=== PATIENT | male | born 1960 | race African-American/Black ===

== ENCOUNTER 2018-01-21 13:45 | Emergency (ER) | payer MEDICARE, OTHER ==
[2018-01-21] MEDS ORDERED: CARVEDILOL 12.5 MG TABLET PO ONE (14:48)
[2018-01-21] MEDS ORDERED: ASPIRIN 81 MG TABLET, CHEWABLE PO ONE (14:48)
[2018-01-21] MEDS ORDERED: ISOSORBIDE DINITRATE 20 MG TABLET PO ONE (14:49)
[2018-01-21] MEDS ORDERED: SPIRONOLACTONE 25 MG TABLET PO ONE (14:49)
[2018-01-21] MEDS ORDERED: HYDRALAZINE HCL 10 MG TABLET PO ONE (14:49)
[2018-01-21] MEDS ORDERED: FUROSEMIDE 20 MG TABLET PO ONE (14:49)
--- NOTE | 2018-01-21 15:03 | ER Document Report ---
ED Medical Screen (RME) - General Chief Complaint: Leg Swelling Stated Complaint: BILATERAL KNEE PAIN/RIGHT HIP PAIN Time Seen by Provider: 01/21/18 14:39 Mode of Arrival: Wheelchair Information source: Patient TRAVEL OUTSIDE OF THE [place] IN LAST 30 DAYS: No - HPI Patient complains to provider of: pain in right hip and knees Onset: Other - This 59-year-old male with a history of chronic aches and pains worsening pain in the bilateral knees as well as right hip over the last several days. He notes that he has been unable to obtain standard follow-up, he did have some swelling in his lower extremities previously which she was told may be related to his heart or potentially his kidneys. He has known hypertension and takes many medications for it but did not take any today as a result his blood pressure is markedly elevated. Nothing is seemed to help his pain since it started he does not try to take anything. He denies any history of surgeries in the past. Denies any trauma preceding this event. Denies any fevers, chills, abdominal pain, diarrhea constipation dysuria shortness of breath or chest pain. - Related Data Allergies/Adverse Reactions: lisinopril Allergy (Verified 01/21/18 14:47) Past Medical History - General Information source: Patient - Social History Chew tobacco use (# tins/day): No Frequency of alcohol use: Occasional Drug Abuse: None - Past Medical History Cardiac Medical History: Reports: Hx Hypertension Renal/ Medical History: Denies: Hx Peritoneal Dialysis Review of Systems - Review of Systems -: Yes All other systems reviewed and negative Physical Exam - Vital signs Vitals: Temp Pulse Resp BP Pulse Ox 98.9 F 110 H 18 195/126 H 97 01/21/18 13:52 01/21/18 13:52 01/21/18 13:52 01/21/18 13:52 01/21/18 13:52 - General General appearance: Appears well In distress: None - HEENT Head: Normocephalic Eyes: Normal Conjunctiva: Normal Cornea: Normal Extraocular movements intact: Yes - Respiratory Respiratory status: No respiratory distress Chest status: Nontender Breath sounds: Normal Chest palpation: Normal - Cardiovascular Rhythm: Regular Heart sounds: Normal auscultation Murmur: No - Abdominal Inspection: Normal Distension: No distension Tenderness: Nontender - Back Back: Normal - Extremities General upper extremity: Normal inspection, Nontender, Normal ROM, Normal strength General lower extremity: Other - The lower extremities are symmetric, there is normal range of motion in the hip, normal range of motion the knees and ankles as well Modest swelling of the left knee with no obvious effusion Normal range of motion in the knees, normal range of motion of the ankles Hip: Other - The right hip is tender to palpation, he does have intact range of motion in the right hip Thigh: Normal Knee: Other - The knees are relatively symmetric, the left knee is slightly swollen in comparison to the right, there is no obvious effusion there is a slight soft tissue swelling. The patella is not ballotable in either knee. Course - Re-evaluation Re-evalutation: 01/21/18 20:39 This a 4-year-old male who presents for pain in his hips as well as his knees bilaterally. He denies any systemic signs of infection or trauma's preceding this event. He has had aches and pains like this in the past for which [facility]. He denies any other illnesses similarly. We will obtain x-rays of these joints, examination demonstrates what likely represents osteoarthritis. X-ray of the pelvis demonstrates what appears to be avascular necrosis of the hips, will refer this patient to orthopedics for potential intervention and arthroplasty. Patient is in agreement with this at this time. - Vital Signs Vital signs: Temp Pulse Resp BP Pulse Ox 98.5 F 99 16 125/88 H 96 01/21/18 16:14 01/21/18 16:14 01/21/18 16:14 01/21/18 16:20 01/21/18 16:14 Doctor's Discharge - Discharge Clinical Impression: Avascular necrosis, Arthritis Knee pain, bilateral Qualifiers: Chronicity: acute Qualified Code(s): M25.561 - Pain in right knee Condition: Good Disposition: HOME, SELF-CARE Instructions: Arthritis ([facility]) Additional Instructions: Your seen today in the emergency department for your hip and knee pain. It was identified that you have avascular necrosis of your hips. This is a chronic disease for which she will likely require evaluation by an orthopedic surgeon. Schedule an appointment with an orthopedic surgeon this week to evaluate your hips and knees. You may require a hip replacement. Return for worsening fevers, chills, inability to walk. You should use the medication prescribed to you as needed for pain. Forms: Elevated Blood Pressure Referrals: JENNIFER PEDRO MD [ACTIVE STAFF] - Follow up in 1 week
--- NOTE | 2018-01-21 15:27 | RADIOLOGY REPORT (SQ) ---
EXAM DESCRIPTION: HIP RIGHT AP/LATERAL COMPLETED DATE/TIME: 01/21/2018 3:13 pm REASON FOR STUDY: hip pain COMPARISON: None. NUMBER OF VIEWS: Two views. TECHNIQUE: AP pelvis and additional frog-leg view of the right hip. LIMITATIONS: None. FINDINGS: MINERALIZATION: Normal. RIGHT HIP: Advanced avascular necrosis with sclerosis right femoral head, articular surface collapse, and a [id number] appearance of the right hip. No acute fracture LEFT HIP: Avascular necrosis left hip without collapse of the articular surface. No acute fracture PUBIS AND ISCHIUM: No fracture. PELVIS: No fracture. SACRUM: No fracture or dislocation. No worrisome bone lesions. LOWER LUMBAR SPINE: No fracture or dislocation. No worrisome bone lesions. No significant disc disea se. SOFT TISSUES: No findings. OTHER: No other significant finding. IMPRESSION: Bilateral avascular necrosis of the hips TECHNICAL DOCUMENTATION: JOB ID: [id number] [employer]- All Rights Reserved Reading location - IP/workstation name: [email or web address]
--- NOTE | 2018-01-21 15:27 | RADIOLOGY REPORT (SQ) ---
EXAM DESCRIPTION: KNEE BILATERAL 1-2 VIEWS COMPLETED DATE/TIME: 01/21/2018 3:13 pm REASON FOR STUDY: pain and swelling COMPARISON: None. NUMBER OF VIEWS: Two views right knee, two views left knee TECHNIQUE: AP and lateral standing bilateral knees. LIMITATIONS: None. FINDINGS: Normal bone density. No fracture or malalignment. Small bilateral knee joint effusions. No significant joint space narrowing or bony spurring IMPRESSION: Small bilateral knee joint effusions. Otherwise, Unremarkable study TECHNICAL DOCUMENTATION: JOB ID: [id number] All Rights Reserved Reading location - IP/workstation name: [email or web address]
[2018-01-21 16:20] VITALS: BP 125/88
[2018-01-21] MEDS ORDERED: HYDROCODONE/ACETAMINOPHEN 5-325 MG (6 TAB/ER DISP) PO PRN (16:33)
== END 2018-01-21 16:51 | disposition home or self-care (01) ==
LOC: ER 13:45
DX: M19.90 Unspecified osteoarthritis, unspecified site (principal); M79.89 Other specified soft tissue disorders; M25.551 Pain in right hip; M25.562 Pain in left knee; M25.561 Pain in right knee; I10 Essential (primary) hypertension
CPT/HCPCS: 99283; 73502; 73560; A9270 ×5; J3490

== ENCOUNTER → 2018-02-09 | Outpatient (CLI) | payer MEDICARE, OTHER ==
[2018-02-09 10:21] LABS: ABSOLUTE EOSINOPHILS # (AUTO) 0.1 10^3/uL (0.0-0.6); ABSOLUTE LYMPHOCYTES (AUTO) 1.2 10^3/uL (0.5-4.7); ABSOLUTE MONOCYTES (AUTO) 0.5 10^3/uL (0.1-1.4); ABSOLUTE NEUT (AUTO) 3.7 10^3/uL (1.7-8.2); BASOPHILS % (AUTO) 0.9 % (0-2); HEMATOCRIT 42.6 % (37.9-51.0); HEMOGLOBIN 14.2 g/dL (13.5-17.0); LYMPHOCYTES % (AUTO) 22.2 % (13-45); MEAN CORPUSCULAR HEMOGLOBIN 31.6 pg (27.0-33.4); MEAN CORPUSCULAR HGB CONC 33.4 g/dL (32.0-36.0); MEAN CORPUSCULAR VOLUME 95 fl (80-97); MONOCYTES % (AUTO) 9.3 % (3-13); PLATELET COUNT 165 10^3/uL (150-450); RED BLOOD COUNT 4.49 10^6/uL (4.35-5.55); RED CELL DISTRIBUTION WIDTH 15.7 % (11.5-14.0); SEGMENTED NEUTROPHILS % (AUTO) 66.6 % (42-78); TOTAL CELLS COUNTED % (AUTO) 100 %; WHITE BLOOD COUNT 5.5 10^3/uL (4.0-10.5)
[2018-02-09 10:35] LABS: APPEARANCE,URINE CLEAR; BILIRUBIN,URINE NEGATIVE (NEGATIVE); COLOR,URINE STRAW; GLUCOSE, URINE NEGATIVE (NEGATIVE); KETONES,URINE NEGATIVE (NEGATIVE); LEUKOCYTE ESTERASE,URINE NEGATIVE (NEGATIVE); NITRITE,URINE NEGATIVE (NEGATIVE); PROTEIN,URINE 30 mg/dL (NEGATIVE); URINE SPECIFIC GRAVITY 1.006; UROBILINOGEN,URINE NEGATIVE mg/dL (<2.0)
[2018-02-09 10:51] LABS: ANION GAP 14 (5-19); BLOOD UREA NITROGEN 25 mg/dL (7-20); CALCIUM 9.9 mg/dL (8.4-10.2); CARBON DIOXIDE 21 mmol/L (22-30); CHLORIDE 106 mmol/L (98-107); GLUCOSE 94 mg/dL (75-110); POTASSIUM 4.8 mmol/L (3.6-5.0); SODIUM 141.4 mmol/L (137-145)
--- NOTE | 2018-02-09 11:32 | EKG REPORT ---
SEVERITY:- ABNORMAL ECG - SINUS RHYTHM TRINI, CONSIDER BIATRIAL ABNORMALITIES LEFT BUNDLE BRANCH BLOCK : Confirmed by: Maeve Pitts MD 09-Feb-2018 11:32:15
--- NOTE | 2018-02-09 14:03 | RADIOLOGY REPORT (SQ) ---
EXAM DESCRIPTION: CHEST PA/LATERAL COMPLETED DATE/TIME: 02/09/2018 9:34 am REASON FOR STUDY: PRE-OP COMPARISON: None. EXAM PARAMETERS: NUMBER OF VIEWS: two views TECHNIQUE: Digital Frontal and Lateral radiographic views of the chest acquired. RADIATION DOSE: NA LIMITATIONS: none FINDINGS: LUNGS AND PLEURA: No opacities, masses or pneumothorax. No pleural effusion. MEDIASTINUM AND HILAR STRUCTURES: No masses or contour abnormalities. HEART AND VASCULAR STRUCTURES: Heart normal size. No evidence for failure. BONES: No acute findings. HARDWARE: None in the chest. OTHER: No other significant finding. IMPRESSION: NO SIGNIFICANT RADIOGRAPHIC FINDING IN THE CHEST. TECHNICAL DOCUMENTATION: JOB ID: [id number] [employer]- All Rights Reserved Reading location - IP/workstation name: [email or web address]
== END ==
LOC: OD 08:58
PROVIDERS: ATTEND Orthopaedic Surgery
DX: Z01.810 Encounter for preprocedural cardiovascular examination (principal); Z01.812 Encounter for preprocedural laboratory examination; Z01.818 Encounter for other preprocedural examination
CPT/HCPCS: 36415; 71046; 80048; 81001; 85025; 93005; 93010

== ENCOUNTER → 2018-02-26 | Outpatient (CLI) | payer MEDICARE, OTHER ==
[2018-02-26 08:35] LABS: ALANINE AMINOTRANSFERASE 25 U/L (21-72); ALBUMIN 3.9 g/dL (3.5-5.0); ALKALINE PHOSPHATASE 102 U/L (38-126); ANION GAP 13 (5-19); ASPARTATE AMINO TRANSFERASE 30 U/L (17-59); BILIRUBIN,DIRECT 0.3 mg/dL (0.0-0.4); BILIRUBIN,TOTAL 0.6 mg/dL (0.2-1.3); BLOOD UREA NITROGEN 41 mg/dL (7-20); CALCIUM 9.7 mg/dL (8.4-10.2); CARBON DIOXIDE 24 mmol/L (22-30); CHLORIDE 102 mmol/L (98-107); CHOLESTEROL 150.52 mg/dL (0-200); GLUCOSE 100 mg/dL (75-110); SODIUM 139.2 mmol/L (137-145); TOTAL PROTEIN 7.8 g/dL (6.3-8.2); TRIGLYCERIDES 65 mg/dL (<150)
[2018-02-26 08:46] LABS: DIRECT LDL 42 mg/dL (<100)
== END ==
LOC: OD 07:32
PROVIDERS: ATTEND Internal Medicine
DX: I25.10 Atherosclerotic heart disease of native coronary artery without angina pectoris (principal); I50.9 Heart failure, unspecified; N18.3 Chronic kidney disease, stage 3 (moderate); Z79.899 Other long term (current) drug therapy
CPT/HCPCS: 36415; 80053; 80061; 82306; 84443

== ENCOUNTER 2018-03-09 08:23 | Inpatient (IN) | payer MEDICARE, OTHER ==
[~2018-03-09 08:23] MED LIST: BUPIVACAINE HCL 0.25% /EPINEPHRINE INJ/PF 30 ML SDV ONE; BUPIVACAINE HCL/DEX-WATER/PF 15 MG/2 ML AMPULE ONE; BUPIVACAINE INJ/PF LIPOSOME/PF 266 MG/20 ML SDV IJ PRN; CEFAZOLIN INJ 1 GM VIAL IV PRN; IBUPROFEN 800 MG in DEXTROSE 5%-WATER 250 ML IV PRN; LANSOPRAZOLE 15 MG TAB.RAP.DR PO PRN; LIDOCAINE 0.5% INJ-PF (5 MG/ML) 50 ML SDV SUBCUT PRN; OXYCODONE HCL SR 10 MG TABLET PO PRN; VANCOMYCIN HCL 1,000 MG in DEXTROSE 5%-WATER 250 ML IV PRN
[2018-03-09] MEDS ORDERED: CEFAZOLIN INJ 1 GM VIAL ONE (08:53)
[2018-03-09] MEDS ORDERED: OXYCODONE HCL SR 10 MG TABLET PO ONE (08:54)
[2018-03-09] MEDS ORDERED: LANSOPRAZOLE 15 MG TAB.RAP.DR ONE (08:54)
[2018-03-09] MEDS: LACTATED RINGERS 1000 ML IV PRN ×2 (09:15→16:23)
[2018-03-09] MEDS ORDERED: HYDROMORPHONE HCL INJ/PF 2 MG/ML AMPULE ONE (10:16)
[2018-03-09] MEDS ORDERED: FENTANYL CITRATE INJ/PF 100 MCG/2 ML AMPUL ONE (10:16)
[2018-03-09] MEDS ORDERED: MIDAZOLAM 2 MG/2 ML INJ ONE (10:16)
[2018-03-09] MEDS ORDERED: ONDANSETRON HCL INJ/PF 4 MG/2 ML SDV ONE (10:16)
[2018-03-09] MEDS ORDERED: EPHEDRINE SULFATE INJ 50 MG/1 ML AMPULE ONE (10:16)
[2018-03-09] MEDS ORDERED: TRANEXAMIC ACID INJ/PF 1,000 MG/10 ML SDV IV ONE ×2 (10:17→15:30)
[2018-03-09] MEDS ORDERED: THROMBIN (BOVINE) TOPICAL 5000 UNIT VIAL ONE (10:43)
[2018-03-09] MEDS ORDERED: FENTANYL CITRATE INJ/PF 100 MCG/2 ML AMPUL IV PRN ×3 (12:10)
[2018-03-09] MEDS ORDERED: DIPHENHYDRAMINE HCL 50 MG/ML VIAL IV PRN ×2 (12:10→12:43)
[2018-03-09] MEDS ORDERED: MEPERIDINE HCL/PF INJ 25 MG/1 ML DISP.SYRIN IV PRN (12:10)
--- NOTE | 2018-03-09 12:42 | Operative Report ---
Operative Report DATE OF SURGERY: 03/09/18 PREOPERATIVE DIAGNOSIS: Right hip avascular necrosis OPERATION: Right hip arthroplasty SURGEON: JENNIFER PEDRO ANESTHESIA: Spinal TISSUE REMOVED OR ALTERED: Femoral head to pathology ESTIMATED BLOOD LOSS: 100 PROCEDURE: Implants used: Femur: Cheikh Accolade 2 stem, size 5 Acetabular shell: 54 mm hemispherical shell Liner: 36 mm flat cross-link polyethylene liner Head: 36 mm chrome cobalt head +5 neck The patient is placed in a left lateral decubitus position on the operating table. The right lower extremity and hindquarter is prepped and draped in a sterile fashion. A curvilinear incision was made over the greater trochanter a posterior approach the hip was taken. The femoral head is dislocated and the femoral neck transected using an oscillating saw. Attention was next turned to the acetabulum. Soft tissues cleared off the acetabulum using electrocautery. The acetabulum was then prepared using a series of hemispherical reamers until a 54 millimeters reamer is seated. Subsequently a 34 millimeters Cheikh titanium hemispherical shell is impacted into position and secured with one screw. A standard flat 6 millimeters cross- link liner is impacted into the shell. Attention was next turned to the femur. Access is gained to the femoral canal using a box osteotome to the piriformis fossa. The femur is then prepared using a series of broaches until a number 5 broach is seated. A trial reduction was now performed using a 36 millimeters head with 5 neck. Preoperative leg length was recreated and is excellent anterior posterior stability. A decision was made to proceed with the above construct. All trial implants were removed. The wound is irrigated with pulsed lavage. A number 5 stem is impacted into the femoral canal. A trial reduction was again performed with a 36 mm head and a +5 neck. Findings as previously. The hip was dislocated one last time and the final chrome-cobalt head is impacted onto the trunnion. The hip was reduced. Wound is copiously irrigated with pulsed lavage. Sent closed in layers using interrupted Vicryl followed by roc. A sterile dressing is applied and the patient's returned to recovery room in satisfactory patient.
[2018-03-09] MEDS ORDERED: MORPHINE SULFATE 10 MG/ML INJ IV PRN ×4 (12:43)
[2018-03-09] MEDS ORDERED: ACETAMINOPHEN 325 MG TABLET PO PRN (12:43)
[2018-03-09] MEDS ORDERED: ONDANSETRON HCL INJ/PF 4 MG/2 ML SDV IV PRN (12:43)
[2018-03-09] MEDS ORDERED: ZOLPIDEM TARTRATE 5 MG TABLET PO PRN (12:43)
[2018-03-09] MEDS ORDERED: OXYCODONE HCL IR 5 MG TABLET PO PRN (12:43)
[2018-03-09] MEDS ORDERED: MAG HYDROX/AL HYDROX/SIMETH SUSP 30 ML UDCUP PO PRN (12:43)
[2018-03-09] MEDS ORDERED: ONDANSETRON 4 MG TAB.RAPDIS PO PRN (12:43)
[2018-03-09] MEDS ORDERED: RINGERS SOLUTION,LACTATED 1,000 ML IV PRN (12:43)
--- NOTE | 2018-03-09 13:57 | RADIOLOGY REPORT (SQ) ---
EXAM DESCRIPTION: PELVIS AP COMPLETED DATE/TIME: 03/09/2018 1:21 pm REASON FOR STUDY: Post Op Long Cassette in PACU M16.11 UNILATERAL PRIMARY OSTEOARTHRITIS, RIGHT HI P COMPARISON: None. NUMBER OF VIEWS: One view TECHNIQUE: AP Pelvis LIMITATIONS: None. FINDINGS: A postoperative image of the pelvis and proximal femurs shows a right hip arthroplasty in good position. IMPRESSION: Right hip arthroplasty. Refer to operative note for further information. TECHNICAL DOCUMENTATION: JOB ID: [id number] [employer]- All Rights Reserved Reading location - IP/workstation name: [email or web address]
[2018-03-09] MEDS ORDERED: HYDRALAZINE HCL 10 MG TABLET PO SCH (14:00)
[2018-03-09] MEDS: PREGABALIN 75 MG CAPSULE PO SCH (17:27)
[2018-03-09] MEDS: SENNOSIDES/DOCUSATE 8.6-50 MG 1 EACH TABLET PO SCH (17:27)
[2018-03-09] MEDS: HYDRALAZINE HCL 10 MG TABLET PO SCH (17:27)
[2018-03-09] MEDS: IBUPROFEN 800 MG in NORMAL SALINE 250 ML IV SCH (17:28)
[2018-03-09] MEDS ORDERED: ACETAMINOPHEN 1,000 MG/100 ML RTUPB IV ONE (18:43)
[2018-03-09] MEDS: OXYCODONE HCL SR 10 MG TABLET PO SCH (21:31)
[2018-03-09] MEDS: ISOSORBIDE DINITRATE 20 MG TABLET PO SCH (21:32)
[2018-03-09] MEDS: CARVEDILOL 6.25 MG TABLET PO SCH (21:32)
[2018-03-09] MEDS ORDERED: ISOSORBIDE DINITRATE 10 MG TABLET PO SCH (22:00)
[2018-03-10] MEDS: HYDRALAZINE HCL 10 MG TABLET PO SCH ×4 (01:00→18:21)
[2018-03-10] MEDS ORDERED: VANCOMYCIN HCL 1,000 MG in DEXTROSE 5%-WATER 250 ML IV ONE (01:00)
[2018-03-10] MEDS: IBUPROFEN 800 MG in NORMAL SALINE 250 ML IV SCH ×3 (02:13→18:21)
[2018-03-10] MEDS: LANSOPRAZOLE 30 MG TAB.RAP.DR PO SCH (06:25)
--- NOTE | 2018-03-10 07:20 | PDOC PROGRESS REPORT ---
Subjective Progress Note for:: 03/10/18 Reason For Visit: RIGHT HIP AVASCULAR NECROSIS 58-year-old black male postop day 1 status post right hip arthroplasty. Patient with no complaints overnight. Patient was not seen by physical therapy yesterday because of prolonged acting spinal anesthetic. Physical Exam Vital Signs: Temp Pulse Resp BP Pulse Ox 36.8 C 78 18 148/80 H 98 03/09/18 23:32 03/09/18 23:32 03/09/18 19:30 03/09/18 23:32 03/09/18 23:32 Intake & Output 03/09/18 03/10/18 03/11/18 06:59 06:59 06:59 Intake Total 4000 Output Total 3275 Balance 725 Physical Exam: Middle-aged black male sitting upright in bed smiling and in no apparent distress. Patient is alert oriented and appropriate. General appearance: PRESENT: no acute distress Head exam: PRESENT: normocephalic Respiratory exam: PRESENT: unlabored Cardiovascular exam: PRESENT: RRR Pulses: PRESENT: +1 pedal pulses bilateral Vascular exam: PRESENT: normal capillary refill GI/Abdominal exam: PRESENT: soft Rectal exam: PRESENT: deferred Extremities exam: PRESENT: other - Right hip dressing clean dry and intact. Leg lengths are equal. Distal neurovascular examination is intact. Neurological exam: PRESENT: alert, awake, oriented to person, oriented to place , oriented to time, oriented to situation. ABSENT: motor sensory deficit Psychiatric exam: PRESENT: appropriate affect, normal mood. ABSENT: homicidal ideation, suicidal ideation Skin exam: PRESENT: dry, intact, warm. ABSENT: cyanosis, rash Results Laboratory Results: 03/09/18 08:46 03/09/18 03/09/18 08:46 08:46 Potassium 4.9 Blood Type O POSITIVE Antibody Screen NEGATIVE Impressions: Pelvis X-Ray 03/09/18 12:44 IMPRESSION: Right hip arthroplasty. Refer to operative note for further information. Status: Imported from PACS Assessment & Plan - Diagnosis (1) Arthritis of right hip Is this a current diagnosis for this admission?: Yes Plan: Patient to be mobilized with physical therapy today and weightbearing as tolerated basis. Anticipate discharge home tomorrow with home health services and DME. - Time Time Spent with patient: Less than 15 minutes Anticipated discharge: Home with Homehealth Within: within 24 hours
[2018-03-10 07:44] LABS: HEMATOCRIT 33.2 % (37.9-51.0); HEMOGLOBIN 11.3 g/dL (13.5-17.0); MEAN CORPUSCULAR HEMOGLOBIN 31.8 pg (27.0-33.4); MEAN CORPUSCULAR HGB CONC 33.9 g/dL (32.0-36.0); MEAN CORPUSCULAR VOLUME 94 fl (80-97); PLATELET COUNT 142 10^3/uL (150-450); RED BLOOD COUNT 3.54 10^6/uL (4.35-5.55); RED CELL DISTRIBUTION WIDTH 15.6 % (11.5-14.0); WHITE BLOOD COUNT 9.2 10^3/uL (4.0-10.5)
[2018-03-10 07:57] LABS: ANION GAP 11 (5-19); BLOOD UREA NITROGEN 39 mg/dL (7-20); CALCIUM 8.8 mg/dL (8.4-10.2); CARBON DIOXIDE 18 mmol/L (22-30); CHLORIDE 108 mmol/L (98-107); GLUCOSE 122 mg/dL (75-110); POTASSIUM 4.6 mmol/L (3.6-5.0); SODIUM 136.6 mmol/L (137-145)
[2018-03-10] MEDS ORDERED: CARVEDILOL PHOSPHATE 20 MG PO SCH (10:00)
[2018-03-10] MEDS: SENNOSIDES/DOCUSATE 8.6-50 MG 1 EACH TABLET PO SCH ×2 (13:59→18:21)
[2018-03-10] MEDS: PRENATAL VITAMIN W DHA CAPSULE PO SCH (13:59)
[2018-03-10] MEDS: OXYCODONE HCL SR 10 MG TABLET PO SCH ×2 (13:59→21:39)
[2018-03-10] MEDS: SPIRONOLACTONE 25 MG TABLET PO SCH (14:00)
[2018-03-10] MEDS: ASPIRIN 81 MG TABLET, CHEWABLE PO SCH (14:00)
[2018-03-10] MEDS: FUROSEMIDE 40 MG TABLET PO SCH (14:00)
[2018-03-10] MEDS: PREGABALIN 75 MG CAPSULE PO SCH ×2 (14:00→18:21)
[2018-03-10] MEDS: CARVEDILOL 6.25 MG TABLET PO SCH ×2 (14:00→21:38)
[2018-03-10] MEDS: ISOSORBIDE DINITRATE 20 MG TABLET PO SCH ×2 (16:35→21:38)
[2018-03-11] MEDS: HYDRALAZINE HCL 10 MG TABLET PO SCH ×3 (00:23→11:44)
[2018-03-11] MEDS: IBUPROFEN 800 MG in NORMAL SALINE 250 ML IV SCH (02:02)
[2018-03-11 05:48] LABS: HEMATOCRIT 33.4 % (37.9-51.0); MEAN CORPUSCULAR HEMOGLOBIN 31.3 pg (27.0-33.4); MEAN CORPUSCULAR VOLUME 95 fl (80-97); PLATELET COUNT 141 10^3/uL (150-450); RED BLOOD COUNT 3.52 10^6/uL (4.35-5.55); RED CELL DISTRIBUTION WIDTH 15.7 % (11.5-14.0); WHITE BLOOD COUNT 8.1 10^3/uL (4.0-10.5)
[2018-03-11] MEDS: LANSOPRAZOLE 30 MG TAB.RAP.DR PO SCH (05:56)
[2018-03-11 08:34] VITALS: BP 172/80
--- NOTE | 2018-03-11 08:42 | PDOC DISCHARGE SUMMARY ---
General - Admit/Disc Date/PCP Admission Date/Primary Care Provider: 03/09/18 08:23 DAVIAN SANDY MD Discharge Date: 03/11/18 - Discharge Diagnosis (1) Arthritis of right hip Is this a current diagnosis for this admission?: Yes - Additional Information Resuscitation Status: Full Code Home Medications: Aspirin [Aspirin 81 mg Chewable Tablet] 81 mg PO DAILY 02/26/18 Carvedilol Phosphate [Carvedilol ER] 20 mg PO DAILY 02/26/18 Furosemide [Lasix 40 mg Tablet] 40 mg PO DAILY 02/26/18 Hydralazine HCl [Apresoline 10 mg Tablet] 10 mg PO QID 02/26/18 Isosorbide Dinitrate [Isordil Titradose 10 mg Tablet] 20 mg PO BID 02/26/18 Spironolactone [Aldactone 25 mg Tablet] 25 mg PO DAILY 02/26/18 History of Present Illness History of Present Illness: OLYA RACHEL is a 58 year old male The patient is a 58-year-old black male with progressive right hip pain and functional disability secondary to osteoarthritis and may be avascular necrosis. Patient is admitted for elective right hip arthroplasty. Hospital Course Hospital Course: Patient is admitted through the operating where he undergoes uncomplicated right hip arthroplasty. Is returned to the floor in satisfactory condition. He is not initially seen by physical therapy on the day of surgery because of the timing of his return to the floor. He seen by physical therapy the next day at which point is not appreciated that he has a right foot drop that is associate with both motor and sensory components. He seen by physical therapy makes excellent progress with ambulation. By the second postoperative morning both his motor function and his sensory function seem to be improving. He is ready for discharge with home health services and DME. Physical Exam Vital Signs: Temp Pulse Resp BP Pulse Ox 36.3 C 65 15 172/80 H 97 03/11/18 08:00 03/11/18 08:00 03/11/18 08:00 03/11/18 08:00 03/11/18 08:00 Intake & Output 03/10/18 03/11/18 03/12/18 06:59 06:59 06:59 Intake Total 4250 1636 Output Total 3275 1575 Balance 975 61 Weight 62.5 kg Physical Exam: Small thin middle-aged black male lying in a hospital bed who is alert appropriate and conversant. General appearance: PRESENT: no acute distress Head exam: PRESENT: normocephalic Respiratory exam: PRESENT: unlabored Cardiovascular exam: PRESENT: RRR Pulses: PRESENT: +1 pedal pulses bilateral Vascular exam: PRESENT: normal capillary refill GI/Abdominal exam: PRESENT: soft Rectal exam: PRESENT: deferred Extremities exam: PRESENT: other - Right hip dressing is clean dry and intact. Leg lengths are clinically equal. Motor function to the plantar flexors of the right lower extremity are intact. Motor function to the dorsiflexors of the ankle and the toes is less than 3 out of 5. There is brisk capillary refill. Neurological exam: PRESENT: alert, awake, oriented to person, oriented to place , oriented to time, oriented to situation, motor sensory deficit Psychiatric exam: PRESENT: appropriate affect, normal mood. ABSENT: homicidal ideation, suicidal ideation Skin exam: PRESENT: dry, intact, warm. ABSENT: cyanosis, rash Results Laboratory Results: 03/11/18 05:17 03/10/18 07:20 03/11/18 05:17 WBC 8.1 RBC 3.52 L Hgb 11.0 L Hct 33.4 L MCV 95 MCH 31.3 MCHC 33.0 RDW 15.7 H Plt Count 141 L Impressions: Pelvis X-Ray 03/09/18 12:44 IMPRESSION: Right hip arthroplasty. Refer to operative note for further information. Status: Imported from PACS Qualifiers - * PATIENT BEING DISCHARGED WITH ANY OF THE FOLLOWING DIAGNOSIS: No VTE patient discharged on overlapping Therapy?: Yes Plan Discharge Plan: Patient ready for discharge home with home health services in the knee. Follow- up with Dr. Girish Barney [place] for surgery in 2 weeks for staple removal. Time Spent: Less than 30 Minutes
[2018-03-11] MEDS ORDERED: IBUPROFEN 800 MG in DEXTROSE 5%-WATER 250 ML IV SCH (10:00)
[2018-03-11] MEDS: SENNOSIDES/DOCUSATE 8.6-50 MG 1 EACH TABLET PO SCH (10:24)
[2018-03-11] MEDS: ASPIRIN 81 MG TABLET, CHEWABLE PO SCH (10:24)
[2018-03-11] MEDS: SPIRONOLACTONE 25 MG TABLET PO SCH (10:24)
[2018-03-11] MEDS: OXYCODONE HCL SR 10 MG TABLET PO SCH (10:24)
[2018-03-11] MEDS: PRENATAL VITAMIN W DHA CAPSULE PO SCH (10:25)
[2018-03-11] MEDS: ISOSORBIDE DINITRATE 20 MG TABLET PO SCH (10:25)
[2018-03-11] MEDS: PREGABALIN 75 MG CAPSULE PO SCH (10:25)
[2018-03-11] MEDS: FUROSEMIDE 40 MG TABLET PO SCH (10:25)
[2018-03-11] MEDS: CARVEDILOL 6.25 MG TABLET PO SCH (10:25)
== END 2018-03-11 15:13 | disposition home health service (06) | DRG 470 ==
LOC: INOR 08:23 → 4S 15:00
PROVIDERS: ADMIT Orthopaedic Surgery; ATTEND Orthopaedic Surgery
PROC: 0SR90JZ Replacement of Right Hip Joint with Synthetic Substitute, Open Approach (ICD-10-PCS; principal; 2018-03-09 11:15)
DX: M16.11 Unilateral primary osteoarthritis, right hip (principal); Z79.82 Long term (current) use of aspirin; Z79.899 Other long term (current) drug therapy; I10 Essential (primary) hypertension; Z88.8 Allergy status to other drugs, medicaments and biological substances
CPT/HCPCS: 01214; 36415; 72170; 80048; 84132; 85027; 86850; 86900; 86901; 88304; 88311; 94799; C1776; G8978-GP; G8979-GP; G8987-GO; G8988-GO; J0690; J1170; J1741; J2250; J2405; J3010; J3370; J3490; J7050; J7060; J7120

== ENCOUNTER 2018-08-21 02:25 | Emergency (ER) | payer MEDICARE ==
[2018-08-21 03:03] LABS: ABSOLUTE BASOPHILS # (AUTO) 0.1 10^3/uL (0.0-0.2); ABSOLUTE LYMPHOCYTES (AUTO) 0.5 10^3/uL (0.5-4.7); ABSOLUTE MONOCYTES (AUTO) 0.5 10^3/uL (0.1-1.4); ABSOLUTE NEUT (AUTO) 5.5 10^3/uL (1.7-8.2); BASOPHILS % (AUTO) 1.2 % (0-2); EOSINOPHILS % (AUTO) 0.6 % (0-6); HEMATOCRIT 38.3 % (37.9-51.0); HEMOGLOBIN 12.2 g/dL (13.5-17.0); LYMPHOCYTES % (AUTO) 7.9 % (13-45); MEAN CORPUSCULAR HEMOGLOBIN 26.8 pg (27.0-33.4); MEAN CORPUSCULAR VOLUME 84 fl (80-97); MONOCYTES % (AUTO) 7.6 % (3-13); PLATELET COUNT 226 10^3/uL (150-450); RED BLOOD COUNT 4.56 10^6/uL (4.35-5.55); RED CELL DISTRIBUTION WIDTH 19.5 % (11.5-14.0); SEGMENTED NEUTROPHILS % (AUTO) 82.7 % (42-78); TOTAL CELLS COUNTED % (AUTO) 100 %; WHITE BLOOD COUNT 6.7 10^3/uL (4.0-10.5)
[2018-08-21 03:05] LABS: INTERNATIONAL RATION (INR) 1.36; PARTIAL THROMBOPLASTIN TIME 33.5 SEC (23.5-35.8); PROTHROMBIN TIME 17.5 SEC (11.4-15.4)
--- NOTE | 2018-08-21 03:12 | RADIOLOGY REPORT (SQ) ---
EXAM DESCRIPTION: XR CHEST 1 VIEW COMPLETED DATE/TME: 08/21/2018 02:43 CLINICAL HISTORY: 58 years Male, stroke COMPARISON: 02/09/18 NUMBER OF VIEWS/TECHNIQUE: 1/AP FINDINGS: Adequate lung volume, mild central edema pattern, moderate hazy opacity-effusion of the right lower hemithorax, mildly enlarged cardiac silhouette, and intact bony thorax. IMPRESSION: Mild CHF pattern. Differential diagnosis includes pulmonary edema and atypical pneumonia.
--- NOTE | 2018-08-21 03:42 | RADIOLOGY REPORT (SQ) ---
EXAM DESCRIPTION: CT NECK ANGIOGRAPHY WITHOUT THEN WITH IV CONTRAST, CT HEAD ANGIOGRAPHY WITHOUT THEN WITH IV CONTRAST COMPLETED DATE/TME: 08/21/2018 02:43 CLINICAL HISTORY: 58 years, Male, stroke COMPARISON: None. TECHNIQUE: Axial CT images of the head and neck were obtained after the injection of IV contrast. MPR and MIP reconstructions were performed. DLP 1402. Images stored on PACS. All CT scanners at this facility use dose modulation, iterative reconstruction, and/or weight based dosing when appropriate to reduce radiation dose to as low as reasonably achievable (ALARA). [facility]: Dose Right [facility]: CareDose [facility]: Dose Right [facility]: Teradose 4D [facility]: Smart Technologies LIMITATIONS: None. FINDINGS: CTA NECK: A large right pleural effusion is partially visualized Aortic arch: Bovine arch. Mild atherosclerosis. No significant great vessel origin stenosis. Moderate atherosclerotic calcifications of the origin of the left subclavian artery Left carotid system: There is approximately 60% stenosis of the carotid bulb by calcified atherosclerotic plaque. There is less than 30% stenosis of the proximal left internal carotid artery by calcified atherosclerotic plaque Right carotid system: The common carotid artery, carotid bifurcation , and internal carotid artery have normal course, caliber, and contour without atherosclerosis or stenosis by NASCET criteria Vertebral arteries: Left dominant system. Normal course, caliber, and contour without atherosclerosis or stenosis>] Nonvascular tissues: No mucosal contour abnormality, abnormal enhancement, or asymmetry. Normal salivary and thyroid glands. No lymphadenopathy. CTA BRAIN: Distal Internal carotid arteries: Normal course, caliber, and contour without atherosclerosis or stenosis [place] of [place]: Standard configuration without proximal stenosis or aneurysm. Anterior cerebral arteries: No focal stenosis or aneurysm. Middle cerebral arteries: No focal stenosis or aneurysm Posterior cerebral arteries: No focal stenosis or aneurysm. Vertebrobasilar circulation: The intradural vertebral arteries, basilar artery, and all cerebellar branches are patent without focal stenosis or aneurysm. Veins: The major dural venous sinus, cortical and deep cerebral veins are patent. Paranasal sinuses: Clear IMPRESSION: No major branch occlusion, flow-limiting stenosis or aneurysm is identified intracranially. No hemodynamic significant stenosis of the bilateral cervical portions of the internal carotid arteries. Approximate 60% stenosis of the left carotid bulb. No cervical vertebral stenosis. TECHNICAL DOCUMENTATION: Quality ID # 436: Final reports with documentation of one or more dose reduction techniques (e.g., Automated exposure control, adjustment of the mA and/or kV according to patient size, use of iterative reconstruction technique) copyright 2010 [email or web address]- All Rights Reserved
[2018-08-21 03:49] LABS: ALANINE AMINOTRANSFERASE 83 U/L (21-72); ALBUMIN 2.5 g/dL (3.5-5.0); ALKALINE PHOSPHATASE 297 U/L (38-126); ANION GAP 12 (5-19); ASPARTATE AMINO TRANSFERASE 56 U/L (17-59); BILIRUBIN,DIRECT 1.1 mg/dL (0.0-0.4); BILIRUBIN,TOTAL 1.3 mg/dL (0.2-1.3); BLOOD UREA NITROGEN 43 mg/dL (7-20); CALCIUM 8.2 mg/dL (8.4-10.2); CARBON DIOXIDE 17 mmol/L (22-30); CHLORIDE 110 mmol/L (98-107); CREATINE KINASE 124 U/L (55-170); GLUCOSE 95 mg/dL (75-110); POTASSIUM 4.3 mmol/L (3.6-5.0); TOTAL PROTEIN 5.8 g/dL (6.3-8.2)
[2018-08-21 04:00] LABS: CREATINE KINASE MB 4.09 ng/mL (<4.55)
[2018-08-21] MEDS ORDERED: ASPIRIN 300 MG SUPP, RECTAL PR ONE (04:04)
[2018-08-21 04:17] LABS: TROPONIN I 0.687 ng/mL
[2018-08-21] MEDS ORDERED: FUROSEMIDE INJ/PF 40 MG/4 ML SDV IV ONE (04:57)
--- NOTE | 2018-08-21 05:22 | RADIOLOGY REPORT (SQ) ---
EXAM DESCRIPTION: CT HEAD WITHOUT IV CONTRAST COMPLETED DATE/TME: 08/21/2018 00:00 CLINICAL HISTORY: 58 years, Male, possible stroke COMPARISON: None. TECHNIQUE: Axial CT images of the brain were obtained without contrast. Sagittal and coronal reformats were performed. DLP 1402. Images stored on PACS. All CT scanners at this facility use dose modulation, iterative reconstruction, and/or weight based dosing when appropriate to reduce radiation dose to as low as reasonably achievable (ALARA). [facility]: Dose Right [facility]: CareDose [facility]: Dose Right [facility]: Teradose 4D [facility]: [employer] LIMITATIONS: None. FINDINGS: There is no cortical infarct, hemorrhage, mass, edema, hydrocephalus, or extra-axial fluid collection. The lou-white matter differentiation is preserved. There is mild diffuse cerebral atrophy with moderate periventricular and deep white matter microvascular changes. The paranasal sinuses and mastoid air cells are clear. There is no acute fracture. IMPRESSION: No acute intracranial abnormality. TECHNICAL DOCUMENTATION: Quality ID # 436: Final reports with documentation of one or more dose reduction techniques (e.g., Automated exposure control, adjustment of the mA and/or kV according to patient size, use of iterative reconstruction technique) copyright 2010 [email or web address]- All Rights Reserved
--- NOTE | 2018-08-21 05:29 | ER Document Report ---
Entered by SONIA LOPEZ SCRIBE 08/21/18 0250 Acting as scribe for:ALKA WASHBURN DO ED General - General Chief Complaint: S/S of Possible Stroke Stated Complaint: SWOLLEN FEET Time Seen by Provider: 08/21/18 02:32 Primary Care Provider: JACKI JOHNSON MD [Primary Care Provider] - Follow up as needed Mode of Arrival: Ambulatory Information source: Patient Notes: Patient is a 58 year old male with renal failure, HTN, CHF presenting to the emergency department via EMS due to altered mental status. EMS states the patient was found laying on the floor by his family approximately 1hr prior to arrival. Family states the patient is able to talk at baseline and report his last known well was at 2000 last night. EMS states the patient was found covered in lemon pie. They state his pupils were pinpoint and he had decreased respirations so they proceeded to administer 3mg of Narcan which increased his respirations. They also report the patient's right arm is held in flexion. EMS reports a history of renal failure. TRAVEL OUTSIDE OF THE [place] IN LAST 30 DAYS: No - Related Data Allergies/Adverse Reactions: lisinopril Allergy (Verified 03/09/18 09:47) Past Medical History - General Information source: Emergency Med Personnel, [facility] Records - Social History Smoking Status: Unknown if Ever Smoked Family History: Reviewed & Not Pertinent - Past Medical History Cardiac Medical History: Reports: Hx Hypertension Musculoskeletal Medical History: Reports Hx Arthritis - hips Review of Systems - Review of Systems -: Yes ROS unobtainable due to patient's medical condition Neurological/Psychological: See HPI Physical Exam - Vital signs Vitals: Temp Resp BP Pulse Ox 97.7 F 23 H 160/99 H 98 08/21/18 02:40 08/21/18 02:40 08/21/18 02:40 08/21/18 02:40 Interpretation: Hypertensive - Notes Notes: GENERAL: Drowsy. See Neuro below. HEAD: Normocephalic, atraumatic. EYES: Pupils equal, round, and reactive to light. Arcus senilis, gaze deviation to the left. ENT: Oral mucosa moist, tongue midline. NECK: Full range of motion. Supple. Trachea midline. LUNGS: Clear to auscultation bilaterally, no wheezes, rales, or rhonchi. No respiratory distress. HEART: Regular rate and rhythm. No murmurs, gallops, or rubs. ABDOMEN: Soft, non-tender. Non-distended. Bowel sounds present in all 4 quadrants. No guarding, rigidity, or rebound. EXTREMITIES: Moves all 4 extremities spontaneously. 3+ pitting edema to the BLE, left foot is slightly larger than right. Radial and dorsalis pedis pulses 2/4 bilaterally. No cyanosis. NEUROLOGICAL: Drowsy. Able to close and open eyes on command, does not follow commands to squeeze fingers. Aphasia. Does not withdraw from painful stimuli, does not differentiate between sharp/dull testing. Right facial droop, does not change with grimace. Resists movement of right arm which is held at flexion of the right elbow over the abdomen. Slight gaze deviation to the left, no evidence of extinction. Able to lift both left and right leg and maintain them in the air for 5 seconds. Unable to follow commands well enough to test [id number] and [id number]. PSYCH: Drowsy. SKIN: Warm, dry. No rashes or lesions noted. Course - Re-evaluation Re-evalutation: 08/21/18 05:22 Patient was last known normal at 8 PM, he did not arrive here until 2:30 AM, he is well outside of timeframe for TPA, sent for CT of the head followed by CTA of the head and neck despite renal failure to look for large vessel occlusion that might be amenable to clot retrieval. CT scan of head did not show any bleed, CT angiogram of the head and neck did not show any large vessel occlusion. CBC shows mild anemia with hemoglobin 12.2, coags are prolonged with a PT of 17.5 and INR of 1.36, CMP shows low CO2 at 17, acute on chronic renal failure with a BUN of 43 and a creatinine of 3.09, cardiac enzymes showed non-STEMI with a troponin of 0.687, acute congestive heart failure with a proBNP of 23,000, chest x-ray is consistent with this as well, EKG is nonischemic. Patient is not hypoxic. Patient was given rectal aspirin for both his stroke and his PR. Discussed case with transfer center and then discussed with Dr. Patricio the neurologist as well. He accepts the patient in transfer, helicopter has been auto launched and is landing now. He recommends against giving Lovenox at this time and holding off until he arrives at [facility] for further assessment. 08/21/18 05:22 08/21/18 05:28 Helicopter is at bedside. Patient remained stable for transport. - Vital Signs Vital signs: Temp Pulse Resp BP Pulse Ox 97.7 F 25 H 181/128 H 100 08/21/18 02:40 08/21/18 05:01 08/21/18 05:01 08/21/18 05:01 - Laboratory Result Diagrams: 08/21/18 02:50 08/21/18 02:50 Laboratory results interpreted by me: 08/21/18 08/21/18 08/21/18 02:50 02:50 02:50 Hgb 12.2 L MCH 26.8 L RDW 19.5 H Seg Neutrophils % 82.7 H Lymphocytes % 7.9 L PT 17.5 H Chloride 110 H Carbon Dioxide 17 L BUN 43 H Creatinine 3.09 H Est GFR ( Amer) 25 L Est GFR (Non-Af Amer) 21 L Calcium 8.2 L Direct Bilirubin 1.1 H ALT 83 H Alkaline Phosphatase 297 H NT-Pro-B Natriuret Pep Total Protein 5.8 L Albumin 2.5 L 08/21/18 02:50 Hgb MCH RDW Seg Neutrophils % Lymphocytes % PT Chloride Carbon Dioxide BUN Creatinine Est GFR ( Amer) Est GFR (Non-Af Amer) Calcium Direct Bilirubin ALT Alkaline Phosphatase NT-Pro-B Natriuret Pep 74067 H Total Protein Albumin - EKG Interpretation by Me Additional EKG results interpreted by me: 08/21/18 02:49 EKG shows sinus tachycardia at a rate of 116, left bundle branch block, 1 PVC, no sgarbossa criteria per my interpretation. Critical Care Note - Critical Care Note Total time excluding time spent on procedures (mins): 60 Discharge - Discharge Clinical Impression: Acute ischemic stroke, NSTEMI (non-ST elevated myocardial infarction) Acute CHF Qualifiers: Heart failure type: unspecified Qualified Code(s): I50.9 - Heart failure, unspecified Acute on chronic renal failure Qualifiers: Acute renal failure type: unspecified Chronic kidney disease stage: stage 4 (severe) Qualified Code(s): N17.9 - Acute kidney failure, unspecified; N18.4 - Chronic kidney disease, stage 4 (severe) Condition: Critical Disposition: [facility]ICAL ACCESS [facility]PITAL Referrals: JACKI JOHNSON MD [Primary Care Provider] - Follow up as needed ED Alte[employer]ase [employer]/Exc Criteria - Date/Time patient last known well: Date/Time: 08/20/18 20:00 - Date/Time patient arrived in ED: _: 08/21/18 02:25 - Inclusion Criteria: 1: Patient presented to ED within 3 hours of acute ischemic stroke symptom o nset? -: No 2: Did baseline CT exclude intracranial hemorrhage and/or other risk factors? -: Yes 3: Is the age of the patient 18 years of age or greater? -: Yes : If any of the above questions are answered "NO" then stop, patient is not a candidate for Alteplase, : If all of the above questions are answered "YES" then continue with Exclusion Criteria. - Exclusion Criteria: 1: Is there evidence of intracranial hemorrhage on baseline CT? 2: Is there suspicion of subarachnoid hemorrhage (even if CT negative)? 3: Is there a history of serious head trauma, recent previous stroke or PR within 3 months? 4: Does the patient have a clinical presentation consistent with PR or post-PR pericarditis? 5: Is there history of intracranial hemorrhage? 6: On repeated measurement is Systolic BP greater than 185mmHg or Diastolic BP greater that 110 mmHg and is aggressive treatment needed to reduce blood pressure to these limits (e.g. constant infusion of an anti-hypertensive)? 7: Did the patient awake with stroke symptoms? 8: Has the patient had a lumbar puncture or an arterial puncture at a non-compressile site within 7 days? 9: With in the last 14 days did the patient have surgery or major trauma? 10: Is the patient or less than 2 weeks? 11: Was there any active bleeding or acute trauma? 12: Does the patient have intracranial neoplasm, arteriovenous malformation or aneurysm? 13: Does the patient have abnormal glucose (less than 50 or greater than 400 mg/dl)? Record glucose in Comment. 14: Patient has rapidly improving symptoms at the time Alteplase is to be Administered. 15: Does the patient have any risks for bleeding, including but not limited to: a.: Current use of Coumadin with PT greater than 15 seconds or INR greater than 1.7. b.: Current use of Pradaxa (Dabigatran). c.: Heparin administereed within the past 48 hours and PTT elevated. d.: Platelet count less than 100,000/mm. e.: Major surgery or serious trauma within 14 days. f.: Gastrointestinal or gynecological urinary bleeding within 14 days. g.: Myocardial Infarction (PR) within 3 months. : If the answer to any of the above questions is "YES" then stop, the patient is not a candidate for Alteplase. : If the answer to all of the above questions is "NO" then the patient may be eligible for the Administration of Alteplase. : If the patient is noted to have seizure activity at onset of Stroke symptoms; Consult Neurologist for further evaluation. - The patient is: -: Included and is eligible to receive Alteplase. *Initiate bed placement at higher level of care* Reviewed risks & benefits of thrombolytic therapy: I have reviewed the risks and benefits of thrombolytic therapy with the patient and/or his/her family. -: Excluded and not eligible to receive Alteplase for the above exclusions. -: Excluded and not eligible to receive Alteplase for other reasons (specify in comments): - Diagnosis of TIA: -: Patient presented with transient symptoms that are now resolved and no other neurologic findings are currently present. List symptoms in comments. -: Patient is NOT a candidate for tPA. -: ____(put name in comment) has been consulted for admission and continued evaluation of risk factor assessment. ED NIH Stroke Scale - NIH Stroke Scale When completed:: Protocol *: 1. NIH scale should be completed with appropriate accompanying assessment tools. *: 2. The NIH should reflect what the patient is capable of doing and should not be coached by the clinician. 1a. Level of Consciousness: 0=Alert;keenly responsive -: 1=Drowsy -: 2=Obtunded -: 3=Coma/unresponsive or reflex to noxious stimuli. 1a. Responses: 1 1b. Orientation Questions: a. What month is it? -: b. How old are you? -: 0=Answers both questions correctly. -: 1=Answers one question correctly or patient is intubated or has orotracheal trauma. -: 2=Answers neither question correctly. 1b. Responses: 2 1c. Response to commands: a. Open and close eyes? -: b. Inventory Management Specialist and release hand? -: Credit is given despite weakness. Demonstration of task is permitted. Substitute command if hands cannot be used. -: 0=Performs both tasks correctly -: 1=Performs one task correctly -: 2=Performs neither task correctly 1c. Responses: 1 2. Gaze: Establish eye contact and instruct patient to "Follow my finger" -: 0=Normal -: 1=Partial gaze palsy. Gaze is abnormal in one or both eyes, but where forced deviation or total gaze paresis is not present. -: 2=Forced deviation or total gaze paresis. 2. Responses: 1 3. Visual You: Sees fingers in all four quadrants. -: 0=No visual loss. -: 1=Partial hemianopsia. -: 2=Complete hemianopsia. -: 3=Bilateral hemianopsia (including Cortical blindness) 4. Facial Movement: Instruct patient to: -: a. Show me your teeth -: b. Raise your eyebrows -: c. Close your eyes -: d. Smile -: 0=Normal symmetrical movement -: 1=Minor paralysis (flattened nasolabial fold, asymmetry on smiling). -: 2=Partial paralysis (total or near total paralysis of lower face). -: 3=Complete paralysis of upper and lower face 4. Responses: 3 5. Motor functions (left arm): Alternate sides and extend each arm with palms down (90 degrees if sitting or 45 degrees for supine). -: 0=No drift;limb holds for full 10 seconds. -: 1=Drift; limb holds but drifts down before full 10 seconds, but does not hit bed. -: 2=Some effort against gravity; limb cannot get to or maintain position. -: 3=No effort against gravity; limb falls. -: 4=No movement. -: UN=Amputation, joint fusion, explain in comments. 5. Responses (left arm): 0 5. Motor Functions (right arm): Alternate sides and extend each arm with palms down (90 degrees if sitting or 45 degrees for supine). -: 0=No drift;limb holds for full 10 seconds. -: 1=Drift; limb holds but drifts down before full 10 seconds, but does not hit bed. -: 2=Some effort against gravity; limb cannot get to or maintain position. -: 3=No effort against gravity; limb falls. -: 4=No movement. -: UN=Amputation, joint fusion, explain in comments. 6. Motor Functions (left leg): With patient lying supine, alternate sides and extend each leg (30 degrees always while supine). -: 0=No drift, leg holds position for full 5 seconds -: 1=Drift; leg falls before full 5 seconds but does not hit bed. -: 2=Some effort against gravity, leg falls to bed but some effort against gravity. -: 3=No effort against gravity, leg falls to bed immediately. -: 4=No movement. -: UN=Amputation, joint fusion; explain in comments. 6. Responses (left leg): 0 6. Motor Functions (right leg): With patient lying supine, alternate sides and extend each leg (30 degrees always while supine). -: 0=No drift, leg holds position for full 5 seconds -: 1=Drift; leg falls before full 5 seconds but does not hit bed. -: 2=Some effort against gravity, leg falls to bed but some effort against gravity. -: 3=No effort against gravity, leg falls to bed immediately. -: 4=No movement. -: UN=Amputation, joint fusion; explain in comments. 6. Responses (right leg): 0 7. Limb Ataxia: With eyes open instruct patient to: -: a. "Touch your finger to your nose". -: b. "Touch your heel to your peterson" -: 0=Absent -: 1=Present in one limb. -: 2=Present in two limbs. -: UN=Amputation or joint fusion; explain in comments. 8. Sensory: Test sensation using pinprick or noxious stimuli. Test as many body parts as possible. -: 0=Normal;no sensory loss -: 1=Mile to moderate sensory loss (patient feels pin prick but is less sharp on affected side). -: 2=Severe or total sensory loss. 8. Responses: 1 9. Best Language: Instruct patient to: -: a. "Describe what you see in this picture." -: b. "Name the items in this picture." -: c. "Read these sentences." -: 0=No aphasia, normal -: 1=Mild to moderate aphasia. -: 2=Severe aphasia -: 3=Mute, global aphasia, no usable speech or auditory comprehension. 9. Responses: 3 10. Articulation, Dysarthia: Instruct patient to: -: "Read these words" or "Repeat these words" -: 0=Normal -: 1=Mild to moderate; patient may slur some words but can be understood without difficulty. -: 2=Severe; patients speech so slurred as to be unintelligible in the absence of dysphasia. -: UN=Intubated or other physical barrier, explain in comments. 10. Responses: 2 11. Extinction or inattention: 0=No abnormality -: 1= Visual, tactile, auditory, spatial, or personal inattention or extinction to bilateral simulation in one or the sensory modalities. -: 2=Profound gonzalez-inattention or gonzalez-inattention to more than one modality; does not recognize own hand. Total Score: 14 I personally performed the services described in the documentation, reviewed and edited the documentation which was dictated to the scribe in my presence, and it accurately records my words and actions.
[2018-08-21 05:38] VITALS: BP 189/104
--- NOTE | 2018-08-21 22:43 | EKG REPORT ---
SEVERITY:- ABNORMAL ECG - SINUS TACHYCARDIA VENTRICULAR PREMATURE COMPLEX LEFT BUNDLE BRANCH BLOCK : Confirmed by: Maeve Pitts MD 21-Aug-2018 22:42:36
== END 2018-08-21 05:38 | disposition short-term general hospital (02) ==
LOC: ER 02:25
DX: I21.4 Non-ST elevation (NSTEMI) myocardial infarction (principal); I63.89 Other cerebral infarction; N17.9 Acute kidney failure, unspecified; R29.810 Facial weakness; R47.01 Aphasia; M79.89 Other specified soft tissue disorders; I11.0 Hypertensive heart disease with heart failure; I50.9 Heart failure, unspecified
CPT/HCPCS: 93005; 99291; 96374; 36415; 82553; 82962; 80307; 82550; 85025; 85610; 85730; 80053; 84484; 83880; 71045; 70450; 70496; 70498; 93010; A9270; J1940; J3490

== ENCOUNTER → 2018-12-01 | Outpatient (CLI) | payer MEDICARE, OTHER ==
[2018-12-01 13:50] LABS: ABSOLUTE BASOPHILS # (AUTO) 0.1 10^3/uL (0.0-0.2); ABSOLUTE EOSINOPHILS # (AUTO) 0.4 10^3/uL (0.0-0.6); ABSOLUTE LYMPHOCYTES (AUTO) 1.6 10^3/uL (0.5-4.7); ABSOLUTE NEUT (AUTO) 3.8 10^3/uL (1.7-8.2); EOSINOPHILS % (AUTO) 5.3 % (0-6); HEMATOCRIT 36.7 % (37.9-51.0); HEMOGLOBIN 12.2 g/dL (13.5-17.0); LYMPHOCYTES % (AUTO) 23.2 % (13-45); MEAN CORPUSCULAR HEMOGLOBIN 28.8 pg (27.0-33.4); MEAN CORPUSCULAR HGB CONC 33.3 g/dL (32.0-36.0); MEAN CORPUSCULAR VOLUME 86 fl (80-97); MONOCYTES % (AUTO) 14.9 % (3-13); PLATELET COUNT 224 10^3/uL (150-450); RED BLOOD COUNT 4.24 10^6/uL (4.35-5.55); RED CELL DISTRIBUTION WIDTH 17.2 % (11.5-14.0); SEGMENTED NEUTROPHILS % (AUTO) 55.6 % (42-78); TOTAL CELLS COUNTED % (AUTO) 100 %; WHITE BLOOD COUNT 6.8 10^3/uL (4.0-10.5)
[2018-12-01 14:15] LABS: ALBUMIN 3.6 g/dL (3.5-5.0); ALKALINE PHOSPHATASE 155 U/L (38-126); ANION GAP 11 (5-19); ASPARTATE AMINO TRANSFERASE 19 U/L (17-59); BILIRUBIN,DIRECT 0.4 mg/dL (0.0-0.4); BILIRUBIN,TOTAL 0.6 mg/dL (0.2-1.3); BLOOD UREA NITROGEN 38 mg/dL (7-20); CALCIUM 9.7 mg/dL (8.4-10.2); CARBON DIOXIDE 20 mmol/L (22-30); CHLORIDE 108 mmol/L (98-107); CHOLESTEROL 157.95 mg/dL (0-200); GLUCOSE 81 mg/dL (75-110); TOTAL PROTEIN 7.5 g/dL (6.3-8.2); TRIGLYCERIDES 68 mg/dL (<150)
[2018-12-01 14:27] LABS: DIRECT LDL 73 mg/dL (<100)
== END ==
LOC: OD 12:41
PROVIDERS: ATTEND Family Medicine Geriatric Medicine
DX: I63.40 Cerebral infarction due to embolism of unspecified cerebral artery (principal); I25.10 Atherosclerotic heart disease of native coronary artery without angina pectoris; I10 Essential (primary) hypertension; Z79.899 Other long term (current) drug therapy
CPT/HCPCS: 36415; 80053; 80061; 85025

== ENCOUNTER 2018-12-19 19:03 | Inpatient (IN) | payer MEDICARE, OTHER ==
[2018-12-19] MEDS ORDERED: NALOXONE HCL INJ/PF 0.4 MG/1 ML SDV IV ONE (19:05)
[2018-12-19] MEDS ORDERED: ONDANSETRON HCL INJ/PF 4 MG/2 ML SDV IV ONE (19:05)
--- NOTE | 2018-12-19 19:26 | RADIOLOGY REPORT (SQ) ---
EXAM DESCRIPTION: CHEST SINGLE VIEW COMPLETED DATE/TIME: 12/19/2018 7:13 pm REASON FOR STUDY: bed 9 stoke alert COMPARISON: 08/21/2018 EXAM PARAMETERS: NUMBER OF VIEWS: One view. TECHNIQUE: Single frontal radiographic view of the chest acquired. RADIATION DOSE: NA LIMITATIONS: None. FINDINGS: LUNGS AND PLEURA: No opacities, masses or pneumothorax. No pleural effusion. MEDIASTINUM AND HILAR STRUCTURES: No masses. Contour normal. HEART AND VASCULAR STRUCTURES: Cardiomegaly. BONES: No acute findings. HARDWARE: None in the chest. OTHER: No other significant finding. IMPRESSION: Cardiomegaly without acute abnormality of the lungs. No focal airspace opacity. TECHNICAL DOCUMENTATION: JOB ID: [id number] [employer]- All Rights Reserved Reading location - IP/workstation name: [email or web address]
--- NOTE | 2018-12-19 19:39 | RADIOLOGY REPORT (SQ) ---
EXAM DESCRIPTION: CT HEAD WITHOUT COMPLETED DATE/TIME: 12/19/2018 7:10 pm REASON FOR STUDY: bed 9 stroke alert COMPARISON: CT head 08/21/2018 TECHNIQUE: Axial images acquired through the brain without intravenous contrast. Images reviewed wi th bone, brain and subdural windows. Images stored on PACS. All CT scanners at this facility use dose modulation, iterative reconstruction, and/or weight based d osing when appropriate to reduce radiation dose to as low as reasonably achievable (ALARA). [facility]: Dose Right [facility]: CareDose [facility]: Dose Right [facility]: Teradose 4D [facility]: Smart Kanga RADIATION DOSE: CT Rad equipment meets quality standard of care and radiation dose reduction techniq ues were employed. CTDIvol: 53.2 mGy. DLP: 991 mGy-cm.mGy. LIMITATIONS: None. FINDINGS: VENTRICLES: Prominent. CEREBRUM: No mass effect. No hemorrhage. No midline shift. Areas of low density in the white matte r most likely due to chronic micro-vascular ischemic change. There is a new area of low attenuation at the left frontoparietal region, not present on the prior CT head from 08/21/2018, may represent a s ubacute or chronic infarct. Otherwise, the lou-white matter differentiation is preserved. CEREBELLUM: No mass effect. No hemorrhage. No alteration of density. No evidence for acute infarct ion. EXTRAAXIAL SPACES: Age-related involutional change. No fluid collections. ORBITS AND GLOBE: Symmetrical contour of the globes. CALVARIUM: No fracture. PARANASAL SINUSES: No fluid or mucosal thickening. SOFT TISSUES: No hematoma. IMPRESSION: 1. New low-attenuation area at the left frontoparietal region, may represent a subacute / chronic infarct. No acute intracranial hemorrhage. If clinical concern persists for acute ischemi a, MRI can be obtained for further evaluation. 2. Cortical atrophy and chronic microvascular ischemic changes. EVIDENCE OF ACUTE STROKE: NO. COMMENT: Pertinent positive or negative findings of the imaging study reported as a CRITICAL EXAM jones Xavier RN, at19:25 hours on 12/19/2018. Category of Critical Exam: Stroke Alert TECHNICAL DOCUMENTATION: JOB ID: [id number] Quality ID # [id number]: Final reports with documentation of one or more dose reduction techniques (e.g., Au tomated exposure control, adjustment of the mA and/or kV according to patient size, use of iterative reconstruction technique) 2010 [employer]- All Rights Reserved Reading location - IP/workstation name: [email or web address]
[2018-12-19 19:42] LABS: INTERNATIONAL RATION (INR) 1.28
[2018-12-19 19:46] LABS: PARTIAL THROMBOPLASTIN TIME 31.5 SEC (23.5-35.8)
[2018-12-19 19:54] LABS: ABSOLUTE BASOPHILS # (AUTO) 0.1 10^3/uL (0.0-0.2); ABSOLUTE EOSINOPHILS # (AUTO) 0.1 10^3/uL (0.0-0.6); ABSOLUTE LYMPHOCYTES (AUTO) 1.1 10^3/uL (0.5-4.7); ABSOLUTE MONOCYTES (AUTO) 0.6 10^3/uL (0.1-1.4); ABSOLUTE NEUT (AUTO) 6.6 10^3/uL (1.7-8.2); BASOPHILS % (AUTO) 0.7 % (0-2); EOSINOPHILS % (AUTO) 0.9 % (0-6); HEMOGLOBIN 12.7 g/dL (13.5-17.0); LYMPHOCYTES % (AUTO) 12.6 % (13-45); MEAN CORPUSCULAR HGB CONC 31.9 g/dL (32.0-36.0); MEAN CORPUSCULAR VOLUME 88 fl (80-97); MONOCYTES % (AUTO) 7.1 % (3-13); PLATELET COUNT 190 10^3/uL (150-450); RED BLOOD COUNT 4.55 10^6/uL (4.35-5.55); SEGMENTED NEUTROPHILS % (AUTO) 78.7 % (42-78); TOTAL CELLS COUNTED % (AUTO) 100 %; WHITE BLOOD COUNT 8.4 10^3/uL (4.0-10.5)
[2018-12-19 19:55] LABS: ALBUMIN 3.9 g/dL (3.5-5.0); ALKALINE PHOSPHATASE 132 U/L (38-126); ANION GAP 15 (5-19); ASPARTATE AMINO TRANSFERASE 26 U/L (17-59); BILIRUBIN,DIRECT 0.3 mg/dL (0.0-0.4); BILIRUBIN,TOTAL 0.3 mg/dL (0.2-1.3); BLOOD UREA NITROGEN 27 mg/dL (7-20); CALCIUM 9.6 mg/dL (8.4-10.2); CARBON DIOXIDE 19 mmol/L (22-30); CHLORIDE 107 mmol/L (98-107); CREATINE KINASE 253 U/L (55-170); GLUCOSE 109 mg/dL (75-110); POTASSIUM 5.1 mmol/L (3.6-5.0); TOTAL PROTEIN 7.7 g/dL (6.3-8.2)
[2018-12-19 20:07] LABS: CREATINE KINASE MB 4.68 ng/mL (<4.55); TROPONIN I 0.028 ng/mL
--- NOTE | 2018-12-19 20:33 | ER Document Report ---
ED Neuro Symptoms/Deficit - General Chief Complaint: Altered Mental Status Stated Complaint: UNRESPONSIVE Time Seen by Provider: 12/19/18 19:04 Primary Care Provider: JACKI JOHNSON MD [Primary Care Provider] - Follow up as needed Cannot obtain history due to: Dementia, Altered mental status TRAVEL OUTSIDE OF THE [place] IN LAST 30 DAYS: No - Related Data Allergies/Adverse Reactions: lisinopril Allergy (Verified 03/09/18 09:47) Past Medical History - General Information source: Transfer Record Cannot obtain history due to: Mentally challenged - Social History Smoking Status: Unknown if Ever Smoked Family History: Reviewed & Not Pertinent Patient has suicidal ideation: No Patient has homicidal ideation: No - Past Medical History Cardiac Medical History: Reports: Hx Congestive Heart Failure, Hx Hypertension Denies: Hx Atrial Fibrillation, Hx Coronary Artery Disease, Hx Heart Attack, Hx Hypercholesterolemia, Hx Peripheral Vascular Disease, Hx Heart Murmur Pulmonary Medical History: Denies: Hx Asthma, Hx Bronchitis, Hx COPD, Hx Sleep Apnea Neurological Medical History: Denies: Hx Cerebrovascular Accident, Hx Seizures Endocrine Medical History: Denies: Hx Hyperthyroidism, Hx Hypothyroidism Renal/ Medical History: Denies: Hx Kidney Stones, Hx Peritoneal Dialysis GI Medical History: Denies: Hx Gastroesophageal Reflux Disease Musculoskeletal Medical History: Reports Hx Arthritis - hips, Denies Hx Fibromyalgia, Denies Hx Muscular Dystrophy Psychiatric Medical History: Denies: Hx Bipolar Disorder, Hx Depression, Hx Post Traumatic Stress Disorder Traumatic Medical History: Denies: Hx Fractures Past Surgical History: Denies: Hx Pacemaker Review of Systems - Review of Systems -: Yes ROS unobtainable due to patient's medical condition Physical Exam - Vital signs Vitals: Pulse Ox 75 L 12/19/18 19:06 Notes: PHYSICAL EXAMINATION: GENERAL: Well-appearing, well-nourished and in no acute distress. HEAD: Atraumatic, normocephalic. EYES: pupils pinpoint (no response with narcan), extraocular movements intact, sclera anicteric, conjunctiva are normal. ENT: nares patent, oropharynx clear without exudates. Moist mucous membranes. NECK: Normal range of motion, supple without lymphadenopathy LUNGS: Breath sounds clear to auscultation bilaterally and equal. No wheezes rales or rhonchi. HEART: Regular rate and rhythm without murmurs ABDOMEN: Soft, nontender, normoactive bowel sounds. No guarding, no rebound. No masses appreciated. EXTREMITIES: Normal range of motion, no pitting or edema. No cyanosis. NEUROLOGICAL: Patient is nonverbal apparently was before this old stroke noted on the right side right upper and lower extremity with some contracture is not following commands. PSYCH: Normal mood, normal affect. SKIN: Warm, Dry, normal turgor, no rashes or lesions noted. Course - Vital Signs Vital signs: Temp Pulse Resp BP Pulse Ox 98.1 F 109 H 23 H 171/107 H 97 12/19/18 19:38 12/19/18 19:38 12/19/18 19:38 12/19/18 19:38 12/19/18 19:38 - Laboratory Result Diagrams: 12/19/18 17:25 12/19/18 17:25 Laboratory results interpreted by me: 12/19/18 12/19/18 12/19/18 17:25 17:25 17:25 Hgb 12.7 L MCHC 31.9 L RDW 18.0 H Lymph % (Auto) 12.6 L Seg Neutrophils % 78.7 H PT 16.0 H Potassium 5.1 H Carbon Dioxide 19 L BUN 27 H Creatinine 2.60 H Est GFR ( Amer) 31 L Est GFR (MDRD) Non-Af 25 L Alkaline Phosphatase 132 H Creatine Kinase 253 H CK-MB (CK-2) 12/19/18 17:25 Hgb MCHC RDW Lymph % (Auto) Seg Neutrophils % PT Potassium Carbon Dioxide BUN Creatinine Est GFR ( Amer) Est GFR (MDRD) Non-Af Alkaline Phosphatase Creatine Kinase CK-MB (CK-2) 4.68 H - Transfer of Care Notes: 12/19/18 20:32 EKG shows sinus tachycardia with left bundle branch block unchanged from previous. CT did show a left frontoparietal subacute to acute infarct with chronic changes suggesting a CVA. Therefore he will be admitted to Dr. Anderson Discharge - Discharge Clinical Impression: CVA (cerebral vascular accident) Condition: Stable Disposition: ADMITTED INPATIENT Admitting Provider: Justin (Hospitalist) Unit Admitted: IMCU Referrals: JACKI JOHNSON MD [Primary Care Provider] - Follow up as needed
[2018-12-19] MEDS ORDERED: ONDANSETRON HCL INJ/PF 4 MG/2 ML SDV IV PRN (21:17)
[2018-12-19] MEDS ORDERED: LORAZEPAM INJ 2 MG/1 ML VIAL ONE (21:19)
[2018-12-19] MEDS ORDERED: CHLORPROMAZINE HCL INJ 25 MG/1 ML AMPULE IV PRN ×2 (21:26→22:30)
[2018-12-19] MEDS ORDERED: ACETAMINOPHEN 650 MG SUPP.RECT PR PRN (21:26)
[2018-12-19] MEDS ORDERED: METOPROLOL TARTRATE PF/INJ 5 MG/5 ML SDV IV PRN (21:26)
[2018-12-19] MEDS ORDERED: DIAZEPAM INJ 10 MG/2 ML DISP.SYRIN IV PRN (21:26)
[2018-12-19] MEDS ORDERED: LORAZEPAM INJ 2 MG/1 ML VIAL IV ONE (21:32)
[2018-12-19] MEDS ORDERED: LEVETIRACETAM 1000 MG/NACL-ISO 1,000 MG/100 ML RTUPB IV SCH (22:00)
[2018-12-19] MEDS ORDERED: LEVETIRACETAM 1500 MG/NACL-ISO 1,500 MG/100 ML RTUPB IV SCH (22:00)
[2018-12-19 22:19] LABS: FREE T3 3.94 pg/mL (2.77-5.27); FREE T4 (FREE THYROXINE) 0.93 ng/dL (0.78-2.19)
[2018-12-19] MEDS: PANTOPRAZOLE SODIUM 40 MG VIAL IV SCH (22:55)
[2018-12-19] MEDS: FAMOTIDINE INJ/PF 20 MG/2 ML SDV IV SCH (23:02)
[2018-12-19] MEDS ORDERED: NITROGLYCERIN 2.5 MG (0.1 MG/HR) PATCH.TD24 ONE (23:02)
[2018-12-19] MEDS: HEPARIN SOD (PORCINE) 5,000 UNIT/ML 1 ML VIAL SUBCUT SCH (23:03)
[2018-12-19] MEDS: DEXTROSE 5%-1/2 NORMAL SALINE 1,000 ML IV PRN (23:06)
[2018-12-19] MEDS: NITROGLYCERIN 2.5 MG (0.1 MG/HR) PATCH.TD24 TD SCH (23:07)
[2018-12-19] MEDS: HYDRALAZINE HCL INJ/PF 20 MG/1 ML SDV IV PRN (23:35)
[2018-12-19 23:44] LABS: CREATINE KINASE MB 4.92 ng/mL (<4.55); TROPONIN I 0.032 ng/mL
--- NOTE | 2018-12-20 04:33 | PDOC H&P ---
History of Present Illness Admission Date/PCP: 12/19/2018 20:40 JACKI JOHNSON MD Patient complains of: Altered mental status History of Present Illness: OLYA RACHEL is a 58 year old male who presented via EMS to the emergency room with a history that he had been last seen in his normal state at a about noon on the day of admission. On the evening of the day of admission the patient had been discovered unresponsive at his home and EMS was summoned. Patient was noted to have pinpoint pupils and be unresponsive to verbal and tactile stimuli, and only minimally responsive to painful stimuli. Patient was unaccompanied and is unable to provide any information due to his acute encephalopathy. In the emergency room the patient was noted to remain very poorly responsive to all but painful stimuli and a CT scan of the head demonstrated a new left frontoparietal area of infarction which was felt to be possibly subacute or chronic. Patient was subsequently admitted to the hospital for further evaluation and treatment per the stroke protocol. Past Medical History Past Medical History: Due to the patient's mental status all past medical history, past surgical history, social history and family history are obtained from the best available records and sources. Cardiac Medical History: Reports: Congestive Heart Failure, Hypertension Denies: Atrial Fibrillation, Coronary Artery Disease, Myocardial Infarction, Hyperlipidema, Peripheral Vascular Disease, Heart Murmur Pulmonary Medical History: Denies: Asthma, Bronchitis, Chronic Obstructive Pulmonary Disease (COPD), Sleep Apnea EENT Medical History: Denies: Cataracts, Ears - Hearing aids Neurological Medical History: Reports: Ischemic CVA Denies: Hemorrhagic CVA, Multiple Sclerosis, Seizures Endocrine Medical History: Denies: Diabetes Mellitus Type 1, Diabetes Mellitus Type 2, Hyperthyroidism, Hypothyroidism Renal/ Medical History: Reports: Chronic Kidney Disease Denies: Nephrolithiasis Malignancy Medical History: Reports: None GI Medical History: Denies: Cirrhosis, Crohn's Disease, Gastroesophageal Reflux Disease, Hepatitis, Peptic Ulcer Disease, Ulcerative Colitis Musculoskeltal Medical History: Reports: Arthritis - hips Denies: Fibromyalgia, Gout Skin Medical History: Denies: Eczema, Psoriasis Psychiatric Medical History: Denies: Alcohol Dependency, Bipolar Disorder, Depression, Post Traumatic Stress Disorder, Substance Abuse, Tobacco Dependency Traumatic Medical History: Reports: None Hematology: Denies: Anemia, Sickle Cell Disease, Bleeding Tendencies Infectious Medical History: Reports: None Past Surgical History Past Surgical History: Due to the patient's mental status all past medical history, past surgical history, social history and family history are obtained from the best available records and sources. Past Surgical History: Reports: Hip Replacement Social History Information Source: [facility] Records Lives with: Spouse/Significant other Smoking Status: Never Smoker Frequency of Alcohol Use: None Hx Recreational Drug Use: No Drugs: None Hx Prescription Drug Abuse: No Past Social History Note: Due to the patient's mental status all past medical history, past surgical his tory, social history and family history are obtained from the best available records and sources. - Advance Directive Resuscitation Status: Full Code Surrogate healthcare decision maker:: Jerry Rachel Family History Family History: Due to the patient's mental status all past medical history, past surgical history, social history and family history are obtained from the best available records and sources. Parental Family History Reviewed: No Children Family History Reviewed: No Sibling(s) Family History Reviewed.: No Medication/Allergy Home Medications: Aspirin [Aspirin 81 mg Chewable Tablet] 81 mg PO DAILY 02/26/18 Carvedilol Phosphate [Carvedilol ER] 20 mg PO DAILY 02/26/18 Furosemide [Lasix 40 mg Tablet] 40 mg PO DAILY 02/26/18 Hydralazine HCl [Apresoline 10 mg Tablet] 10 mg PO QID 02/26/18 Isosorbide Dinitrate [Isordil Titradose 10 mg Tablet] 20 mg PO BID 02/26/18 Spironolactone [Aldactone 25 mg Tablet] 25 mg PO DAILY 02/26/18 Allergies/Adverse Reactions: lisinopril Allergy (Verified 03/09/18 09:47) Review of Systems ROS unobtainable: Due to mental status Physical Exam Vital Signs: Temp Pulse Resp BP Pulse Ox 98.1 F 109 H 23 H 171/107 H 97 12/19/18 19:38 12/19/18 19:38 12/19/18 19:38 12/19/18 19:38 12/19/18 19:38 Intake & Output 12/17/18 12/18/18 12/19/18 23:59 23:59 23:59 Weight 58.6 kg General appearance: PRESENT: no acute distress, other - Nonresponsive to verbal and tactile stimuli Head exam: PRESENT: atraumatic, normocephalic Eye exam: PRESENT: conjunctiva pink, other - Pupils pinpoint constricted and fixed bilaterally. ABSENT: conjunctival injection, scleral icterus Ear exam: PRESENT: normal external ear exam. ABSENT: bleeding, drainage Mouth exam: PRESENT: dry mucosa, neck supple Neck exam: ABSENT: JVD, thyromegaly, tracheal deviation Respiratory exam: PRESENT: clear to auscultation ubaldo, symmetrical, unlabored Cardiovascular exam: PRESENT: RRR. ABSENT: clicks, gallop, rubs Pulses: PRESENT: normal radial pulses, normal dorsalis pedis pul Vascular exam: PRESENT: normal capillary refill. ABSENT: pallor GI/Abdominal exam: PRESENT: normal bowel sounds, soft Rectal exam: PRESENT: deferred Extremities exam: ABSENT: joint swelling, pedal edema Musculoskeletal exam: PRESENT: other - Severe paresis of right lower extremity, moderate to severe paresis of right upper extremity. ABSENT: deformity, dislocation Neurological exam: PRESENT: altered - Unresponsive to all but painful stimuli. ABSENT: alert, awake Psychiatric exam: ABSENT: other - Unable to assess due to severe unresponsive state Skin exam: PRESENT: dry, intact, warm. ABSENT: jaundice, rash, urticaria Results Laboratory Results: 12/19/18 17:25 12/19/18 17:25 12/19/18 12/19/18 17:25 17:25 WBC 8.4 RBC 4.55 Hgb 12.7 L Hct 40.0 MCV 88 MCH 28.0 MCHC 31.9 L RDW 18.0 H Plt Count 190 Seg Neutrophils % 78.7 H Sodium 141.2 Potassium 5.1 H Chloride 107 Carbon Dioxide 19 L Anion Gap 15 BUN 27 H Creatinine 2.60 H Est GFR ( Amer) 31 L Glucose 109 Calcium 9.6 Total Bilirubin 0.3 AST 26 Alkaline Phosphatase 132 H Total Protein 7.7 Albumin 3.9 12/19/18 12/19/18 17:25 17:25 Creatine Kinase 253 H CK-MB (CK-2) 4.68 H Troponin I 0.028 Impressions: Chest X-Ray 12/19/18 19:05 IMPRESSION: Cardiomegaly without acute abnormality of the lungs. No focal airspace opacity. Head CT 12/19/18 19:05 IMPRESSION: 1. New low-attenuation area at the left frontoparietal region, may represent a subacute/ chronic infarct. No acute intracranial hemorrhage. If clinical concern persists for acute ischemia, MRI can be obtained for further evaluation. 2. Cortical atrophy and chronic microvascular ischemic changes. EVIDENCE OF ACUTE STROKE: NO. Assessment and Plan - Diagnosis (1) CVA (cerebral vascular accident) Qualifiers: CVA mechanism: unspecified Qualified Code(s): I63.9 - Cerebral infarction, unspecified Is this a current diagnosis for this admission?: Yes Plan: Patient will be admitted to the stroke protocol on [facility]. MRI of the brain, carotid Doppler studies and an echocardiogram will be obtained. Patient will be observed closely and evaluated by physical therapy, occupational therapy and speech therapy. Patient will be on telemetry throughout his hospital course. Daily CBCs, metabolic profiles and magnesium levels will be followed. Keppra 1500 mg IV every 12 hours will be administered empirically for prevention of seizure activity. (2) Acute encephalopathy Is this a current diagnosis for this admission?: Yes Plan: Patient will be admitted to the stroke protocol on [facility]. MRI of the brain, carotid Doppler studies and an echocardiogram will be obtained. Patient will be observed closely and evaluated by physical therapy, occupational therapy and speech therapy. Patient will be on telemetry throughout his hospital course. Daily CBCs, metabolic profiles and magnesium levels will be followed. (3) Hypertension Qualifiers: Hypertension type: essential hypertension Qualified Code(s): I10 - Essential (primary) hypertension Is this a current diagnosis for this admission?: Yes Plan: Patient's hypertension will be treated with intravenous hydralazine 20 mg IV every 4 hours and or intravenous metoprolol 5 mg IV every 4 hours as needed to maintain a systolic blood pressure less than 160 and/or a diastolic blood pres sure less than 100. (4) Chronic kidney disease (CKD) Qualifiers: Chronic kidney disease stage: stage 3 (moderate) Qualified Code(s): N18.3 - Chronic kidney disease, stage 3 (moderate) Is this a current diagnosis for this admission?: Yes Plan: Patient's renal functions will be monitored closely throughout his hospital course with daily metabolic profiles. Medications will be selected appropriate for treatment with dosage adjustments and/or alternative therapies as required for his level of renal dysfunction. (5) Congestive heart failure Qualifiers: Heart failure type: unspecified Heart failure chronicity: chronic Qualified Code(s): I50.9 - Heart failure, unspecified Is this a current diagnosis for this admission?: Yes Plan: Patient will be observed closely for signs and symptoms of heart failure and best efforts will be made at continuing his usual heart failure therapy utilizing IV medications to substitute for his current medications. - Time Time Spent with patient: 25-34 minutes Medications reviewed and adjusted accordingly: Yes Anticipated discharge: SNF - Inpatient Certification Based on my medical assessment, after consideration of the patient's comorbidities, presenting symptoms, or acuity I expect that the services needed warrant INPATIENT care.: Yes I certify that my determination is in accordance with my understanding of Medicare's requirements for reasonable and necessary INPATIENT services [42 CFR 412.3e].: Yes Medical Necessity: Significant Comorbidiites Make Outpatient Treatment Too Risky, Need Close Monitoring Due to Risk of Patient Decompensation, Need For Continuous Telemetry Monitoring, Need for Neurological Checks, Risk of Complication if Not Cared For in Hospital, Risk of Diagnosis Which Will Require Inpatient Eval/Care/Monitoring
[2018-12-20 06:05] LABS: ABSOLUTE LYMPHOCYTES (AUTO) 1.5 10^3/uL (0.5-4.7); ABSOLUTE MONOCYTES (AUTO) 0.8 10^3/uL (0.1-1.4); ABSOLUTE NEUT (AUTO) 7.1 10^3/uL (1.7-8.2); BASOPHILS % (AUTO) 0.5 % (0-2); EOSINOPHILS % (AUTO) 0.1 % (0-6); HEMOGLOBIN 11.8 g/dL (13.5-17.0); LYMPHOCYTES % (AUTO) 16.3 % (13-45); MEAN CORPUSCULAR HEMOGLOBIN 28.4 pg (27.0-33.4); MEAN CORPUSCULAR HGB CONC 32.7 g/dL (32.0-36.0); MEAN CORPUSCULAR VOLUME 87 fl (80-97); MONOCYTES % (AUTO) 8.2 % (3-13); PLATELET COUNT 165 10^3/uL (150-450); RED BLOOD COUNT 4.14 10^6/uL (4.35-5.55); RED CELL DISTRIBUTION WIDTH 17.9 % (11.5-14.0); SEGMENTED NEUTROPHILS % (AUTO) 74.9 % (42-78); TOTAL CELLS COUNTED % (AUTO) 100 %; WHITE BLOOD COUNT 9.5 10^3/uL (4.0-10.5)
[2018-12-20] MEDS: HEPARIN SOD (PORCINE) 5,000 UNIT/ML 1 ML VIAL SUBCUT SCH ×3 (06:05→21:11)
[2018-12-20] MEDS: DEXTROSE 5%-1/2 NORMAL SALINE 1,000 ML IV PRN ×2 (06:06→17:10)
[2018-12-20 06:34] LABS: CREATINE KINASE MB 4.23 ng/mL (<4.55); TROPONIN I 0.048 ng/mL
[2018-12-20 06:36] LABS: ALBUMIN 3.6 g/dL (3.5-5.0); ALKALINE PHOSPHATASE 154 U/L (38-126); ANION GAP 13 (5-19); ASPARTATE AMINO TRANSFERASE 23 U/L (17-59); BILIRUBIN,DIRECT 0.4 mg/dL (0.0-0.4); BILIRUBIN,TOTAL 0.5 mg/dL (0.2-1.3); BLOOD UREA NITROGEN 28 mg/dL (7-20); CALCIUM 9.7 mg/dL (8.4-10.2); CARBON DIOXIDE 19 mmol/L (22-30); CHLORIDE 109 mmol/L (98-107); GLUCOSE 139 mg/dL (75-110); POTASSIUM 4.6 mmol/L (3.6-5.0); TOTAL PROTEIN 7.7 g/dL (6.3-8.2)
[2018-12-20] MEDS: BUMETANIDE INJ/PF 1 MG/4 ML SDV IV SCH (10:33)
[2018-12-20] MEDS: LEVETIRACETAM 1500 MG/NACL-ISO 1,500 MG/100 ML RTUPB IV SCH ×2 (10:33→21:10)
[2018-12-20] MEDS: FAMOTIDINE INJ/PF 20 MG/2 ML SDV IV SCH ×2 (10:33→21:11)
[2018-12-20] MEDS: PANTOPRAZOLE SODIUM 40 MG VIAL IV SCH ×2 (10:33→21:11)
--- NOTE | 2018-12-20 10:48 | Progress Note Acknowledgement ---
Progress Note Acknowledgement Progess Note Acknowledgement: I, the undersigned member of the medical staff with appropriate privileges and with supervisory authority over [ PAC ], a dependent practice allied health professional, acknowledge that I have reviewed the progress notes entered on this patient, and in my professional judgment believe that the assessment made and/or any care evidenced was appropriate
--- NOTE | 2018-12-20 11:01 | PDOC PROGRESS REPORT ---
Subjective Progress Note for:: 12/20/18 Subjective:: 12/20/2018 she was admitted to the emergency room last night because of altered mental status and what appears to be a new left hemisphere CVA. Patient is unable to give a history due to his CVA, but reviewing the chart shows that he may have had a cerebrovascular accident, ischemic, August 21, 2018 at that time he was seen in the emergency room were he was found to be from neurologic symptoms and was transferred to [facility]. Patient at that time had elevated troponins 0.687 elevated BNP of 23,000 altered mental status. 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 ABSENT: rales, rhonchi, wheezes Cardiovascular exam: PRESENT: RRR. ABSENT: diastolic murmur, rubs, systolic murmur Neurological exam: PRESENT: altered, other - Patient has what appears to be a contracture of the right upper extremity patient is unable to hold right upper extremity against gravity. Patient has some muscle tone to the left upper extremity but very minor. 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 strength in the left hand, but this appears to be a reflex as opposed to following commands Results Laboratory Results: 12/20/18 05:11 12/20/18 05:11 12/19/18 12/19/18 12/19/18 17:25 17:25 17:25 WBC 8.4 RBC 4.55 Hgb 12.7 L Hct 40.0 MCV 88 MCH 28.0 MCHC 31.9 L RDW 18.0 H Plt Count 190 Seg Neutrophils % 78.7 H Sodium 141.2 Potassium 5.1 H Chloride 107 Carbon Dioxide 19 L Anion Gap 15 BUN 27 H Creatinine 2.60 H Est GFR ( Amer) 31 L Glucose 109 Calcium 9.6 Total Bilirubin 0.3 AST 26 Alkaline Phosphatase 132 H Total Protein 7.7 Albumin 3.9 TSH Free T4 0.93 Free T3 pg/mL 3.94 12/20/18 12/20/18 12/20/18 05:11 05:11 05:11 WBC 9.5 RBC 4.14 L Hgb 11.8 L Hct 36.0 L MCV 87 MCH 28.4 MCHC 32.7 RDW 17.9 H Plt Count 165 Seg Neutrophils % 74.9 Sodium 140.7 Potassium 4.6 Chloride 109 H Carbon Dioxide 19 L Anion Gap 13 BUN 28 H Creatinine 2.42 H Est GFR ( Amer) 33 L Glucose 139 H Calcium 9.7 Total Bilirubin 0.5 AST 23 Alkaline Phosphatase 154 H Total Protein 7.7 Albumin 3.6 TSH 2.03 Free T4 Free T3 pg/mL 12/19/18 12/19/18 12/19/18 17:25 17:25 23:09 Creatine Kinase 253 H 283 H CK-MB (CK-2) 4.68 H Troponin I 0.028 12/19/18 12/20/18 12/20/18 23:09 05:11 05:11 Creatine Kinase 296 H CK-MB (CK-2) 4.92 H 4.23 Troponin I 0.032 0.048 Impressions: Chest X-Ray 12/19/18 19:05 IMPRESSION: Cardiomegaly without acute abnormality of the lungs. No focal airspace opacity. Head CT 12/19/18 19:05 IMPRESSION: 1. New low-attenuation area at the left frontoparietal region, may represent a subacute/ chronic infarct. No acute intracranial hemorrhage. If clinical concern persists for acute ischemia, MRI can be obtained for further evaluation. 2. Cortical atrophy and chronic microvascular ischemic changes. EVIDENCE OF ACUTE STROKE: NO. Assessment and Plan - Diagnosis (1) Altered mental status Is this a current diagnosis for this admission?: Yes Plan: 12/20/2018 patient is nonverbal and will not follow commands. Patient only moans when spoken to. Review of the chart shows that this may be baseline although there is mention that when EMS was called he was found to be unresponsive that may mean that he was responsive prior to that. It is noted that patient did have a stroke previously May of this year transferred to [facility]. Possibly has residual right-sided symptoms as well as status symptoms I have spoken to speech therapy and agree that patient should remain n.p.o. till increased level of consciousness (2) CVA (cerebral vascular accident) Qualifiers: CVA mechanism: unspecified Qualified Code(s): I63.9 - Cerebral infarction, unspecified Is this a current diagnosis for this admission?: Yes Plan: Patient will be admitted to the stroke protocol on [facility]. MRI of the brain, c arotid Doppler studies and an echocardiogram will be obtained. Patient will be observed closely and evaluated by physical therapy, occupational therapy and speech therapy. Patient will be on telemetry throughout his hospital course. Daily CBCs, metabolic profiles and magnesium levels will be followed. Keppra 1500 mg IV every 12 hours will be administered empirically for prevention of seizure activity. 12/20/2018 see work-up as above. Patient suffered a CVA August 21, 2018, appears to have suffered another one last night or yesterday. Previous CVA affected his right side, CT scan from last night shows possible new infarct left frontoparietal region (3) Chronic kidney disease (CKD) Qualifiers: Chronic kidney disease stage: stage 3 (moderate) Qualified Code(s): N18.3 - Chronic kidney disease, stage 3 (moderate) Is this a current diagnosis for this admission?: Yes (4) Hypertension Qualifiers: Hypertension type: essential hypertension Qualified Code(s): I10 - Essential (primary) hypertension Is this a current diagnosis for this admission?: Yes Plan: Patient's hypertension will be treated with intravenous hydralazine 20 mg IV every 4 hours and or intravenous metoprolol 5 mg IV every 4 hours as needed to maintain a systolic blood pressure less than 160 and/or a diastolic blood pressure less than 100. Pressure this morning 169/84. Blood pressure on admission was elevated 71/107 and last night when is high as 217/144. Patient currently on Lopressor IV with parameters PRN, Apresoline IV with parameters, Nitro-Dur patch 2.5 mg daily. Patient unable to safely take p.o.'s now - Time Time Spent with patient: 35 or more minutes - Very complicated patient due to being nonverbal
[2018-12-20 11:28] LABS: CREATINE KINASE MB 3.76 ng/mL (<4.55); TROPONIN I 0.046 ng/mL
[2018-12-20] MEDS: NITROGLYCERIN 2.5 MG (0.1 MG/HR) PATCH.TD24 TD SCH (12:30)
--- NOTE | 2018-12-20 13:47 | RADIOLOGY REPORT (SQ) ---
EXAM DESCRIPTION: MRI HEAD WITHOUT COMPLETED DATE/TIME: 12/20/2018 1:29 pm REASON FOR STUDY: CVA COMPARISON: None. TECHNIQUE: Multiplanar imaging includes non-contrasted T1, T2, FLAIR, and diffusion with ADC map seq uences. Images stored on PACS. LIMITATIONS: Patient movement. Unable to complete all sequences. FINDINGS: No evidence of acute infarct on diffusion weighted sequences. No obvious mass. No obviou s hemorrhage or extra-axial fluid collection. IMPRESSION: Technical limitations. No acute findings. EVIDENCE OF ACUTE STROKE: NO. TECHNICAL DOCUMENTATION: JOB ID: [id number] [employer]- All Rights Reserved Reading location - IP/workstation name: [email or web address]
[2018-12-20] MEDS: HYDRALAZINE HCL INJ/PF 20 MG/1 ML SDV IV PRN ×2 (17:10→21:11)
--- NOTE | 2018-12-20 18:52 | EKG REPORT ---
SEVERITY:- ABNORMAL ECG - SINUS TACHYCARDIA LEFT BUNDLE BRANCH BLOCK : Confirmed by: Carola Smith 20-Dec-2018 18:52:04
--- NOTE | 2018-12-20 18:52 | EKG REPORT ---
SEVERITY:- ABNORMAL ECG - SINUS TACHYCARDIA LEFT BUNDLE BRANCH BLOCK : Confirmed by: Carola Smith 20-Dec-2018 18:51:59
[2018-12-20 21:48] LABS: APPEARANCE,URINE CLEAR; BILIRUBIN,URINE NEGATIVE (NEGATIVE); COLOR,URINE STRAW; GLUCOSE, URINE NEGATIVE (NEGATIVE); KETONES,URINE NEGATIVE (NEGATIVE); LEUKOCYTE ESTERASE,URINE NEGATIVE (NEGATIVE); NITRITE,URINE NEGATIVE (NEGATIVE); PROTEIN,URINE NEGATIVE (NEGATIVE); URINE SPECIFIC GRAVITY 1.006; UROBILINOGEN,URINE NEGATIVE mg/dL (<2.0)
[2018-12-21] MEDS: DEXTROSE 5%-1/2 NORMAL SALINE 1,000 ML IV PRN ×2 (01:08→10:32)
[2018-12-21] MEDS: HYDRALAZINE HCL INJ/PF 20 MG/1 ML SDV IV PRN ×3 (04:28→20:16)
[2018-12-21] MEDS: HEPARIN SOD (PORCINE) 5,000 UNIT/ML 1 ML VIAL SUBCUT SCH ×3 (05:26→21:26)
[2018-12-21] MEDS: LEVETIRACETAM 1500 MG/NACL-ISO 1,500 MG/100 ML RTUPB IV SCH ×2 (10:33→21:26)
[2018-12-21] MEDS: BUMETANIDE INJ/PF 1 MG/4 ML SDV IV SCH (10:34)
[2018-12-21] MEDS: PANTOPRAZOLE SODIUM 40 MG VIAL IV SCH ×2 (10:34→21:26)
[2018-12-21] MEDS: NITROGLYCERIN 2.5 MG (0.1 MG/HR) PATCH.TD24 TD SCH (10:34)
[2018-12-21] MEDS: FAMOTIDINE INJ/PF 20 MG/2 ML SDV IV SCH ×2 (10:34→21:26)
[2018-12-21] MEDS ORDERED: METOPROLOL TARTRATE PF/INJ 5 MG/5 ML SDV IV PRN (12:45)
--- NOTE | 2018-12-21 12:49 | PDOC PROGRESS REPORT ---
Subjective Progress Note for:: 12/21/18 Subjective:: 12/20/2018 he was admitted to the emergency room last night because of altered mental status and what appears to be a new left hemisphere CVA. Patient is unable to give a history due to his CVA, but reviewing the chart shows that he may have had a cerebrovascular accident, ischemic, August 21, 2018 at that time he was seen in the emergency room were he was found to be from neurologic symptoms and was transferred to [facility]. Patient at that time had elevated troponins 0.687 elevated BNP of 23,000 altered mental status. 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 Family told the nurse yesterday that his last stroke several months for to clear he still has a right sided residual Reason For Visit: ACUTE CVA Physical Exam Vital Signs: Temp Pulse Resp BP Pulse Ox 97.9 F 106 H 18 200/107 H 93 12/21/18 04:01 12/21/18 08:00 12/21/18 08:00 12/21/18 08:00 12/21/18 08:00 Intake & Output 12/20/18 12/21/18 12/22/18 06:59 06:59 06:59 Intake Total 975 2196 1100 Output Total 1325 Balance 999 507 4178 Weight 63.5 kg 64 kg General appearance: PRESENT: mild distress, other - Patient has an expressive dysarthria, and to a mild degree active as well. He is able to name simple objects such as a pen or watch Respiratory exam: PRESENT: clear to auscultation ubaldo. ABSENT: rales, rhonchi, wheezes Cardiovascular exam: PRESENT: RRR. ABSENT: diastolic murmur, rubs, systolic murmur Neurological exam: PRESENT: altered, other - Dysarthric speech, weak in the rig ht upper extremity 2/5, left upper extremity we over 5 Results Laboratory Results: 12/20/18 05:11 12/20/18 05:11 12/20/18 21:15 Urine Color STRAW Urine Appearance CLEAR Urine pH 5.0 Ur Specific [place] 1.006 Urine Protein NEGATIVE Urine Glucose (UA) NEGATIVE Urine Ketones NEGATIVE Urine Blood NEGATIVE Urine Nitrite NEGATIVE Ur Leukocyte Esterase NEGATIVE Urine WBC (Auto) 1 Urine RBC (Auto) 1 12/19/18 12/19/18 12/19/18 17:25 17:25 23:09 Creatine Kinase 253 H 283 H CK-MB (CK-2) 4.68 H Troponin I 0.028 12/19/18 12/20/18 12/20/18 23:09 05:11 05:11 Creatine Kinase 296 H CK-MB (CK-2) 4.92 H 4.23 Troponin I 0.032 0.048 12/20/18 12/20/18 10:45 10:45 Creatine Kinase 289 H CK-MB (CK-2) 3.76 Troponin I 0.046 Impressions: Chest X-Ray 12/19/18 19:05 IMPRESSION: Cardiomegaly without acute abnormality of the lungs. No focal airspace opacity. Head CT 12/19/18 19:05 IMPRESSION: 1. New low-attenuation area at the left frontoparietal region, may represent a subacute/ chronic infarct. No acute intracranial hemorrhage. If clinical concern persists for acute ischemia, MRI can be obtained for further evaluation. 2. Cortical atrophy and chronic microvascular ischemic changes. EVIDENCE OF ACUTE STROKE: NO. Head MRI 12/20/18 00:00 IMPRESSION: Technical limitations. No acute findings. EVIDENCE OF ACUTE STROKE: NO. Assessment and Plan - Diagnosis (1) Altered mental status Is this a current diagnosis for this admission?: Yes Plan: 12/20/2018 patient is nonverbal and will not follow commands. Patient only moans when spoken to. Review of the chart shows that this may be baseline although there is mention that when EMS was called he was found to be unresponsive that may mean that he was responsive prior to that. It is noted that patient did have a stroke previously May of this year transferred to [facility]. Possibly has residual right-sided symptoms as well as status symptoms I have spoken to speech therapy and agree that patient should remain n.p.o. till increased level of consciousness 12/21/2018 patient is much more alert today, making contact and trying to communicate. (2) CVA (cerebral vascular accident) Qualifiers: CVA mechanism: unspecified Qualified Code(s): I63.9 - Cerebral infarction, unspecified Is this a current diagnosis for this admission?: Yes Plan: Patient will be admitted to the stroke protocol on [facility]. MRI of the brain, carotid Doppler studies and an echocardiogram will be obtained. Patient will be observed closely and evaluated by physical therapy, occupational therapy and speech therapy. Patient will be on telemetry throughout his hospital course. Daily CBCs, metabolic profiles and magnesium levels will be followed. Keppra 1500 mg IV every 12 hours will be administered empirically for prevention of seizure activity. 12/20/2018 see work-up as above. Patient suffered a CVA August 21, 2018, appears to have suffered another one last night or yesterday. Previous CVA affected his right side, CT scan from last night shows possible new infarct left frontoparietal region 12/21/2018 patient's old CVA involved the right side of his body, this new CVA evolves the left side of his body (3) Chronic kidney disease (CKD) Qualifiers: Chronic kidney disease stage: stage 3 (moderate) Qualified Code(s): N18.3 - Chronic kidney disease, stage 3 (moderate) Is this a current diagnosis for this admission?: Yes Plan: Patient's renal functions will be monitored closely throughout his hospital course with daily metabolic profiles. Medications will be selected appropriate for treatment with dosage adjustments and/or alternative therapies as required for his level of renal dysfunction. 12/21/2018 back in August patient's BUN was 43 creatinine 3.09, now his BUN is 28 and creatinine 2.42 we will add gentle hydration with IV fluids (4) Hypertension Qualifiers: Hypertension type: essential hypertension Qualified Code(s): I10 - Essential (primary) hypertension Is this a current diagnosis for this admission?: Yes Plan: Patient's hypertension will be treated with intravenous hydralazine 20 mg IV ev loida 4 hours and or intravenous metoprolol 5 mg IV every 4 hours as needed to maintain a systolic blood pressure less than 160 and/or a diastolic blood pressure less than 100. Pressure this morning 169/84. Blood pressure on admission was elevated 71/107 and last night when is high as 217/144. Patient currently on Lopressor IV with parameters PRN, Apresoline IV with parameters, Nitro-Dur patch 2.5 mg daily. Patient unable to safely take p.o.'s now 12/21/2018 patient's blood pressures yesterday were much better controlled however early this morning he once again had a spike. Early this morning pressure was 200/107. I am going to increase the metoprolol to 10mg IV 6 hours as needed - Time Time Spent with patient: 35 or more minutes
[2018-12-21] MEDS: NORMAL SALINE 1000 ML 1,000 ML IV PRN ×2 (14:38→23:56)
--- NOTE | 2018-12-21 16:13 | RADIOLOGY REPORT (SQ) ---
EXAM DESCRIPTION: CAROTID DOPPLER COMPLETED DATE/TIME: 12/21/2018 3:51 pm REASON FOR STUDY: cva COMPARISON: None. TECHNIQUE: Grayscale ultrasound, Doppler velocity and spectra, and color Doppler images acquired of the extra-cranial carotid and vertebral arteries. Images stored on PACS. LIMITATIONS: None. FINDINGS: RIGHT CAROTID CCA Velocities: Within normal limits. ICA Velocities Peak systolic 72 cm/s. End diastolic 28 cm/s. Proximal ICA/CCA peak systolic ratio 1.11. Spectra normal. No significant plaque. LEFT CAROTID CCA Velocities: Within normal limits. ICA Velocities Peak systolic 92 cm/s. End diastolic 30 cm/s. Proximal ICA/CCA peak systolic ratio 1.34. There is moderate plaque in the carotid bulb and proximal ICA. VERTEBRAL ARTERIES: Antegrade flow. Normal waveforms. SUBCLAVIAN ARTERIES: No finding. OTHER: No other significant finding. IMPRESSION: NO HEMODYNAMICALLY SIGNIFICANT STENOSIS. COMMENT: Quality ID #[id number]: Velocity criteria are extrapolated from the diameter data as defined by t he Society of Radiologists in Ultrasound Consensus Conference. Radiology 2003: 229; 340-346. TECHNICAL DOCUMENTATION: JOB ID: [id number] [employer]- All Rights Reserved Reading location - IP/workstation name: [email or web address]
[2018-12-22] MEDS: HYDRALAZINE HCL INJ/PF 20 MG/1 ML SDV IV PRN (04:00)
[2018-12-22] MEDS: HEPARIN SOD (PORCINE) 5,000 UNIT/ML 1 ML VIAL SUBCUT SCH (05:37)
[2018-12-22] MEDS: NORMAL SALINE 1000 ML 1,000 ML IV PRN ×3 (07:50→17:27)
[2018-12-22] MEDS ORDERED: ASPIRIN 300 MG SUPP, RECTAL PR SCH (10:00)
[2018-12-22] MEDS: PANTOPRAZOLE SODIUM 40 MG VIAL IV SCH ×2 (10:28→22:06)
[2018-12-22] MEDS: BUMETANIDE INJ/PF 1 MG/4 ML SDV IV SCH (10:28)
[2018-12-22] MEDS: ISOSORBIDE DINITRATE 20 MG TABLET PO SCH ×2 (10:28→22:06)
[2018-12-22] MEDS: APIXABAN 2.5 MG TABLET PO SCH ×2 (10:28→22:06)
[2018-12-22] MEDS: FAMOTIDINE INJ/PF 20 MG/2 ML SDV IV SCH ×2 (10:28→22:06)
[2018-12-22] MEDS: ASPIRIN 81 MG TABLET, CHEWABLE PO SCH (10:28)
[2018-12-22] MEDS: CARVEDILOL 12.5 MG TABLET PO SCH ×2 (10:28→22:06)
[2018-12-22] MEDS: PREDNISONE 10 MG TABLET PO SCH (10:28)
[2018-12-22] MEDS: NITROGLYCERIN 2.5 MG (0.1 MG/HR) PATCH.TD24 TD SCH (10:29)
[2018-12-22] MEDS: LEVETIRACETAM 1500 MG/NACL-ISO 1,500 MG/100 ML RTUPB IV SCH ×2 (10:29→22:07)
[2018-12-22] MEDS ORDERED: HYDRALAZINE HCL 10 MG TABLET PO SCH (12:00)
[2018-12-22] MEDS: HYDRALAZINE HCL 10 MG TABLET PO SCH ×2 (13:34→17:27)
--- NOTE | 2018-12-22 15:12 | PDOC PROGRESS REPORT ---
Subjective Progress Note for:: 12/22/18 Subjective:: The patient is a 58-year-old male with a past medical history of CHF, hypertension, CVA w/ residual Rt side weakness, CKD, arthritis who was admitted 12/19/2018 for stroke symptoms and found to have had a left frontoparietal subacute CVA. The patient was seen on morning rounds. He is found resting in bed comfortably on room air. He is awake and alert, socially appropriate, but difficult to have conversation with as he does not clearly answer questions. I was able to ascertain that he lives at home with family members and is not in any pain discomfort today. Otherwise was unable to clearly understand the patient's HPI or review ROS. ROS is limited secondary to mental status and slurred speech. Discussed with speech therapy and nursing today; patient is cleared for crushed meds with applesauce and ice chips; scheduled to have modified barium swallow study. Discharge planning is consulted for disposition; expect patient would benefit from SNF for short-term rehab. Reason For Visit: ACUTE CVA Physical Exam Vital Signs: Temp Pulse Resp BP Pulse Ox 99.4 F 120 H 18 179/114 H 93 12/22/18 10:35 12/22/18 10:35 12/22/18 10:35 12/22/18 10:35 12/22/18 10:35 Intake & Output 12/21/18 12/22/18 12/23/18 06:59 06:59 06:59 Intake Total 2196 3200 100 Output Total 1325 1125 Balance 871 2075 100 Weight 64 kg 63.3 kg General appearance: PRESENT: no acute distress, cooperative, thin, well- developed, well-nourished Head exam: PRESENT: atraumatic, normocephalic Eye exam: PRESENT: conjunctiva pink, EOMI, PERRLA. ABSENT: scleral icterus Ear exam: PRESENT: normal external ear exam Mouth exam: PRESENT: moist, tongue midline Neck exam: ABSENT: carotid bruit, JVD, lymphadenopathy, thyromegaly Respiratory exam: PRESENT: clear to auscultation ubaldo, symmetrical, unlabored. ABSENT: rales, rhonchi, wheezes Cardiovascular exam: PRESENT: RRR. ABSENT: diastolic murmur, rubs, systolic murmur Pulses: PRESENT: normal dorsalis pedis pul Vascular exam: PRESENT: normal capillary refill GI/Abdominal exam: PRESENT: normal bowel sounds, soft. ABSENT: distended, g uarding, mass, organolmegaly, rebound, tenderness Rectal exam: PRESENT: deferred Extremities exam: PRESENT: full ROM. ABSENT: calf tenderness, clubbing, pedal edema Neurological exam: PRESENT: alert, awake, oriented to person, CN II-XII grossly intact, other - Slurred speech; bilateral extremity weakness, left greater than right.. ABSENT: oriented to place, oriented to time, motor sensory deficit Psychiatric exam: PRESENT: appropriate affect, normal mood. ABSENT: homicidal ideation, suicidal ideation Skin exam: PRESENT: dry, intact, warm. ABSENT: cyanosis, rash Results Laboratory Results: 12/20/18 05:11 12/20/18 05:11 12/19/18 12/19/18 12/19/18 17:25 17:25 23:09 Creatine Kinase 253 H 283 H CK-MB (CK-2) 4.68 H Troponin I 0.028 12/19/18 12/20/18 12/20/18 23:09 05:11 05:11 Creatine Kinase 296 H CK-MB (CK-2) 4.92 H 4.23 Troponin I 0.032 0.048 12/20/18 12/20/18 10:45 10:45 Creatine Kinase 289 H CK-MB (CK-2) 3.76 Troponin I 0.046 Impressions: Chest X-Ray 12/19/18 19:05 IMPRESSION: Cardiomegaly without acute abnormality of the lungs. No focal airspace opacity. Head CT 12/19/18 19:05 IMPRESSION: 1. New low-attenuation area at the left frontoparietal region, may represent a subacute/ chronic infarct. No acute intracranial hemorrhage. If clinical concern persists for acute ischemia, MRI can be obtained for further evaluation. 2. Cortical atrophy and chronic microvascular ischemic changes. EVIDENCE OF ACUTE STROKE: NO. Head MRI 12/20/18 00:00 IMPRESSION: Technical limitations. No acute findings. EVIDENCE OF ACUTE STROKE: NO. Carotid Doppler Study 12/21/18 00:00 IMPRESSION: NO HEMODYNAMICALLY SIGNIFICANT STENOSIS. Assessment and Plan - Diagnosis (1) CVA (cerebral vascular accident) Qualifiers: CVA mechanism: unspecified Qualified Code(s): I63.9 - Cerebral infarction, unspecified Is this a current diagnosis for this admission?: Yes Plan: CT head reveals left frontoparietal subacute CVA MRI was nondiagnostic secondary to patient movement. Carotid Doppler is negative for hemodynamically significant stenosis. Echocardiogram is pending. No history of A. fib/PAF; patient may still benefit from ERMA can be arranged as an outpatient. Continue daily aspirin therapy. Have resumed home dose, renally dosed, Eliquis. Antihypertensives as below. We will check lipid panel and A1c with a.m. lab work. PT/OT/ST consultations obtained. Plan for modified barium swallow study tomorrow. Discharge planning is consulted for disposition; patient likely will benefit from short-term rehab. (2) Chronic kidney disease (CKD) Qualifiers: Chronic kidney disease stage: stage 3 (moderate) Qualified Code(s): N18.3 - Chronic kidney disease, stage 3 (moderate) Is this a current diagnosis for this admission?: Yes Plan: Stable; baseline creatinine appears to be 2.48. Creatinine on admission was 2.60, has trended down to 2.42. We will continue gentle IV fluids until patient is taking adequate p.o. intake. Avoid nephrotoxic medications as able. Daily chemistries. (3) Hypertension Qualifiers: Hypertension type: essential hypertension Qualified Code(s): I10 - Essent ial (primary) hypertension Is this a current diagnosis for this admission?: Yes Plan: Patient was allowed permissive hypertension. He is now cleared for oral medications, therefore, will resume his home dose Carvedilol, hydralazine, and isosorbide. We will continue IV Lopressor as needed for blood pressure control. Will follow blood pressure and consider resumption of home dose lisinopril/hydrochlorothiazide tomorrow. (4) Acute encephalopathy Is this a current diagnosis for this admission?: Yes Plan: Secondary to subacute CVA. Improving; patient is now alert and oriented to self. Likely oriented to situation and place, although difficult to tell due to expressive aphasia. He does follow simple commands. Supportive care. - Time Time Spent with patient: 25-34 minutes Medications reviewed and adjusted accordingly: Yes Anticipated discharge: SNF Within: within 48 hours
--- NOTE | 2018-12-22 15:13 | Progress Note Acknowledgement ---
Progress Note Acknowledgement Progess Note Acknowledgement: I, the undersigned member of the medical staff with appropriate privileges and with supervisory authority over Birgit Rouse, a [facility] practice allied health professional, acknowledge that I have reviewed the progress notes entered on this patient, and in my professional judgment believe that the assessment made and/or any care evidenced was appropriate
--- NOTE | 2018-12-22 22:21 | XCELERA REPORT ---
[address] [address] Transthoracic Echocardiogram Report Name: OLYA RACHEL Age: 58 yrs Gender: Male : 1960 Patient Status: Inpatient Patient Location: [address] [place] [address] Study Date: 12/21/2018 02:14 PM Procedure: A two-dimensional transthoracic echocardiogram with color flow and Doppler was performed. Study Quality: Fair. Reason For Study: cva History: CVA. Ordering Physician: MALAIKA MONTANA Performed By: Ashley Sterling Interpretation Summary There is no obvious cardiac source of embolus noted on this transthoracic echocardiogram. Follow-up with a ERMA is suggested if cardiac source is still suspected. The left ventricle is normal in size. There is normal left ventricular wall thickness. LV EF is 45% to 50.% Left ventricular systolic function is mild to moderately reduced. Doppler measurements suggest normal left ventricular diastolic function There is mild to moderate global hypokinesis of the left ventricle. There is no thrombus. No ASD ,VSD ,or PFO seen. The right ventricle is normal size. There is borderline right ventricular hypertrophy. The right ventricular systolic function is normal. The right atrium is normal. The left atrial size is normal. There is no evidence of mitral valve prolapse. There is no vegetation seen on the mitral valve. There is no mitral valve stenosis. There is a trace amount of mitral regurgitation There is no aortic valvular vegetation. There is no aortic valve stenosis No aortic regurgitation is present. There is no tricuspid stenosis. There is a trace amount of tricuspid regurgitation Unable to calculate RVSP due to insufficient TR jet. There is no pulmonic valvular stenosis. There is no pulmonic valvular regurgitation. The aortic root is normal size. The inferior vena cava appeared small and collapsed with respiration (RAP 0-5 mmHg) There is no pericardial effusion. There is no obvious cardiac source of embolus noted on this transthoracic echocardiogram. Follow-up with a ERMA is suggested if cardiac source is still suspected MMode/2D Measurements & Calculations RVDd: 3.5 cm LVIDd: 4.6 cm FS: 28.2 % Ao root diam: 2.9 cm IVSd: 1.0 cm LVIDs: 3.3 cm EDV(Teich): 99.6 ml Ao root area: 6.5 cm2 LVPWd: 1.5 cm ESV(Teich): 45.3 ml EF(Teich): 54.6 % Doppler Measurements & Calculations MV E max phi: MV dec slope: Ao V2 max: LV V1 max P.1 cm/sec 137.8 cm/sec 3.9 mmHg MV A max phi: 999.6 cm/sec2 Ao max PG: LV V1 max: 33.0 cm/sec MV dec time: 0.12 sec 7.6 mmHg 98.9 cm/sec MV E/A: 3.6 PA V2 max: Pulm Sys Phi: 99.5 cm/sec 41.0 cm/sec PA max P.0 mmHg Pulm Painting Phi: 50.8 cm/sec Pulm A Revs Phi: 24.1 cm/sec Pulm A Revs Dur: 0.11 sec Pulm S/D: 0.81 Left Ventricle The left ventricle is normal in size. There is normal left ventricular wall thickness. LV EF is 45% to 50.%. Left ventricular systolic function is mild to moderately reduced. Doppler measurements suggest normal left ventricular diastolic function. There is mild to moderate global hypokinesis of the left ventricle. There is no thrombus. No ASD ,VSD ,or PFO seen. Right Ventricle The right ventricle is normal size. There is borderline right ventricular hypertrophy. The right ventricular systolic function is normal. Atria The right atrium is normal. The left atrial size is normal. Mitral Valve There is no evidence of mitral valve prolapse. There is no vegetation seen on the mitral valve. There is no mitral valve stenosis. There is a trace amount of mitral regurgitation. Aortic Valve There is no aortic valvular vegetation. There is no aortic valve stenosis. No aortic regurgitation is present. Tricuspid Valve There is no tricuspid stenosis. There is a trace amount of tricuspid regurgitation. Unable to calculate RVSP due to insufficient TR jet. Pulmonic Valve There is no pulmonic valvular stenosis. There is no pulmonic valvular regurgitation. Great Vessels The aortic root is normal size. The inferior vena cava appeared small and collapsed with respiration (RAP 0-5 mmHg). Effusions There is no pericardial effusion. : MALAIKA MONTANA Lakshmi
[2018-12-23] MEDS: HYDRALAZINE HCL 10 MG TABLET PO SCH ×4 (00:29→17:12)
[2018-12-23] MEDS ORDERED: GLUCAGON,HUMAN RECOMB 1 MG INJ IM PRN (00:30)
[2018-12-23] MEDS ORDERED: DEXTROSE 50%-WATER SYRINGE 25 GM/50 ML DOSE IV PRN (00:30)
[2018-12-23] MEDS ORDERED: DEXTROSE 40% GEL 15 GM TUBE X 2 PO PRN (00:30)
[2018-12-23] MEDS ORDERED: DEXTROSE 40% GEL 15 GM TUBE PO PRN ×3 (00:30→15:55)
[2018-12-23] MEDS ORDERED: DEXTROSE 50%-WATER SYRINGE 12.5 GM/25 ML DOSE IV PRN (00:30)
[2018-12-23 06:55] LABS: HEMATOCRIT 33.4 % (37.9-51.0); MEAN CORPUSCULAR HEMOGLOBIN 28.5 pg (27.0-33.4); MEAN CORPUSCULAR HGB CONC 32.9 g/dL (32.0-36.0); MEAN CORPUSCULAR VOLUME 87 fl (80-97); PLATELET COUNT 152 10^3/uL (150-450); RED BLOOD COUNT 3.86 10^6/uL (4.35-5.55); RED CELL DISTRIBUTION WIDTH 17.6 % (11.5-14.0); WHITE BLOOD COUNT 9.4 10^3/uL (4.0-10.5)
[2018-12-23 07:12] LABS: ANION GAP 9 (5-19); BLOOD UREA NITROGEN 27 mg/dL (7-20); CARBON DIOXIDE 19 mmol/L (22-30); CHLORIDE 115 mmol/L (98-107); CHOLESTEROL 137.89 mg/dL (0-200); GLUCOSE 100 mg/dL (75-110); POTASSIUM 3.7 mmol/L (3.6-5.0); TRIGLYCERIDES 80 mg/dL (<150)
[2018-12-23 07:23] LABS: DIRECT LDL 65 mg/dL (<100)
[2018-12-23] MEDS: LEVETIRACETAM 1500 MG/NACL-ISO 1,500 MG/100 ML RTUPB IV SCH (09:45)
[2018-12-23] MEDS: BUMETANIDE INJ/PF 1 MG/4 ML SDV IV SCH (09:45)
[2018-12-23] MEDS: PANTOPRAZOLE SODIUM 40 MG VIAL IV SCH ×2 (09:45→22:55)
[2018-12-23] MEDS: CARVEDILOL 12.5 MG TABLET PO SCH ×2 (09:46→22:55)
[2018-12-23] MEDS: ISOSORBIDE DINITRATE 20 MG TABLET PO SCH ×2 (09:46→22:56)
[2018-12-23] MEDS: FAMOTIDINE INJ/PF 20 MG/2 ML SDV IV SCH ×2 (09:46→22:55)
[2018-12-23] MEDS: APIXABAN 2.5 MG TABLET PO SCH (09:47)
[2018-12-23] MEDS: ASPIRIN 81 MG TABLET, CHEWABLE PO SCH (09:47)
[2018-12-23] MEDS: PREDNISONE 10 MG TABLET PO SCH (09:47)
[2018-12-23] MEDS: HYDROCHLOROTHIAZIDE 12.5 MG TABLET PO SCH (09:47)
[2018-12-23] MEDS: LISINOPRIL 10 MG TABLET PO SCH (09:47)
--- NOTE | 2018-12-23 09:56 | RADIOLOGY REPORT (SQ) ---
EXAM DESCRIPTION: TAMAR SWALLOW COMPLETED DATE/TIME: 12/23/2018 9:10 am REASON FOR STUDY: diet recommendations after CVA history stroke COMPARISON: None. TECHNIQUE: Videofluoroscopic swallowing examination was performed in conjunction with speech patholo gy. Videofluoroscopic imaging was obtained and reviewed and these are the findings: RADIATION DOSE: Fluoro time 3.2 minutes 2 images saved to PACS. LIMITATIONS: None FINDINGS: The patient was brought into the fluoro room and placed upright on a modified barium swall ow chair. The patient was then given multiple consistencies mixed with barium to swallow under live fluoroscopic video guidance. According to the Speech Pathologist there was laryngeal penetration fro m residuals, with eventual tracheal aspiration seen. Please refer to the speech pathology report for further details. IMPRESSION: LARYNGEAL PENETRATION FROM RESIDUALS, WITH EVENTUAL TRACHEAL ASPIRATION IDENTIFIED. PLEA SE SEE SPEECH PATHOLOGIST REPORT FOR OTHER FINDINGS AND RECOMMENDATIONS. COMMENT: NONE Quality ID [id number]: Final reports for procedures using fluoroscopy that document radiation exposure cherie radha, or exposure time and number of fluorographic images (if radiation exposure indices are not avail able) TECHNICAL DOCUMENTATION: JOB ID: [id number] [employer]- All Rights Reserved Reading location - IP/workstation name: [email or web address]
[2018-12-23] MEDS ORDERED: (PENDING PHARMACY ID) (Lisinopril/Hydrochlorothiazide [Lisinopril-Hctz 20-12.5 Mg Tab] 1 T PO SCH (10:00)
[2018-12-23] MEDS: NITROGLYCERIN 2.5 MG (0.1 MG/HR) PATCH.TD24 TD SCH (10:00)
[2018-12-23] MEDS: NORMAL SALINE 1000 ML 1,000 ML IV PRN (11:34)
--- NOTE | 2018-12-23 12:47 | ST Inp Modified Barium Swallow ---
Medical Diagnosis - Medical Diagnoses Medical Diagnosis Description & ICD-10 Code(s): CVA - ICD-10 Tx Diagnosis Coding (1) Dysphagia ICD-10 Code(s): R13.10 - DYSPHAGIA, UNSPECIFIED ST Inpatient [facility] [place] - General Date: 12/23/18 Date of Onset: 12/19/18 - History -: Medical - per EMR: moncho admitted 12/19 with altered mental status. Patient was found unresponsive at his home, CT shows new left frontotemporal area of infarction. Patient has history of prior ischemic CVA. Patient was unable to participate with skilled assessment upon initial admission. He has more recently been participating with speech pathology for dysphagia treatment and PO trials. Medications: Medications Reviewed Allergies: Refer to medical record - Subjective Current Nutritional Means: IV Fluids Current PO Diet: N/A (NPO) - ice chips and meds crushed only Current Symptoms: Coughing, Hx of asp. pneumonia Pain: Patient reports, 0/5 - Objective Assessment: Upright, Left Lateral - Food Trials Food Trials Used: Thin liquids - by spoon, [place] thick liquids - by spoon, Pureed The Patient: fed by ST - Assessment Labial Function: Impaired - groping Mandibular Function: Impaired Dentition: Partial Laryngeal Function: weak voicing - Pharyngeal Stage Initiation of Pharyngeal Stage: Delayed - prolonged oral phase seen, swallow triggered at level of pyriform sinus Decreased Laryngeal Elevation: Yes Reduced Velo-Pharyngeal Closure: no Reduced Pressure Generation: Yes Reduced Tongue Base Retraction: Yes Pre-Swallowing Pooling in Valleculae: Significant Pre-Swallowing Pooling in Pyriforms: Moderate Reduced Thyro-Hyiod Approximation: Yes Reduced Epiglottic Excursion: Yes Reduced Pharyngeal Peristalsis: Yes Multiple Swallows With: Ineffective Clearance Post Swallow Residuals in Valleculae: Moderate Post Swallow Residuals in Pyriforms: Moderate Post Swallow Residuals: throughout pharynx Pahryngeal Stage Comments: Patient demonstrated overall weak and discoordinated swallowing skills. Patient also had a very hard time following any verbal cues or strategies from the therapist, some perseveration on directions seen (patient continued to open mouth when therapist asked him to close his lips. Penetration seen on pudding trial and spoon trial of nectar liquid. Patient was unable to clear pharyngeal residue, and residue was also penetrated. This was eventually aspirated without a cough reflex seen. - Impression/Summary Laryngeal Penetration: Yes Tracheal Aspiration: yes Ineffective Compensatory Strategies: throat clear & reswallow - patient had difficulty following directions, hard swallow Patient Presents With: Oral stage dysphagia, Pharyngeal stage dysph., Severe Risk of Aspiration: Severe Risk of Nutritional Compromise: Severe - Recommendations NPO: yes, therapeutic trials Strict Aspitarion Precautions: Yes Dysphagia Therapy with WORKERS COMPENSATION ATTORNEY: Yes Recommended Techniques: Fully Upright During Meal Other Recommendations: Recommend alternative means of nutrition/hydration. Patient may continue to have ice chip trials and medications crushed in apple sauce as needed, general aspiration precautions should be observed. Continued dysphagia treatment is indicated. - Time Total Time: 30 Total Timed Minutes: 30
[2018-12-23] MEDS ORDERED: NORMAL SALINE 1000 ML 1,000 ML IV PRN (13:32)
--- NOTE | 2018-12-23 13:42 | PDOC PROGRESS REPORT ---
Subjective Progress Note for:: 12/23/18 Subjective:: The patient is a 58-year-old male with a past medical history of CHF, hypertension, CVA w/ residual Rt side weakness, CKD, arthritis who was admitted 12/19/2018 for stroke symptoms and found to have had a left frontoparietal subacute CVA. The patient was seen on morning rounds with his present. He is found resting in bed comfortably on room air. He is awake and alert, socially appropriate, but difficult to have conversation with as he does not clearly answer questions. His tells me that the patient has slurred speech at baseline, is generally very difficult to understand. She also reports that the patient had a PEG tube up until about 1 month ago related to dysphasia from his prior CVA. Unfortunately, the patient did fail his modified barium swallow study this morning with evidence of aspiration/penetration. Discussed with patient's option for nutrition; she requests to have surgery evaluate for replacing PEG tube. ROS is limited secondary to patient's mental status and difficulty communicating. He does appear to be comfortable and not in any acute distress at this time. No concerns per . No concerns per nursing. Reason For Visit: ACUTE CVA Physical Exam Vital Signs: Temp Pulse Resp BP Pulse Ox 98.0 F 96 16 159/84 H 95 12/23/18 03:28 12/23/18 07:00 12/23/18 03:28 12/23/18 03:28 12/23/18 03:28 Intake & Output 12/22/18 12/23/18 12/24/18 06:59 06:59 06:59 Intake Total 3200 2075 100 Output Total 1125 1175 Balance 2075 900 100 Weight 63.3 kg 63.9 kg General appearance: PRESENT: no acute distress, cooperative, thin, well- developed, well-nourished Head exam: PRESENT: atraumatic, normocephalic Eye exam: PRESENT: conjunctival injection - Left upper lid stye; slight drainage, conjunctiva pink, EOMI, PERRLA. ABSENT: scleral icterus Ear exam: PRESENT: normal external ear exam Mouth exam: PRESENT: moist, tongue midline Teeth exam: PRESENT: poor dentation Neck exam: ABSENT: carotid bruit, JVD, lymphadenopathy, thyromegaly Respiratory exam: PRESENT: clear to auscultation ubaldo, symmetrical, unlabored. ABSENT: rales, rhonchi, wheezes Cardiovascular exam: PRESENT: RRR, +S1, +S2. ABSENT: diastolic murmur, rubs, systolic murmur Pulses: PRESENT: normal dorsalis pedis pul Vascular exam: PRESENT: normal capillary refill GI/Abdominal exam: PRESENT: normal bowel sounds, soft. ABSENT: distended, guarding, mass, organolmegaly, rebound, tenderness Rectal exam: PRESENT: deferred Extremities exam: PRESENT: full ROM - Moves all extremities spontaneously. ABSENT: calf tenderness, clubbing, pedal edema Neurological exam: PRESENT: alert, awake, oriented to person, oriented to place, CN II-XII grossly intact, other - Slurred speech; bilateral extremity weakness, left greater than right. ABSENT: motor sensory deficit Psychiatric exam: PRESENT: appropriate affect, normal mood. ABSENT: homicidal ideation, suicidal ideation Skin exam: PRESENT: dry, intact, warm. ABSENT: cyanosis, rash Results Laboratory Results: 12/23/18 06:17 12/23/18 06:17 12/23/18 12/23/18 06:17 06:17 WBC 9.4 RBC 3.86 L Hgb 11.0 L Hct 33.4 L MCV 87 MCH 28.5 MCHC 32.9 RDW 17.6 H Plt Count 152 Sodium 142.8 Potassium 3.7 Chloride 115 H Carbon Dioxide 19 L Anion Gap 9 BUN 27 H Creatinine 2.76 H Est GFR ( Amer) 29 L Glucose 100 Calcium 9.0 Triglycerides 80 Cholesterol 137.89 LDL Cholesterol Direct 65 VLDL Cholesterol 16.0 HDL Cholesterol 47 12/19/18 12/19/18 12/19/18 17:25 17:25 23:09 Creatine Kinase 253 H 283 H CK-MB (CK-2) 4.68 H Troponin I 0.028 12/19/18 12/20/18 12/20/18 23:09 05:11 05:11 Creatine Kinase 296 H CK-MB (CK-2) 4.92 H 4.23 Troponin I 0.032 0.048 12/20/18 12/20/18 10:45 10:45 Creatine Kinase 289 H CK-MB (CK-2) 3.76 Troponin I 0.046 Impressions: Chest X-Ray 12/19/18 19:05 IMPRESSION: Cardiomegaly without acute abnormality of the lungs. No focal airspace opacity. Head CT 12/19/18 19:05 IMPRESSION: 1. New low-attenuation area at the left frontoparietal region, may represent a subacute/ chronic infarct. No acute intracranial hemorrhage. If clinical concern persists for acute ischemia, MRI can be obtained for further evaluation. 2. Cortical atrophy and chronic microvascular ischemic changes. EVIDENCE OF ACUTE STROKE: NO. Head MRI 12/20/18 00:00 IMPRESSION: Technical limitations. No acute findings. EVIDENCE OF ACUTE STROKE: NO. Carotid Doppler Study 12/21/18 00:00 IMPRESSION: NO HEMODYNAMICALLY SIGNIFICANT STENOSIS. Modified Barium Swallow 12/23/18 00:00 IMPRESSION: LARYNGEAL PENETRATION FROM RESIDUALS, WITH EVENTUAL TRACHEAL ASPIRATION IDENTIFIED. PLEASE SEE SPEECH PATHOLOGIST REPORT FOR OTHER FINDINGS AND RECOMMENDATIONS. Assessment and Plan - Diagnosis (1) CVA (cerebral vascular accident) Qualifiers: CVA mechanism: unspecified Qualified Code(s): I63.9 - Cerebral infarction, unspecified Is this a current diagnosis for this admission?: Yes Plan: CT head reveals left frontoparietal subacute CVA MRI was nondiagnostic secondary to patient movement. Carotid Doppler is negative for hemodynamically significant stenosis. Echocardiogram Demonstrated LVEF 45 to 50% with mild to moderate global hypokinesis of the left ventricle and mild to moderately reduced systolic function. There is no obvious cardiac source of embolus noted on TTE. Lipid panel and A1c are acceptable. No history of A. fib/PAF; patient may still benefit from ERMA can be arranged as an outpatient. Continue daily aspirin therapy. Continue home dose, renally dosed, Eliquis. Antihypertensives as below; blood pressure is improved today. Failed MBSS; requesting PEG tube placement. Will consult surgery. PT/OT/ST consultations obtained. Discharge planning is consulted for disposition; patient likely will benefit from short-term rehab. (2) Chronic kidney disease (CKD) Qualifiers: Chronic kidney disease stage: stage 3 (moderate) Qualified Code(s): N18.3 - Chronic kidney disease, stage 3 (moderate) Is this a current diagnosis for this admission?: Yes Plan: Stable; baseline creatinine appears to be 2.48. We will continue gentle IV fluids until patient is taking adequate p.o. intake. Avoid nephrotoxic medications as able. Daily chemistries. (3) Hypertension Qualifiers: Hypertension type: essential hypertension Qualified Code(s): I10 - Essential (primary) hypertension Is this a current diagnosis for this admission?: Yes Plan: Improved; 159/84 today Patient was allowed permissive hypertension. Continue home dose Carvedilol, hydralazine, and isosorbide. Have resumed home dose lisinopril/hydrochlorothiazide We will continue IV Lopressor as needed for blood pressure control. (4) Acute encephalopathy Is this a current diagnosis for this admission?: Yes Plan: Secondary to subacute CVA. Improving; patient is now alert and oriented to self. Likely oriented to situation and place, although difficult to tell due to expressive aphasia. The patient's confirms that he had intermittent confusion and expressive aphasia prior to current CVA related to prior CVA. He does follow simple commands. Supportive care. (5) Dysphagia Is this a current diagnosis for this admission?: Yes Plan: Patient failed modified barium swallow study with evidence of aspiration/penetration. Speech therapy has cleared the patient for crushed meds with applesauce and ice chips. Strict aspiration precautions. Discussed with the patient's ; she does request evaluation for PEG tube placement. Will consult surgery. - Time Time Spent with patient: 25-34 minutes Medications reviewed and adjusted accordingly: Yes Anticipated discharge: SNF Within: within 72 hours - pending PEG placement
[2018-12-23] MEDS ORDERED: GLUCAGON,HUMAN RECOMB 1 MG INJ SUBCUT PRN (15:55)
[2018-12-23] MEDS ORDERED: DEXTROSE 50%-WATER 25 GM/50 ML DISP.SYRIN IV PRN ×2 (15:55)
[2018-12-23] MEDS: ERYTHROMYCIN 0.5% OPH OINTMENT 3.5 GM TUBE OU SCH (17:13)
[2018-12-24] MEDS: ERYTHROMYCIN 0.5% OPH OINTMENT 3.5 GM TUBE OU SCH ×4 (00:55→17:49)
[2018-12-24] MEDS: HYDRALAZINE HCL 10 MG TABLET PO SCH ×4 (00:56→17:49)
--- NOTE | 2018-12-24 01:17 | PDOC CONSULTATION ---
Consultation Consult Date: 12/24/18 Attending physician:: MARIE RODRIGEZ Provider Consulted: WILMAN CHASE Consult reason:: cva. need for parenteral nutrition History of Present Illness Admission Date/PCP: 12/19/18 20:46 JACKI JOHNSON MD History of Present Illness: OLYA RACHEL is a 58 year old male The patient is a 58-year-old male with a past medical history of CHF, hypertension, CVA w/ residual Rt side weakness, CKD, arthritis who was admitted 12/19/2018 for stroke symptoms and found to have had a left frontoparietal subacute CVA. The patient was seen on morning rounds with his present. He is found resting in bed comfortably on room air. He is awake and alert, socially appropriate, but difficult to have conversation with as he does not clearly answer questions. His tells me that the patient has slurred speech at baseline, is generally very difficult to understand. She also reports that the patient had a PEG tube up until about 1 month ago related to dysphasia from his prior CVA. Unfortunately, the patient did fail his modified barium swallow study this morning with evidence of aspiration/penetration. Discussed with patient's option for nutrition; she requests to have surgery evaluate for replacing PEG tube. Past Medical History Cardiac Medical History: Reports: Congestive Heart Failure, Hypertension Denies: Atrial Fibrillation, Coronary Artery Disease, Myocardial Infarction, Hyperlipidema, Peripheral Vascular Disease, Heart Murmur Pulmonary Medical History: Denies: Asthma, Bronchitis, Chronic Obstructive Pulmonary Disease (COPD), Sleep Apnea EENT Medical History: Denies: Cataracts, Ears - Hearing aids Neurological Medical History: Reports: Ischemic CVA Denies: Hemorrhagic CVA, Multiple Sclerosis, Seizures Endocrine Medical History: Denies: Diabetes Mellitus Type 1, Diabetes Mellitus Type 2, Hyperthyroidism, Hypothyroidism Renal/ Medical History: Reports: Chronic Kidney Disease Denies: Nephrolithiasis Malignancy Medical History: Reports: None GI Medical History: Denies: Cirrhosis, Crohn's Disease, Gastroesophageal Reflux Disease, Hepatitis, Peptic Ulcer Disease, Ulcerative Colitis Musculoskeltal Medical History: Reports: Arthritis - hips Denies: Fibromyalgia, Gout Skin Medical History: Denies: Eczema, Psoriasis Psychiatric Medical History: Denies: Alcohol Dependency, Bipolar Disorder, Depression, Post Traumatic Stress Disorder, Substance Abuse, Tobacco Dependency Traumatic Medical History: Reports: None Hematology: Denies: Anemia, Sickle Cell Disease, Bleeding Tendencies Infectious Medical History: Reports: None Past Surgical History Past Surgical History: Reports: Hip Replacement Denies: Pacemaker Social History Lives with: Spouse/Significant other Smoking Status: Never Smoker Frequency of Alcohol Use: None Hx Recreational Drug Use: No Drugs: None Hx Prescription Drug Abuse: No - Advance Directive Resuscitation Status: Full Code Family History Family History: Reviewed & Not Pertinent Parental Family History Reviewed: No Children Family History Reviewed: NA Sibling(s) Family History Reviewed.: NA Medication/Allergy Home Medications: Amino Acids/Protein Hydrolys [Pro-Stat Awc Liquid Packet] 30 ml PO DAILY 12/20/18 Apixaban [Eliquis 2.5 mg Tablet] 2.5 mg PO Q12 12/20/18 Aspirin [Aspirin 81 mg Chewable Tablet] 81 mg PO DAILY 12/20/18 Baclofen [Baclofen 10 mg Tablet] 5 mg PO Q8 12/20/18 Carvedilol [Coreg 25 mg Tablet] 25 mg PO Q12 12/20/18 Docusate Sodium [Colace 100 mg Capsule] 100 mg PO QPM 12/20/18 Ferrous Sulfate [Feosol 325 mg Tablet] 325 mg PO DAILY 12/20/18 Hydralazine HCl [Apresoline 10 mg Tablet] 10 mg PO Q6 12/20/18 Isosorbide Dinitrate [Isordil Titradose 20 mg Tablet] 40 mg PO Q12 12/20/18 Lisinopril/Hydrochlorothiazide [Lisinopril-Hctz 20-12.5 mg Tab] 1 tab PO DAILY 12/20/18 Prednisone [Deltasone 10 mg Tablet] 10 mg PO DAILY 12/20/18 Allergies/Adverse Reactions: lisinopril Allergy (Verified 03/09/18 09:47) Review of Systems ROS unobtainable: Due to endotracheal tube - ROS is limited secondary to patient's mental status and difficulty communicating. He does appear to be comfortable and not in any acute distress at this time. No concerns per . No concerns per nursing. Eyes: ABSENT: visual disturbances Breasts: ABSENT: as per HPI, other Cardiovascular: ABSENT: as per HPI, chest pain, dyspnea on exertion, edema, orthropnea, palpitations, other Respiratory: ABSENT: cough, hemoptysis Genitourinary: ABSENT: dysuria, hematuria Integumentary: ABSENT: rash, wounds Neurological: ABSENT: abnormal gait, abnormal speech, confusion, dizziness, focal weakness, syncope Psychiatric: ABSENT: anxiety, depression, homidical ideation, suicidal ideation Endocrine: ABSENT: cold intolerance, heat intolerance, polydipsia, polyuria Hematologic/Lymphatic: ABSENT: easy bleeding, easy bruising Physical Exam Vital Signs: Temp Pulse Resp BP Pulse Ox 97.8 F 89 16 132/84 H 94 12/24/18 00:51 12/24/18 00:51 12/24/18 00:51 12/24/18 00:51 12/24/18 00:51 Intake & Output 12/22/18 12/23/18 12/24/18 06:59 06:59 06:59 Intake Total 3200 2075 100 Output Total 1125 1175 Balance 2075 900 100 Weight 63.3 kg 63.9 kg General appearance: PRESENT: no acute distress Head exam: PRESENT: atraumatic Eye exam: PRESENT: EOMI Ear exam: PRESENT: normal external ear exam Mouth exam: PRESENT: dry mucosa Neck exam: PRESENT: full ROM Respiratory exam: PRESENT: clear to auscultation ubaldo Cardiovascular exam: PRESENT: RRR Pulses: PRESENT: normal radial pulses, normal femoral pulses Vascular exam: PRESENT: normal capillary refill GI/Abdominal exam: PRESENT: soft Rectal exam: PRESENT: deferred Extremities exam: PRESENT: full ROM Musculoskeletal exam: PRESENT: full ROM Neurological exam: PRESENT: aphasic, other - rt sided weakness, slurred speech Skin exam: PRESENT: dry Results Laboratory Results: 12/23/18 06:17 12/23/18 06:17 12/23/18 12/23/18 06:17 06:17 WBC 9.4 RBC 3.86 L Hgb 11.0 L Hct 33.4 L MCV 87 MCH 28.5 MCHC 32.9 RDW 17.6 H Plt Count 152 Sodium 142.8 Potassium 3.7 Chloride 115 H Carbon Dioxide 19 L Anion Gap 9 BUN 27 H Creatinine 2.76 H Est GFR ( Amer) 29 L Glucose 100 Calcium 9.0 Triglycerides 80 Cholesterol 137.89 LDL Cholesterol Direct 65 VLDL Cholesterol 16.0 HDL Cholesterol 47 12/19/18 12/19/18 12/19/18 17:25 17:25 23:09 Creatine Kinase 253 H 283 H CK-MB (CK-2) 4.68 H Troponin I 0.028 09/10/3012/20/18 12/20/18 23:09 05:11 05:11 Creatine Kinase 296 H CK-MB (CK-2) 4.92 H 4.23 Troponin I 0.032 0.048 12/20/18 12/20/18 10:45 10:45 Creatine Kinase 289 H CK-MB (CK-2) 3.76 Troponin I 0.046 Impressions: Chest X-Ray 12/19/18 19:05 IMPRESSION: Cardiomegaly without acute abnormality of the lungs. No focal airspace opacity. Head CT 12/19/18 19:05 IMPRESSION: 1. New low-attenuation area at the left frontoparietal region, may represent a subacute/ chronic infarct. No acute intracranial hemorrhage. If clinical concern persists for acute ischemia, MRI can be obtained for further evaluation. 2. Cortical atrophy and chronic microvascular ischemic changes. EVIDENCE OF ACUTE STROKE: NO. Head MRI 12/20/18 00:00 IMPRESSION: Technical limitations. No acute findings. EVIDENCE OF ACUTE STROKE: NO. Carotid Doppler Study 12/21/18 00:00 IMPRESSION: NO HEMODYNAMICALLY SIGNIFICANT STENOSIS. Modified Barium Swallow 12/23/18 00:00 IMPRESSION: LARYNGEAL PENETRATION FROM RESIDUALS, WITH EVENTUAL TRACHEAL ASPIRATION IDENTIFIED. PLEASE SEE SPEECH PATHOLOGIST REPORT FOR OTHER FINDINGS AND RECOMMENDATIONS. Assessment & Plan - Diagnosis (1) CVA (cerebral vascular accident) Qualifiers: CVA mechanism: unspecified Qualified Code(s): I63.9 - Cerebral infarction, unspecified Is this a current diagnosis for this admission?: Yes - Plan Summary Plan Summary: percutaneous endoscopic gastrostomy tube placemnt for enteral feeds seconday to chronic aspiration risks and benifts of bleeding, infection, perforation, discussed with who agrees with plan
[2018-12-24 05:07] LABS: HEMATOCRIT 34.4 % (37.9-51.0); HEMOGLOBIN 11.3 g/dL (13.5-17.0); MEAN CORPUSCULAR HEMOGLOBIN 28.6 pg (27.0-33.4); MEAN CORPUSCULAR HGB CONC 32.7 g/dL (32.0-36.0); MEAN CORPUSCULAR VOLUME 88 fl (80-97); PLATELET COUNT 146 10^3/uL (150-450); RED BLOOD COUNT 3.93 10^6/uL (4.35-5.55); RED CELL DISTRIBUTION WIDTH 17.4 % (11.5-14.0); WHITE BLOOD COUNT 9.2 10^3/uL (4.0-10.5)
[2018-12-24 05:28] LABS: ANION GAP 11 (5-19); BLOOD UREA NITROGEN 29 mg/dL (7-20); CALCIUM 9.2 mg/dL (8.4-10.2); CARBON DIOXIDE 21 mmol/L (22-30); CHLORIDE 115 mmol/L (98-107); GLUCOSE 103 mg/dL (75-110); POTASSIUM 3.5 mmol/L (3.6-5.0)
[2018-12-24] MEDS ORDERED: ONDANSETRON HCL INJ/PF 4 MG/2 ML SDV ONE (07:55)
[2018-12-24] MEDS ORDERED: KETAMINE HCL INJ 500 MG/10 ML VIAL ONE (07:55)
[2018-12-24] MEDS ORDERED: PROPOFOL INJ 200 MG/20 ML VIAL IV ONE (07:56)
[2018-12-24] MEDS: CEFAZOLIN INJ 1 GM VIAL ONE ×2 (10:25→10:30)
--- NOTE | 2018-12-24 10:44 | Operative Report ---
Operative Report DATE OF SURGERY: 12/24/18 PREOPERATIVE DIAGNOSIS: cva POSTOPERATIVE DIAGNOSIS: cva OPERATION: peg tube placement SURGEON: WILMAN CHASE 1ST BLEACHER LARD: LACEY WILCOX - ANESTHESIA: LMAC TISSUE REMOVED OR ALTERED: none COMPLICATIONS: none ESTIMATED BLOOD LOSS: 0 INTRAOPERATIVE FINDINGS: see procedure PROCEDURE: Patient was brought to the operating room awake alert stable condition and placed on the operative table and IV sedation during the procedure after appropriate timeout the abdomen was prepped and draped in usual sterile fashion using the Olympus gastroscope was passed into the mouth into the posterior pharynx and into the stomach. We was unable to visualize compression from the anterior abdominal wall and to the visualized portion of the stomach. Then usi ng needle supplied with the PEG kit it was placed into the anterior abdominal wall and identified within the stomach the wire was then placed through the needle and grasped with a snare using the gastroscope and pulled out through the mouth. A transverse incision was made then in the left lateral abdominal wall the wire was then attached to the PEG tube and that was pulled and through the mouth and exited the stomach on the anterior abdominal wall the button of the gastrostomy tube was then confirmed good position using the gastroscope. The PEG tube was then fixed to the anterior abdominal wall with the a buttress applied with the kit L dressing was applied. This was a 20 [place] PEG tube that was inserted. She tolerated the procedure well was transferred to recovery in stable condition
[2018-12-24] MEDS: BUMETANIDE INJ/PF 1 MG/4 ML SDV IV SCH (11:58)
[2018-12-24] MEDS: FAMOTIDINE INJ/PF 20 MG/2 ML SDV IV SCH ×2 (11:58→21:52)
[2018-12-24] MEDS: LISINOPRIL 10 MG TABLET PO SCH (11:59)
[2018-12-24] MEDS: PANTOPRAZOLE SODIUM 40 MG VIAL IV SCH ×2 (11:59→21:52)
[2018-12-24] MEDS: HYDROCHLOROTHIAZIDE 12.5 MG TABLET PO SCH (11:59)
[2018-12-24] MEDS: ISOSORBIDE DINITRATE 20 MG TABLET PO SCH ×2 (11:59→21:52)
[2018-12-24] MEDS: ASPIRIN 81 MG TABLET, CHEWABLE PO SCH (11:59)
[2018-12-24] MEDS: CARVEDILOL 12.5 MG TABLET PO SCH ×2 (11:59→21:52)
[2018-12-24] MEDS: PREDNISONE 10 MG TABLET PO SCH (12:00)
[2018-12-24] MEDS: NITROGLYCERIN 2.5 MG (0.1 MG/HR) PATCH.TD24 TD SCH (12:03)
--- NOTE | 2018-12-24 14:54 | PDOC PROGRESS REPORT ---
Subjective Progress Note for:: 12/24/18 Subjective:: The patient is a 58-year-old male with a past medical history of CHF, hypertension, CVA w/ residual Rt side weakness, CKD, arthritis who was admitted 12/19/2018 for stroke symptoms and found to have had a left frontoparietal subacute CVA. The patient was seen on morning rounds after PEG tube was placed. He is found resting in bed comfortably on room air. He is awake and alert, socially appropriate, but difficult to have conversation with as he does not clearly an swer questions. He is able to tell me that he has pain and swelling to his left third finger; denies known injury. Not tender to touch or warm. No history of gout. Otherwise he has no complaints at this time and denies fever, chills, chest pain, shortness of breath, abdominal pain. No concerns per nursing. Reason For Visit: ACUTE CVA Physical Exam Vital Signs: Temp Pulse Resp BP Pulse Ox 97.3 F 75 16 170/97 H 97 12/24/18 12:17 12/24/18 12:17 12/24/18 12:17 12/24/18 12:17 12/24/18 12:17 Intake & Output 12/23/18 12/24/18 12/25/18 06:59 06:59 06:59 Intake Total 2075 100 150 Output Total 1175 550 575 Balance 900 -450 -425 Weight 63.9 kg 63.9 kg General appearance: PRESENT: no acute distress, cooperative, thin, well- developed, well-nourished Head exam: PRESENT: atraumatic, normocephalic Eye exam: PRESENT: conjunctival injection - Left upper lid stye; decreased drainage, conjunctiva pink, EOMI, PERRLA. ABSENT: scleral icterus Ear exam: PRESENT: normal external ear exam Mouth exam: PRESENT: moist, tongue midline Teeth exam: PRESENT: poor dentation Neck exam: ABSENT: carotid bruit, JVD, lymphadenopathy, thyromegaly Respiratory exam: PRESENT: rhonchi - Slight; improved following, symmetrical, unlabored. ABSENT: rales, wheezes Cardiovascular exam: PRESENT: RRR, +S1, +S2. ABSENT: diastolic murmur, rubs, systolic murmur Pulses: PRESENT: normal dorsalis pedis pul Vascular exam: PRESENT: normal capillary refill GI/Abdominal exam: PRESENT: normal bowel sounds, soft. ABSENT: distended, guarding, mass, organolmegaly, rebound, tenderness Rectal exam: PRESENT: deferred Extremities exam: PRESENT: full ROM - Moves all extremities spontaneously. ABSENT: calf tenderness, clubbing, pedal edema Neurological exam: PRESENT: alert, awake, oriented to person, oriented to place, oriented to time, oriented to situation, CN II-XII grossly intact, other - Slurred speech, bilateral extremity weakness with left greater than right. ABSENT: motor sensory deficit Psychiatric exam: PRESENT: appropriate affect, normal mood. ABSENT: homicidal ideation, suicidal ideation Skin exam: PRESENT: dry, intact, warm. ABSENT: cyanosis, rash Results Laboratory Results: 12/24/18 04:44 12/24/18 04:44 12/24/18 12/24/18 04:44 04:44 WBC 9.2 RBC 3.93 L Hgb 11.3 L Hct 34.4 L MCV 88 MCH 28.6 MCHC 32.7 RDW 17.4 H Plt Count 146 L Sodium 146.7 H Potassium 3.5 L Chloride 115 H Carbon Dioxide 21 L Anion Gap 11 BUN 29 H Creatinine 2.76 H Est GFR ( Amer) 29 L Glucose 103 Calcium 9.2 12/19/18 12/19/18 12/19/18 17:25 17:25 23:09 Creatine Kinase 253 H 283 H CK-MB (CK-2) 4.68 H Troponin I 0.028 12/19/18 12/20/18 12/20/18 23:09 05:11 05:11 Creatine Kinase 296 H CK-MB (CK-2) 4.92 H 4.23 Troponin I 0.032 0.048 12/20/18 12/20/18 10:45 10:45 Creatine Kinase 289 H CK-MB (CK-2) 3.76 Troponin I 0.046 Impressions: Chest X-Ray 12/19/18 19:05 IMPRESSION: Cardiomegaly without acute abnormality of the lungs. No focal airspace opacity. Head CT 12/19/18 19:05 IMPRESSION: 1. New low-attenuation area at the left frontoparietal region, may represent a subacute/ chronic infarct. No acute intracranial hemorrhage. If clinical concern persists for acute ischemia, MRI can be obtained for further evaluation. 2. Cortical atrophy and chronic microvascular ischemic changes. EVIDENCE OF ACUTE STROKE: NO. Head MRI 12/20/18 00:00 IMPRESSION: Technical limitations. No acute findings. EVIDENCE OF ACUTE STROKE: NO. Carotid Doppler Study 12/21/18 00:00 IMPRESSION: NO HEMODYNAMICALLY SIGNIFICANT STENOSIS. Modified Barium Swallow 12/23/18 00:00 IMPRESSION: LARYNGEAL PENETRATION FROM RESIDUALS, WITH EVENTUAL TRACHEAL ASPIRATION IDENTIFIED. PLEASE SEE SPEECH PATHOLOGIST REPORT FOR OTHER FINDINGS AND RECOMMENDATIONS. Assessment and Plan - Diagnosis (1) CVA (cerebral vascular accident) Qualifiers: CVA mechanism: unspecified Qualified Code(s): I63.9 - Cerebral infarction, unspecified Is this a current diagnosis for this admission?: Yes Plan: CT head reveals left frontoparietal subacute CVA MRI was nondiagnostic secondary to patient movement. Carotid Doppler is negative for hemodynamically significant stenosis. Echocardiogram Demonstrated LVEF 45 to 50% with mild to moderate global hypokinesis of the left ventricle and mild to moderately reduced systolic function. There is no obvious cardiac source of embolus noted on TTE. Lipid panel and A1c are acceptable. No history of A. fib/PAF; patient may still benefit from ERMA can be arranged as an outpatient. Although, the patient is chronically anticoagulated on Eliquis. Continue daily aspirin therapy. Continue home dose, renally dosed, Eliquis. Antihypertensives as below; blood pressure is improved today. PT/OT/ST consultations obtained. Discharge planning is consulted for disposition; patient likely will benefit from short-term rehab. (2) Chronic kidney disease (CKD) Qualifiers: Chronic kidney disease stage: stage 3 (moderate) Qualified Code(s): N18.3 - Chronic kidney disease, stage 3 (moderate) Is this a current diagnosis for this admission?: Yes Plan: Stable; baseline creatinine appears to be 2.48. We will continue gentle IV fluids until patient is taking adequate p.o. intake. Avoid nephrotoxic medications as able. Daily chemistries. (3) Hypertension Qualifiers: Hypertension type: essential hypertension Qualified Code(s): I10 - Ess ential (primary) hypertension Is this a current diagnosis for this admission?: Yes Plan: Overall improved; occasional elevated blood pressures. Continue home dose Carvedilol, hydralazine, and isosorbide. Will increase lisinopril to 30 mg daily. Continue home dose hydrochlorothiazide. We will continue IV Lopressor as needed for blood pressure control. (4) Acute encephalopathy Is this a current diagnosis for this admission?: Yes Plan: Secondary to subacute CVA. Resolved; patient is now alert and oriented to self. Likely oriented to situation and place, although difficult to tell due to expressive aphasia. The patient's confirms that he had intermittent confusion and expressive aphasia prior to current CVA related to prior CVA. Now at baseline per family. He does follow simple commands. Supportive care. (5) Dysphagia Is this a current diagnosis for this admission?: Yes Plan: Patient failed modified barium swallow study with evidence of aspiration/penetration. PEG tube placed today. Spoke with Dr. Miller; may use PEG beginning tomorrow. Registered dietitian is consulted for tube feeding recommendations. - Time Time Spent with patient: 15-24 minutes Medications reviewed and adjusted accordingly: Yes Anticipated discharge: SNF Within: when bed available - Plan Summary Plan Summary: Patient is medically stable for discharge to SNF for rehab. He will require tube feedings via PEG.
[2018-12-24] MEDS: NORMAL SALINE 1000 ML 1,000 ML IV PRN (19:42)
[2018-12-25] MEDS: ERYTHROMYCIN 0.5% OPH OINTMENT 3.5 GM TUBE OU SCH ×2 (00:55→05:28)
[2018-12-25] MEDS: HYDRALAZINE HCL 10 MG TABLET PO SCH ×3 (00:55→12:30)
[2018-12-25] MEDS: NORMAL SALINE 1000 ML 1,000 ML IV PRN (05:29)
[2018-12-25 07:02] LABS: ANION GAP 9 (5-19); BLOOD UREA NITROGEN 37 mg/dL (7-20); CALCIUM 8.9 mg/dL (8.4-10.2); CARBON DIOXIDE 21 mmol/L (22-30); CHLORIDE 117 mmol/L (98-107); GLUCOSE 92 mg/dL (75-110); POTASSIUM 3.8 mmol/L (3.6-5.0)
[2018-12-25] MEDS ORDERED: LISINOPRIL 10 MG TABLET PO SCH (10:00)
[2018-12-25] MEDS: PREDNISONE 10 MG TABLET PO SCH (11:05)
[2018-12-25] MEDS: ISOSORBIDE DINITRATE 20 MG TABLET PO SCH (11:05)
[2018-12-25] MEDS: ASPIRIN 81 MG TABLET, CHEWABLE PO SCH (11:06)
[2018-12-25] MEDS: HYDROCHLOROTHIAZIDE 12.5 MG TABLET PO SCH (11:06)
[2018-12-25] MEDS: NITROGLYCERIN 2.5 MG (0.1 MG/HR) PATCH.TD24 TD SCH (11:07)
[2018-12-25] MEDS: CARVEDILOL 12.5 MG TABLET PO SCH (11:07)
[2018-12-25] MEDS: FAMOTIDINE INJ/PF 20 MG/2 ML SDV IV SCH (11:09)
[2018-12-25] MEDS: PANTOPRAZOLE SODIUM 40 MG VIAL IV SCH (11:09)
--- NOTE | 2018-12-25 11:52 | PDOC TRANSFER SUMMARY ---
General - Admit/Disc Date/PCP Admission Date/Primary Care Provider: 12/19/18 20:46 JACKI JOHNSON MD Discharge Date: 12/25/18 - Discharge Diagnosis (1) CVA (cerebral vascular accident) Is this a current diagnosis for this admission?: Yes Summary: CT head reveals left frontoparietal subacute CVA MRI was nondiagnostic secondary to patient movement. Carotid Doppler is negative for hemodynamically significant stenosis. Echocardiogram Demonstrated LVEF 45 to 50% with mild to moderate global hypokinesis of the left ventricle and mild to moderately reduced systolic function. There is no obvious cardiac source of embolus noted on TTE. Lipid panel and A1c are acceptable. No history of A. fib/PAF; the patient is chronically anticoagulated on Eliquis. Patient was admitted to [facility] on continuous cardiac telemetry. He was placed on daily aspirin and statin therapy. Continue home, renally dosed, Eliquis. Antihypertensives as below; blood pressure is improved today. PT/OT/ST consultations obtained; recommend continued rehab services. Have received bed offer at SNF for short term rehab. (2) Chronic kidney disease (CKD) Is this a current diagnosis for this admission?: Yes Summary: Stable; baseline creatinine appears to be 2.48. Avoid nephrotoxic medications as able; renally dose when required. Encourage ice chips by mouth; will require continued ST services for dysphagia. Continue fluids via PEG at 30 ml free water flushes hourly and an additional 90 ml free water flush twice daily. Recommend routing monitoring with periodic chemistries. (3) Hypertension Is this a current diagnosis for this admission?: Yes Summary: Overall improved; occasional elevated blood pressures. Continue home dose Carvedilol, hydralazine, isosorbide and hydrochlorothiazide. Have increased lisinopril to 30 mg daily. (4) Acute encephalopathy Is this a current diagnosis for this admission?: Yes Summary: Secondary to subacute CVA. Resolved; patient is now A&Ox4. Continues to have slurred speech and expressive aphasia. The patient's confirms that he had intermittent confusion and expressive aphasia prior to current CVA related to prior CVA. Now at baseline per family. (5) Dysphagia Is this a current diagnosis for this admission?: Yes Summary: Patient failed modified barium swallow study with evidence of aspiration/penetration. PEG tube placed yesterday by Dr. Miller; may use PEG. Registered dietitian is consulted for tube feeding recommendations. Recommend Jevity 1.5 starting at 20 ml/hr continuous feeding. Advance by 5 ml/hr every 8 hours to a goal of 40 ml/hr. Provide free water flushes, 30 ml/hr and an additional 90 ml twice daily. (6) Thrush Is this a current diagnosis for this admission?: Yes Summary: Recommend oral care and magic mouth wash rinse. (7) Conjunctivitis Is this a current diagnosis for this admission?: Yes Summary: Tobramycin gtt every 6 hours. Recommend ophthalmology follow-up appointment if not improved in 5 to 7 days. May use warm compresses - Additional Information Resuscitation Status: Full Code Discharge Diet: Tube Feeding (Comments) Discharge Activity: Activity As Tolerated, Balance Activity w/Rest, Slowly Incre ase Activity, Supervised Activity Prescriptions: Atorvastatin Calcium [Lipitor 80 mg Tablet] 80 mg PO QHS #30 tablet Nitroglycerin [Nitro-Dur 2.5 mg (0.1 mg/Hr) Transdermal Ptch] 1 each TD DAILY #30 patch.td24 Tobramycin Sulfate/Dexameth [Tobradex Oph Drops 2.5 ml] 1 drop OU Q6H #1 bottle Home Medications: Amino Acids/Protein Hydrolys [Pro-Stat Awc Liquid Packet] 30 ml PO DAILY 12/20/18 Apixaban [Eliquis 2.5 mg Tablet] 2.5 mg PO Q12 12/20/18 Aspirin [Aspirin 81 mg Chewable Tablet] 81 mg PO DAILY 12/20/18 Baclofen [Baclofen 10 mg Tablet] 5 mg PO Q8 12/20/18 Carvedilol [Coreg 25 mg Tablet] 25 mg PO Q12 12/20/18 Docusate Sodium [Colace 100 mg Capsule] 100 mg PO QPM 12/20/18 Ferrous Sulfate [Feosol 325 mg Tablet] 325 mg PO DAILY 12/20/18 Hydralazine HCl [Apresoline 10 mg Tablet] 10 mg PO Q6 12/20/18 Isosorbide Dinitrate [Isordil Titradose 20 mg Tablet] 40 mg PO Q12 12/20/18 Lisinopril/Hydrochlorothiazide [Lisinopril-Hctz 20-12.5 mg Tab] 1 tab PO DAILY 12/20/18 Prednisone [Deltasone 10 mg Tablet] 10 mg PO DAILY 12/20/18 Acetaminophen [Tylenol 650 mg Supp] 650 mg MN Q4HP PRN supp.rect 12/25/18 Atorvastatin Calcium [Lipitor 80 mg Tablet] 80 mg PO QHS #30 tablet 12/25/18 Nitroglycerin [Nitro-Dur 2.5 mg (0.1 mg/Hr) Transdermal Ptch] 1 each TD DAILY #30 patch.td24 12/25/18 Nystatin/Dexameth/Diphen [Magic Mouthwash (Omh Formula) Susp] 5 ml PO QID #120 ml 12/25/18 Tobramycin Sulfate/Dexameth [Tobradex Oph Drops 2.5 ml] 1 drop OU Q6H #1 bottle 12/25/18 History of Present Illness Admission Date/PCP: 12/19/18 20:46 JACKI JOHNSON MD History of Present Illness: H&P per Dr. Anderson: OLYA RACHEL is a 58 year old male who presented via EMS to the emergency room with a history that he had been last seen in his normal state at a about noon on the day of admission. On the evening of the day of admission the patient had been discovered unresponsive at his home and EMS was summoned. Patient was noted to have pinpoint pupils and be unresponsive to verbal and tactile stimuli, and only minimally responsive to painful stimuli. Patient was unaccompanied and is unable to provide any information due to his acute encephalopathy. In the emergency room the patient was noted to remain very poorly responsive to all but painful stimuli and a CT scan of the head demonstrated a new left frontoparietal area of infarction which was felt to be possibly subacute or chronic. Patient was subsequently admitted to the hospital for further evaluation and treatment per the stroke protocol. Physical Exam Vital Signs: Temp Pulse Resp BP Pulse Ox 97.3 F 76 18 154/79 H 94 12/25/18 08:07 12/25/18 08:07 12/25/18 08:07 12/25/18 08:07 12/25/18 08:07 Intake & Output 12/24/18 12/25/18 12/26/18 06:59 06:59 06:59 Intake Total 100 2128 0 Output Total 550 1375 Balance -450 753 0 Weight 62.4 kg General appearance: PRESENT: no acute distress, cooperative, thin, well- developed, well-nourished Head exam: PRESENT: atraumatic, normocephalic Eye exam: PRESENT: conjunctival injection - (+) drainage, EOMI, PERRLA. ABSENT: scleral icterus Ear exam: PRESENT: normal external ear exam Mouth exam: PRESENT: moist, tongue midline, other - thrush Teeth exam: PRESENT: poor dentation Neck exam: ABSENT: carotid bruit, JVD, lymphadenopathy, thyromegaly Respiratory exam: PRESENT: clear to auscultation ubaldo, symmetrical, unlabored. ABSENT: rales, rhonchi, wheezes Cardiovascular exam: PRESENT: RRR, +S1, +S2. ABSENT: diastolic murmur, rubs, systolic murmur Pulses: PRESENT: normal dorsalis pedis pul Vascular exam: PRESENT: normal capillary refill GI/Abdominal exam: PRESENT: normal bowel sounds, soft. ABSENT: distended, guarding, mass, organolmegaly, rebound, tenderness Rectal exam: PRESENT: deferred Extremities exam: PRESENT: full ROM. ABSENT: calf tenderness, clubbing, pedal edema Neurological exam: PRESENT: alert, awake, oriented to person, oriented to place, oriented to time, oriented to situation, CN II-XII grossly intact, other - Slurred speech, improved; bilateral extremity weakness with left greater than right. ABSENT: motor sensory deficit Psychiatric exam: PRESENT: appropriate affect, normal mood. ABSENT: homicidal ideation, suicidal ideation Skin exam: PRESENT: dry, intact, warm. ABSENT: cyanosis, rash Results Laboratory Results: 12/24/18 04:44 12/25/18 06:18 12/25/18 06:18 Sodium 147.2 H Potassium 3.8 Chloride 117 H Carbon Dioxide 21 L Anion Gap 9 BUN 37 H Creatinine 2.68 H Est GFR ( Amer) 30 L Glucose 92 Calcium 8.9 12/19/18 12/19/18 12/19/18 17:25 17:25 23:09 Creatine Kinase 253 H 283 H CK-MB (CK-2) 4.68 H Troponin I 0.028 12/19/18 12/20/18 12/20/18 23:09 05:11 05:11 Creatine Kinase 296 H CK-MB (CK-2) 4.92 H 4.23 Troponin I 0.032 0.048 12/20/18 12/20/18 10:45 10:45 Creatine Kinase 289 H CK-MB (CK-2) 3.76 Troponin I 0.046 Impressions: Chest X-Ray 12/19/18 19:05 IMPRESSION: Cardiomegaly without acute abnormality of the lungs. No focal airspace opacity. Head CT 12/19/18 19:05 IMPRESSION: 1. New low-attenuation area at the left frontoparietal region, may represent a subacute/ chronic infarct. No acute intracranial hemorrhage. If clinical concern persists for acute ischemia, MRI can be obtained for further evaluation. 2. Cortical atrophy and chronic microvascular ischemic changes. EVIDENCE OF ACUTE STROKE: NO. Head MRI 12/20/18 00:00 IMPRESSION: Technical limitations. No acute findings. EVIDENCE OF ACUTE STROKE: NO. Carotid Doppler Study 12/21/18 00:00 IMPRESSION: NO HEMODYNAMICALLY SIGNIFICANT STENOSIS. Modified Barium Swallow 12/23/18 00:00 IMPRESSION: LARYNGEAL PENETRATION FROM RESIDUALS, WITH EVENTUAL TRACHEAL ASPIRATION IDENTIFIED. PLEASE SEE SPEECH PATHOLOGIST REPORT FOR OTHER FINDINGS AND RECOMMENDATIONS. Transfer Plan - Disposition Transfer Plan: D/C to SNF for short term rehab - Time Spent with Patient Time spent with patient: Less than 30 Minutes Qualifiers - * PATIENT BEING DISCHARGED WITH ANY OF THE FOLLOWING DIAGNOSIS: Stroke Stroke Pt being discharged on Anti-thrombolytic therapy?: Yes Stroke Pt being discharged on Anti-coagulation therapy?: Yes Stroke Pt being discharged on Statins?: Yes Acute Heart Failure - Is this a Heart Failure Patient?: No Plan Discharge Plan: Discharge to SNF for short term rehab. Time Spent: Greater than 30 Minutes
[2018-12-25] MEDS ORDERED: TOBRAMYCIN SULFATE/DEXAMETH OPH SUSP 2.5 ML OU SCH (12:00)
[2018-12-25 12:32] VITALS: BP 143/86
[2018-12-25] MEDS ORDERED: BACLOFEN 10 MG TABLET PO SCH (14:00)
[2018-12-25] MEDS ORDERED: AMINO AC/PROTEIN HYDR/WHEY PRO 11 GM/45 ML PKT NG SCH (14:00)
[2018-12-25] MEDS ORDERED: NYSTATIN/DEXAMETH/DIPHEN SUSP 120 ML PO SCH (14:00)
[2018-12-26] MEDS ORDERED: PROTEIN HYDROLYS PO SCH (10:00)
[2018-12-26] MEDS ORDERED: AMINO ACIDS PO SCH (10:00)
[2018-12-26] MEDS ORDERED: FERROUS SULFATE 325 MG TABLET PO SCH (10:00)
== END 2018-12-25 17:23 | DRG 65 ==
LOC: ER 19:03 → EH 20:46 → 3W 12-20 00:30
PROVIDERS: ADMIT Emergency Medicine; ATTEND Emergency Medicine
PROC: 0DH63UZ Insertion of Feeding Device into Stomach, Percutaneous Approach (ICD-10-PCS; principal; 2018-12-24 09:30)
DX: I63.9 Cerebral infarction, unspecified (principal); G93.40 Encephalopathy, unspecified; B37.0 Candidal stomatitis; I12.9 Hypertensive chronic kidney disease with stage 1 through stage 4 chronic kidney disease, or unspecified chronic kidney disease; R47.81 Slurred speech; R47.01 Aphasia; R13.10 Dysphagia, unspecified; H10.9 Unspecified conjunctivitis; N18.3 Chronic kidney disease, stage 3 (moderate); Z79.899 Other long term (current) drug therapy; Z88.8 Allergy status to other drugs, medicaments and biological substances; Z79.82 Long term (current) use of aspirin
CPT/HCPCS: 00731; 36415; 43246; 70450; 70551; 71045; 74230; 80048; 80053; 80061; 81001; 82550; 82553; 82962; 83036; 84439; 84443; 84481; 84484; 85025; 85027; 85610; 85730; 93005; 93010; 93306; 93880; 96374; 96375; 99285; J0360; J0690; J1644; J1953; J2060; J2310; J2405; J2704; J3490; J7030; J7512; S0028; S0164

== ENCOUNTER 2019-05-14 09:03 | Inpatient (IN) | payer MEDICARE, OTHER ==
--- NOTE | 2019-05-14 10:13 | RADIOLOGY REPORT (SQ) ---
EXAM DESCRIPTION: CT HEAD WITHOUT COMPLETED DATE/TIME: 05/14/2019 9:51 am REASON FOR STUDY: seizure COMPARISON: MRI brain 12/20/2018 CT brain 12/19/2018, 08/21/2018, TECHNIQUE: Axial images acquired through the brain without intravenous contrast. Images reviewed wi th bone, brain and subdural windows. Additional sagittal and coronal reconstructions were generated. Images stored on PACS. All CT scanners at this facility use dose modulation, iterative reconstruction, and/or weight based d osing when appropriate to reduce radiation dose to as low as reasonably achievable (ALARA). [facility]: Dose Right [facility]: CareDose [facility]: Dose Right [facility]: Teradose 4D [facility]: Smart [employer] RADIATION DOSE: CT Rad equipment meets quality standard of care and radiation dose reduction techniq ues were employed. CTDIvol: 53.2 mGy. DLP: 937 mGy-cm. mGy. LIMITATIONS: None. FINDINGS: VENTRICLES: Normal size and contour. CEREBRUM: No CT evidence of acute large territory ischemic change, acute intracranial hemorrhage, mas s effect, or midline shift. Old infarct the left posterior frontal cortex and subcortical white matter extending into the senior technical trainer ior limb internal capsule and left thalamus. Moderate bifrontal and biparietal chronic small vessel ischemic change. CEREBELLUM: No masses. No hemorrhage. No alteration of density. No evidence for acute infarction. EXTRAAXIAL SPACES: No fluid collections. No masses. ORBITS AND GLOBE: No intra- or extraconal masses. Normal contour of globe without masses. CALVARIUM: No fracture. PARANASAL SINUSES: No fluid or mucosal thickening. SOFT TISSUES: No mass or hematoma. OTHER: No other significant finding. IMPRESSION: Multiple old infarcts. No acute findings. EVIDENCE OF ACUTE STROKE: NO. COMMENT: Quality ID # [id number]: Final reports with documentation of one or more dose reduction techniques (e.g., Automated exposure control, adjustment of the mA and/or kV according to patient size, use of iterative reconstruction technique) TECHNICAL DOCUMENTATION: JOB ID: [id number] [employer]- All Rights Reserved Reading location - IP/workstation name: [email or web address]
--- NOTE | 2019-05-14 10:15 | RADIOLOGY REPORT (SQ) ---
EXAM DESCRIPTION: CT CERVICAL SPINE WITHOUT COMPLETED DATE/TIME: 05/14/2019 9:51 am REASON FOR STUDY: Fall, seizures, hit head, anticoagulated COMPARISON: None. TECHNIQUE: Axial images acquired through the cervical spine without intravenous contrast. Images re viewed with lung, soft tissue and bone windows. Reconstructed coronal and sagittal MPR images review ed. Images stored on PACS. All CT scanners at this facility use dose modulation, iterative reconstruction, and/or weight based d osing when appropriate to reduce radiation dose to as low as reasonably achievable (ALARA). [facility]: Dose Right [facility]: CareDose [facility]: Dose Right [facility]: Teradose 4D [facility]: [employer] RADIATION DOSE: CT Rad equipment meets quality standard of care and radiation dose reduction techniq ues were employed. CTDIvol: 23.8 mGy. DLP: 435 mGy-cm. LIMITATIONS: None. FINDINGS: ALIGNMENT: Anatomic. There is no craniocervical or atlantoaxial dissociation. MINERALIZATION: Normal. VERTEBRAL BODIES: The cervical vertebral body heights are preserved. There is no fracture. DISCS: Evaluation of the spinal canal for stenosis and cord compression is limited due to the absence of intrathecal contrast. The intervertebral disc space heights are preserved. FACETS, LATERAL MASSES, POSTERIOR ELEMENTS: No fracture or malalignment. No osteophytic foraminal st enosis. HARDWARE: None in the spine. VISUALIZED RIBS: No fractures. LUNG APICES AND SOFT TISSUES: Emphysema and atherosclerotic calcification of the carotid bifurcation s. OTHER: No other finding. IMPRESSION: No acute fracture or malalignment of the cervical spine. TECHNICAL DOCUMENTATION: JOB ID: [id number] Quality ID # [id number]: Final reports with documentation of one or more dose reduction techniques (e.g., Au tomated exposure control, adjustment of the mA and/or kV according to patient size, use of iterative reconstruction technique) 2010 [employer]- All Rights Reserved Reading location - IP/workstation name: [email or web address]
[2019-05-14 10:25] LABS: ABSOLUTE BASOPHILS # (AUTO) 0.1 10^3/uL (0.0-0.2); ABSOLUTE EOSINOPHILS # (AUTO) 0.1 10^3/uL (0.0-0.6); ABSOLUTE LYMPHOCYTES (AUTO) 1.9 10^3/uL (0.5-4.7); ABSOLUTE MONOCYTES (AUTO) 0.7 10^3/uL (0.1-1.4); ABSOLUTE NEUT (AUTO) 5.6 10^3/uL (1.7-8.2); BASOPHILS % (AUTO) 0.8 % (0-2); EOSINOPHILS % (AUTO) 1.4 % (0-6); HEMATOCRIT 42.8 % (37.9-51.0); HEMOGLOBIN 13.8 g/dL (13.5-17.0); LYMPHOCYTES % (AUTO) 23.1 % (13-45); MEAN CORPUSCULAR HEMOGLOBIN 29.5 pg (27.0-33.4); MEAN CORPUSCULAR HGB CONC 32.2 g/dL (32.0-36.0); MEAN CORPUSCULAR VOLUME 91 fl (80-97); MONOCYTES % (AUTO) 7.8 % (3-13); PLATELET COUNT 157 10^3/uL (150-450); RED BLOOD COUNT 4.67 10^6/uL (4.35-5.55); RED CELL DISTRIBUTION WIDTH 16.1 % (11.5-14.0); SEGMENTED NEUTROPHILS % (AUTO) 66.9 % (42-78); TOTAL CELLS COUNTED % (AUTO) 100 %; WHITE BLOOD COUNT 8.4 10^3/uL (4.0-10.5)
--- NOTE | 2019-05-14 10:29 | ER Document Report ---
Entered by CAMILO COLEMAN SCRIBE 05/14/19 0926 Acting as scribe for:MARIA ISABEL GAYTAN MD ED Fall - General Chief Complaint: Fall Stated Complaint: FALL Time Seen by Provider: 05/14/19 09:22 Primary Care Provider: ADAM MERIDA MD [Primary Care Provider] - Follow up as needed Mode of Arrival: Ambulatory Information source: Patient Notes: This 59 year old male patient presents to the emergency department today with complaints of being found face down outside his house by his neighbor. Patient was last seen normal last night at 8:30pm. Patient is on eloquis. Patient does not answer questions and there is no family here with the patient so history is extremely limited. EMS reports that the neighbors told them the patient is left alone throughout the night frequently, they did not have any more history. TRAVEL OUTSIDE OF THE [place] IN LAST 30 DAYS: No - Related data Allergies/Adverse Reactions: lisinopril Allergy (Verified 03/09/18 09:47) Past Medical History - General Information source: Patient - Social History Smoking Status: Former Smoker Frequency of alcohol use: None Drug Abuse: None Family History: Reviewed & Not Pertinent - Past Medical History Cardiac Medical History: Reports: Hx Congestive Heart Failure, Hx Hypertension Musculoskeletal Medical History: Reports Hx Arthritis - hips Review of Systems - Review of Systems -: Yes ROS unobtainable due to patient's medical condition Physical Exam - Vital signs Vitals: Resp 14 05/14/19 09:10 - Notes Notes: Physical Exam: General: Alert, appears well. HEENT: Normocephalic. There is drool mixed with blood on the patient's right cheek. PERRL. Extraocular movements intact. Oropharynx clear. Arcus senilis. The tongue does have some lacerations noted on the right side. Neck: Non-tender. After negative CT scan, further evaluation of the neck showed it to be nontender with good range of motion. Respiratory: No respiratory distress. Clear and equal breath sounds bilaterally. Cardiovascular: Regular rate and rhythm. Abdominal: Normal Inspection. Non-tender. No distension. Normal Bowel Sounds. Back: No gross abnormalities. Extremities: Upper extremities: RUE has flexor deformity at the hand and wrist with some minor edema from prior CVA. Lower extremities: Normal inspection. No edema. Normal ROM. Neurological: Patient does not appear to be postictal at this time. He has only minimal withdrawal on stroking the bottom of his feet. Skin: Warm. Dry. Normal color. Course - Re-evaluation Re-evalutation: 05/14/19 11:18 At this time the patient is awake, alert, oriented to himself. He is a poor historian, and is vague when I asked him if he may have had a history of seizures. He did bite his tongue, and his presentation was most consistent with a post ictal state following a generalized seizure. - Vital Signs Vital signs: Temp Pulse Resp BP Pulse Ox 98.5 F 19 162/95 H 98 05/14/19 09:11 05/14/19 10:01 05/14/19 10:00 05/14/19 10:01 - Laboratory Result Diagrams: 05/14/19 09:45 05/14/19 09:45 Laboratory results interpreted by me: 05/14/19 05/14/19 09:45 09:45 RDW 16.1 H Carbon Dioxide 19 L BUN 29 H Creatinine 2.40 H Est GFR ( Amer) 33 L Est GFR (MDRD) Non-Af 28 L Glucose 118 H Alkaline Phosphatase 148 H Creatine Kinase 233 H Total Protein 8.5 H - Diagnostic Test Radiology reviewed: Image reviewed, Reports reviewed - CT scan of the cervical spine and head showed no acute injuries, multiple old infarcts in the brain. - EKG Interpretation by Me EKG shows normal: Sinus rhythm, [place], Intervals, QRS Complexes, ST-T Waves Rate: Normal - 93 Rhythm: NSR Acton/QRS: LBBB When compared to previous EKG there are: No significant change - Consults Birgit Rouse NP Time consulted: 11:20 Consulted provider: will come to ER Discharge - Discharge Clinical Impression: Seizure, Postictal state Tongue laceration Qualifiers: Encounter type: initial encounter Qualified Code(s): S01.512A - Laceration without foreign body of oral cavity, initial encounter Chronic kidney disease (CKD) Qualifiers: Chronic kidney disease stage: stage 4 (severe) Qualified Code(s): N18.4 - Chronic kidney disease, stage 4 (severe) Condition: Stable Disposition: ADMITTED INPATIENT Admitting Provider: Pauline (Hospitalist) Unit Admitted: IMCU Referrals: ADAM MERIDA MD [Primary Care Provider] - Follow up as needed Scribe Attestation: 05/14/19 11:23 I personally performed the services described in the documentation, reviewed and edited the documentation which was dictated to the scribe in my presence, and it accurately records my words and actions. I personally performed the services described in the documentation, reviewed and edited the documentation which was dictated to the scribe in my presence, and it accurately records my words and actions.
[2019-05-14 10:52] LABS: ALBUMIN 4.2 g/dL (3.5-5.0); ALKALINE PHOSPHATASE 148 U/L (38-126); ANION GAP 18 (5-19); ASPARTATE AMINO TRANSFERASE 29 U/L (17-59); BILIRUBIN,DIRECT 0.4 mg/dL (0.0-0.4); BILIRUBIN,TOTAL 0.6 mg/dL (0.2-1.3); BLOOD UREA NITROGEN 29 mg/dL (7-20); CALCIUM 9.4 mg/dL (8.4-10.2); CARBON DIOXIDE 19 mmol/L (22-30); CHLORIDE 107 mmol/L (98-107); CREATINE KINASE 233 U/L (55-170); GLUCOSE 118 mg/dL (75-110); POTASSIUM 4.3 mmol/L (3.6-5.0); TOTAL PROTEIN 8.5 g/dL (6.3-8.2)
[2019-05-14] MEDS ORDERED: LEVETIRACETAM 1000 MG/NACL-ISO 1,000 MG/100 ML RTUPB IV ONE (11:17)
[2019-05-14 11:28] LABS: APPEARANCE,URINE CLEAR; BILIRUBIN,URINE NEGATIVE (NEGATIVE); COLOR,URINE STRAW; GLUCOSE, URINE NEGATIVE (NEGATIVE); KETONES,URINE NEGATIVE (NEGATIVE); LEUKOCYTE ESTERASE,URINE NEGATIVE (NEGATIVE); NITRITE,URINE NEGATIVE (NEGATIVE); PROTEIN,URINE 30 mg/dL (NEGATIVE); URINE SPECIFIC GRAVITY 1.009; UROBILINOGEN,URINE NEGATIVE mg/dL (<2.0)
[2019-05-14] MEDS ORDERED: MAGNESIUM HYDROXIDE SUSP 30 ML UDCUP PO PRN (11:56)
[2019-05-14] MEDS ORDERED: ONDANSETRON HCL INJ/PF 4 MG/2 ML SDV IV PRN (11:56)
[2019-05-14] MEDS ORDERED: ACETAMINOPHEN 325 MG TABLET PO PRN (11:56)
[2019-05-14 11:57] LABS: ACETAMINOPHEN < 10 ug/mL (10-30); ALCOHOL < 10 mg/dL (NONE DETECTED); SALICYLATE < 1.0 mg/dL (2.0-20.0)
[2019-05-14] MEDS ORDERED: LORAZEPAM INJ 2 MG/1 ML VIAL IV PRN (12:02)
[2019-05-14 12:19] LABS: INTERNATIONAL RATION (INR) 1.34; PROTHROMBIN TIME 16.7 SEC (11.4-15.4)
[2019-05-14 12:20] LABS: PARTIAL THROMBOPLASTIN TIME 32.7 SEC (23.5-35.8)
[2019-05-14 12:28] LABS: URINE AMPHETAMINES SCREEN NEGATIVE; URINE BARBITURATES SCREEN NEGATIVE; URINE BENZODIAZEPINES SCREEN NEGATIVE; URINE COCAINE SCREEN NEGATIVE; URINE MARIJUANA (THC) SCREEN NEGATIVE; URINE METHADONE SCREEN NEGATIVE; URINE PHENCYCLIDINE SCREEN NEGATIVE
--- NOTE | 2019-05-14 13:04 | EKG REPORT ---
SEVERITY:- ABNORMAL ECG - SINUS TACHYCARDIA MULTIFORM VENTRICULAR PREMATURE COMPLEXES PROBABLE LEFT ATRIAL ABNORMALITY IVCD, CONSIDER ATYPICAL LBBB : Confirmed by: Carola Smith 14-May-2019 13:02:38
--- NOTE | 2019-05-14 15:51 | RADIOLOGY REPORT (SQ) ---
EXAM DESCRIPTION: MRI HEAD WITHOUT COMPLETED DATE/TIME: 05/14/2019 3:12 pm REASON FOR STUDY: new onset seizure COMPARISON: CT brain 08/21/2018, 12/19/2018, 05/14/2019 MRI brain 12/20/2018 TECHNIQUE: Multiplanar imaging includes non-contrasted T1, T2, FLAIR, and diffusion with ADC map seq uences. Images stored on PACS. LIMITATIONS: None. FINDINGS: ANATOMY: No developmental anomalies. Normal vascular flow voids. Pituitary fossa normal. CSF SPACES: Normal in size and contour. No hemorrhage. CEREBRUM: Diffusion-weighted images are negative for acute ischemic change. Patient has a large left frontal cortical and subcortical white matter infarct extending into the pos terior limb internal capsule with atrophy of the left cerebral peduncle. Moderate bifrontal and bipa rietal chronic small vessel ischemic change. Old bilateral occipital cortical infarcts. Old left th alamus infarct. No acute intracranial hemorrhage, mass effect, or midline shift. POSTERIOR FOSSA: Mild chronic pontine small vessel ischemic change. No hemorrhage. No edema, masses o r mass effect. Internal auditory canals, cerebello-pontine angles, mastoids normal. DIFFUSION IMAGING: Negative for acute or sub-acute infarction. ORBITS: No masses. Globes normal. PARANASAL SINUSES: No fluid levels. Mucosa normal. OTHER: No other significant finding. IMPRESSION: No acute findings. Multiple old infarcts as above. EVIDENCE OF ACUTE STROKE: NO. TECHNICAL DOCUMENTATION: JOB ID: [id number] [employer]- All Rights Reserved Reading location - IP/workstation name: [facility]
[2019-05-14] MEDS: HYDRALAZINE HCL 10 MG TABLET PO SCH (17:44)
[2019-05-14] MEDS: BACLOFEN 10 MG TABLET PO SCH (17:44)
[2019-05-14] MEDS ORDERED: HYDRALAZINE HCL INJ/PF 20 MG/1 ML SDV IV PRN (17:51)
--- NOTE | 2019-05-14 17:55 | PDOC H&P ---
History of Present Illness Admission Date/PCP: 05/14/19 11:46 ADAM MERIDA MD Patient complains of: Unwitnessed fall, seizure-like activity History of Present Illness: OLYA RACHEL is a 59 year old male with a past medical history of non-STEMI, chronic renal CKD, multiple previous ischemic CVAs, hypertension, CHF, nonverbal at baseline utilizes PEG tube for feedings and was found outside in prone position and minimally responsive by a neighbor. Upon arrival to the emergency department, he was noted to have 30 seconds of seizure-like activity followed by postictal state. There is no known history of seizure activity. However, family members have been unreachable; have not been able to verify more recent past medical history. Of note, neighbors informed EMS that the patient is often left unattended for several hours at a time. Evaluation in the emergency department revealed low-grade temperature (99.1), hypertension (180s/103) tachypnea (21) unremarkable CBC, mildly elevated INR (1.34), [place] [address]) normal troponin, negative urinalysis negative tox screen. EKG showed sinus tachycardia with LBBB (unchanged from prior), head and cervical spine CT were negative (other than multiple previous CVAs). Follow-up MRI was negative for acute findings but did demonstrate multiple old infarcts. Plan he was provided a loading dose of IV Keppra and referred to the hospitalist service for admission and management of the above-stated complaints of findings. Past Medical History Cardiac Medical History: Reports: Congestive Heart Failure, Myocardial Infarction, Hypertension Denies: Atrial Fibrillation, Coronary Artery Disease, Hyperlipidema, Peripheral Vascular Disease, Heart Murmur Pulmonary Medical History: Reports: None EENT Medical History: Reports: None Neurological Medical History: Reports: Ischemic CVA Denies: Seizures Endocrine Medical History: Reports: None Renal/ Medical History: Reports: Chronic Kidney Disease Malignancy Medical History: Reports: None GI Medical History: Reports: None Musculoskeltal Medical History: Reports: Arthritis - hips Denies: Gout Skin Medical History: Reports: None Psychiatric Medical History: Denies: Bipolar Disorder, Depression, Post Traumatic Stress Disorder Hematology: Denies: Anemia, Sickle Cell Disease, Bleeding Tendencies Infectious Medical History: Reports: None Past Surgical History Past Surgical History: Reports: Other - PEG tube Denies: Pacemaker Social History Information Source: [facility] Records Lives with: Family Smoking Status: Former Smoker Frequency of Alcohol Use: None Hx Recreational Drug Use: No Drugs: None Hx Prescription Drug Abuse: No - Advance Directive Resuscitation Status: Full Code Surrogate healthcare decision maker:: Unclear; patient is nonverbal at baseline. No family members present Family History Family History: Unable to verify due to patient's nonverbal status Parental Family History Reviewed: No - Unable to obtain Children Family History Reviewed: No Sibling(s) Family History Reviewed.: No Medication/Allergy Home Medications: Amlodipine Besylate [Norvasc 2.5 mg Tablet] 2.5 mg PO DAILY 05/14/19 Apixaban [Eliquis 2.5 mg Tablet] 2.5 mg PO Q12 05/14/19 Baclofen [Baclofen 10 mg Tablet] 5 mg PO TID 05/14/19 Carvedilol 25 mg PO BID 05/14/19 Hydralazine HCl [Apresoline 10 mg Tablet] 10 mg PO QID 05/14/19 Lisinopril [Zestril] 40 mg PO DAILY 05/14/19 Allergies/Adverse Reactions: lisinopril Allergy (Verified 03/09/18 09:47) Review of Systems ROS unobtainable: Due to mental status Physical Exam Vital Signs: Temp Pulse Resp BP Pulse Ox 99.1 F 104 H 16 147/80 H 97 05/14/19 15:47 05/14/19 15:47 05/14/19 15:47 05/14/19 15:47 05/14/19 15:47 Intake & Output 05/13/19 05/14/19 05/15/19 06:59 06:59 06:59 Intake Total 100 Balance 100 Weight 70.8 kg General appearance: PRESENT: no acute distress, disheveled, thin, well-nourished Head exam: PRESENT: normocephalic, other - Dried blood to patient's right cheek/chin Eye exam: PRESENT: conjunctival injection, EOMI, PERRLA. ABSENT: scleral icterus Ear exam: PRESENT: normal external ear exam Mouth exam: PRESENT: moist, tongue midline, other - Dried blood Teeth exam: PRESENT: poor dentation Neck exam: ABSENT: carotid bruit, JVD, lymphadenopathy, thyromegaly Respiratory exam: PRESENT: clear to auscultation ubaldo, symmetrical, unlabored. ABSENT: rales, rhonchi, wheezes Cardiovascular exam: PRESENT: RRR, +S1, +S2, tachycardia - HR 90-110. ABSENT: d iastolic murmur, rubs, systolic murmur Pulses: PRESENT: normal dorsalis pedis pul Vascular exam: PRESENT: normal capillary refill GI/Abdominal exam: PRESENT: normal bowel sounds, soft, other - PEG tube. ABSENT: distended, guarding, mass, organolmegaly, rebound, tenderness Rectal exam: PRESENT: deferred Extremities exam: PRESENT: full ROM. ABSENT: calf tenderness, clubbing, pedal edema Neurological exam: PRESENT: alert, awake, CN II-XII grossly intact, other - Right-sided weakness, nonverbal, does make eye contact and attempts to answer questions, does follow commands. ABSENT: motor sensory deficit Skin exam: PRESENT: dry, intact, warm. ABSENT: cyanosis, rash Results Laboratory Results: 05/14/19 09:45 05/14/19 09:45 05/14/19 05/14/19 05/14/19 09:45 09:45 10:32 WBC 8.4 RBC 4.67 Hgb 13.8 Hct 42.8 MCV 91 MCH 29.5 MCHC 32.2 RDW 16.1 H Plt Count 157 Seg Neutrophils % 66.9 Sodium 143.7 Potassium 4.3 Chloride 107 Carbon Dioxide 19 L Anion Gap 18 BUN 29 H Creatinine 2.40 H Est GFR ( Amer) 33 L Glucose 118 H Calcium 9.4 Total Bilirubin 0.6 AST 29 Alkaline Phosphatase 148 H Total Protein 8.5 H Albumin 4.2 Urine Color STRAW Urine Appearance CLEAR Urine pH 6.0 Ur Specific Pierson 1.009 Urine Protein 30 H Urine Glucose (UA) NEGATIVE Urine Ketones NEGATIVE Urine Blood NEGATIVE Urine Nitrite NEGATIVE Ur Leukocyte Esterase NEGATIVE 05/14/19 05/14/19 05/14/19 09:45 09:45 09:45 Creatine Kinase 233 H CK-MB (CK-2) 3.71 Troponin I 0.022 Impressions: Head MRI 05/14/19 00:00 IMPRESSION: No acute findings. Multiple old infarcts as above. EVIDENCE OF ACUTE STROKE: NO. Head CT 05/14/19 09:26 IMPRESSION: Multiple old infarcts. No acute findings. EVIDENCE OF ACUTE STROKE: NO. Cervical Spine CT 05/14/19 09:31 IMPRESSION: No acute fracture or malalignment of the cervical spine. Assessment and Plan - Diagnosis (1) Seizure Is this a current diagnosis for this admission?: Yes Plan: 30 seconds of seizure activity noted upon arrival to the emergency department after being found down, outside, for an unknown period of time by neighbors. CT and MRI demonstrate old CVAs; no acute findings. EEG pending. Chemistry are unremarkable. UDS and tox screen are negative. No known history of the same. Patient is admitted to [facility] on continuous cardiac telemetry. He received a loading dose of IV Keppra in the ED; will continue IV Keppra. Seizure and aspiration precautions. Ativan as needed. (2) Postictal state Is this a current diagnosis for this admission?: Yes Plan: Resolved. Patient is now alert, makes eye contact, attempts to answer questions (although is nonverbal at baseline and states random words in response), does follow simple one-step directions. (3) Acute encephalopathy Is this a current diagnosis for this admission?: Yes Plan: Secondary to #1 and 2; in the setting of expressive aphasia related to prior CVA. Head CT and MRI today are reassuring. We will provide supportive care. (4) Chronic kidney disease (CKD) Qualifiers: Chronic kidney disease stage: stage 4 (severe) Qualified Code(s): N18.4 - Chronic kidney disease, stage 4 (severe) Is this a current diagnosis for this admission?: Yes Plan: At baseline. Continue maintenance IV fluids. Avoid nephrotoxic medications as able. Follow-up chemistry. (5) Hypertension Qualifiers: Hypertension type: essential hypertension Qualified Code(s): I10 - Essential (primary) hypertension Is this a current diagnosis for this admission?: Yes Plan: Resume the patient's home dose amlodipine, carvedilol, hydralazine, and Toprol. We will provide IV hydralazine as needed for blood pressure control. (6) History of CVA (cerebrovascular accident) Is this a current diagnosis for this admission?: Yes Plan: With right-sided deficits, expressive aphasia, requirement for PEG tube for feedings. - Time Time Spent with patient: 35 or more minutes Medications reviewed and adjusted accordingly: Yes Anticipated discharge: SNF - Inpatient Certification Based on my medical assessment, after consideration of the patient's comorbidities, presenting symptoms, or acuity I expect that the services needed warrant INPATIENT care.: Yes I certify that my determination is in accordance with my understanding of Medicare's requirements for reasonable and necessary INPATIENT services [42 CFR 412.3e].: Yes Medical Necessity: Need Close Monitoring Due to Risk of Patient Decompensation, Need For IV Fluids, Need For Continuous Telemetry Monitoring, Need for Neurological Checks, Risk of Complication if Not Cared For in Hospital, Risk of Diagnosis Which Will Require Inpatient Eval/Care/Monitoring
[2019-05-14] MEDS ORDERED: (PENDING PHARMACY ID) (Carvedilol [Carvedilol] 25 MG) PO SCH (18:00)
[2019-05-14] MEDS: NORMAL SALINE 1000 ML 1,000 ML IV PRN (18:16)
[2019-05-14] MEDS ORDERED: LEVETIRACETAM 500 MG/NACL-ISO 500 MG/100 ML RTUPB IV SCH (22:00)
[2019-05-14] MEDS: ATORVASTATIN CALCIUM 10 MG TABLET PO SCH (23:00)
[2019-05-14] MEDS: FAMOTIDINE INJ/PF 20 MG/2 ML SDV IV SCH (23:00)
[2019-05-14] MEDS: CARVEDILOL 12.5 MG TABLET PO SCH (23:00)
[2019-05-15] MEDS ORDERED: LEVETIRACETAM 500 MG/NACL-ISO 500 MG/100 ML RTUPB IV ONE (00:05)
[2019-05-15] MEDS: HYDRALAZINE HCL 10 MG TABLET PO SCH ×4 (00:30→18:11)
[2019-05-15] MEDS: NORMAL SALINE 1000 ML 1,000 ML IV PRN ×3 (02:36→20:18)
[2019-05-15 06:42] LABS: ANION GAP 6 (5-19); BLOOD UREA NITROGEN 26 mg/dL (7-20); CALCIUM 8.6 mg/dL (8.4-10.2); CARBON DIOXIDE 20 mmol/L (22-30); CHLORIDE 111 mmol/L (98-107); CHOLESTEROL 113.36 mg/dL (0-200); GLUCOSE 84 mg/dL (75-110); POTASSIUM 4.2 mmol/L (3.6-5.0); TRIGLYCERIDES 62 mg/dL (<150)
[2019-05-15 06:50] LABS: HEMATOCRIT 33.5 % (37.9-51.0); MEAN CORPUSCULAR HEMOGLOBIN 29.4 pg (27.0-33.4); MEAN CORPUSCULAR VOLUME 89 fl (80-97); PLATELET COUNT 149 10^3/uL (150-450); RED BLOOD COUNT 3.76 10^6/uL (4.35-5.55); RED CELL DISTRIBUTION WIDTH 15.4 % (11.5-14.0); WHITE BLOOD COUNT 5.7 10^3/uL (4.0-10.5)
[2019-05-15 06:52] LABS: HEMOGLOBIN 11.1 g/dL (13.5-17.0)
[2019-05-15 06:53] LABS: DIRECT LDL 40 mg/dL (<100)
[2019-05-15] MEDS: LISINOPRIL 10 MG TABLET PO SCH (09:53)
[2019-05-15] MEDS: DOCUSATE SODIUM 100 MG CAPSULE PO SCH (09:54)
[2019-05-15] MEDS: FAMOTIDINE INJ/PF 20 MG/2 ML SDV IV SCH ×2 (09:54→21:48)
[2019-05-15] MEDS: CARVEDILOL 12.5 MG TABLET PO SCH ×2 (09:54→21:48)
[2019-05-15] MEDS: BACLOFEN 10 MG TABLET PO SCH ×3 (09:54→18:11)
[2019-05-15] MEDS: LEVETIRACETAM 500 MG TABLET PO SCH ×2 (09:54→21:48)
[2019-05-15] MEDS ORDERED: (PENDING PHARMACY ID) (Lisinopril [Zestril] 40 MG) PO SCH (10:00)
[2019-05-15] MEDS ORDERED: DOCUSATE SODIUM 100 MG/10 ML UDC PO SCH (10:00)
[2019-05-15] MEDS ORDERED: AMLODIPINE BESYLATE 2.5 MG TABLET PO SCH (10:00)
--- NOTE | 2019-05-15 17:52 | PDOC PROGRESS REPORT ---
Subjective Progress Note for:: 05/15/19 Subjective:: OLYA RACHEL is a 59 year old male with a past medical history of non-STEMI, chronic renal CKD, multiple previous ischemic CVAs, hypertension, CHF, with expressive aphasia at baseline who was admitted 05/14/19 for altered mental status and seizure-like activity noted by ED personnel. Patient was seen on morning rounds. He was found resting in bed, comfortably, on room air. He continues to have expressive aphasia though is able to communicate quite well with me today. He tells me that he typically walks with a cane. He reports that he was able to eat his breakfast today without difficulty. He tells me he does not remember coming to the ED yesterday. He denies fever, chills, chest pain, palpitations, dyspnea, cough, abdominal pain, nausea and vomiting. He has no questions no concerns. No concerns per nursing. Reason For Visit: AMS, NEW ONSET SEIZURE Physical Exam Vital Signs: Temp Pulse Resp BP Pulse Ox 97.4 F 63 16 156/78 H 100 05/15/19 16:53 05/15/19 16:53 05/15/19 16:53 05/15/19 16:53 05/15/19 16:53 Intake & Output 05/14/19 05/15/19 05/16/19 06:59 06:59 06:59 Intake Total 1950 Balance 1950 Weight 61.4 kg General appearance: PRESENT: no acute distress, cooperative, thin, well-d eveloped, well-nourished Head exam: PRESENT: atraumatic, normocephalic Eye exam: PRESENT: conjunctiva pink, EOMI, PERRLA. ABSENT: scleral icterus Ear exam: PRESENT: normal external ear exam Mouth exam: PRESENT: moist, tongue midline Teeth exam: PRESENT: poor dentation Respiratory exam: PRESENT: clear to auscultation ubaldo, symmetrical, unlabored. A BSENT: rales, rhonchi, wheezes Cardiovascular exam: PRESENT: RRR, +S1, +S2. ABSENT: diastolic murmur, rubs, systolic murmur Pulses: PRESENT: normal dorsalis pedis pul Vascular exam: PRESENT: normal capillary refill GI/Abdominal exam: PRESENT: normal bowel sounds, soft, other - PEG. ABSENT: distended, guarding, mass, organolmegaly, rebound, tenderness Rectal exam: PRESENT: deferred Extremities exam: PRESENT: full ROM. ABSENT: calf tenderness, clubbing, pedal edema Neurological exam: PRESENT: alert, awake, oriented to person, oriented to place, oriented to situation, CN II-XII grossly intact, aphasic. ABSENT: motor sensory deficit Psychiatric exam: PRESENT: appropriate affect, normal mood. ABSENT: homicidal ideation, suicidal ideation Skin exam: PRESENT: dry, intact, warm. ABSENT: cyanosis, rash Results Laboratory Results: 05/15/19 06:00 05/15/19 06:00 05/15/19 05/15/19 06:00 06:00 WBC 5.7 RBC 3.76 L Hgb 11.1 L D Hct 33.5 L MCV 89 MCH 29.4 MCHC 33.0 RDW 15.4 H Plt Count 149 L Sodium 137.1 Potassium 4.2 Chloride 111 H Carbon Dioxide 20 L Anion Gap 6 BUN 26 H Creatinine 2.03 H Est GFR ( Amer) 41 L Glucose 84 Calcium 8.6 Triglycerides 62 Cholesterol 113.36 LDL Cholesterol Direct 40 VLDL Cholesterol 12.0 HDL Cholesterol 44 05/14/19 05/14/19 05/14/19 09:45 09:45 09:45 Creatine Kinase 233 H CK-MB (CK-2) 3.71 Troponin I 0.022 Impressions: Head MRI 05/14/19 00:00 IMPRESSION: No acute findings. Multiple old infarcts as above. EVIDENCE OF ACUTE STROKE: NO. Head CT 05/14/19 09:26 IMPRESSION: Multiple old infarcts. No acute findings. EVIDENCE OF ACUTE STROKE: NO. Cervical Spine CT 05/14/19 09:31 IMPRESSION: No acute fracture or malalignment of the cervical spine. Assessment and Plan - Diagnosis (1) Seizure Is this a current diagnosis for this admission?: Yes Plan: 30 seconds of seizure activity noted upon arrival to the emergency department after being found down, outside, for an unknown period of time by neighbors. CT and MRI demonstrate old CVAs; no acute findings. EEG pending; unfortunately not available unit mid-week. Will need outpatient neurology follow up. Chemistry are unremarkable. UDS and tox screen are negative. No known history of the same. Patient is admitted to [facility] on continuous cardiac telemetry. He received a loading dose of IV Keppra in the ED and continued on IV Keppra. Will transition to p.o Keppra today. Seizure and aspiration precautions. Ativan as needed. (2) Postictal state Is this a current diagnosis for this admission?: Yes Plan: Resolved. (3) Acute encephalopathy Is this a current diagnosis for this admission?: Yes Plan: Resolved. Secondary to #1 and 2; in the setting of expressive aphasia related to prior CVA. Head CT and MRI today are reassuring. We will provide supportive care. (4) Chronic kidney disease (CKD) Qualifiers: Chronic kidney disease stage: stage 4 (severe) Qualified Code(s): N18.4 - Chronic kidney disease, stage 4 (severe) Is this a current diagnosis for this admission?: Yes Plan: At baseline. Continue maintenance IV fluids. Avoid nephrotoxic medications as able. Follow-up chemistry. (5) Hypertension Qualifiers: Hypertension type: essential hypertension Qualified Code(s): I10 - Essential (primary) hypertension Is this a current diagnosis for this admission?: Yes Plan: Resume the patient's home dose amlodipine, carvedilol, hydralazine, and Toprol. We will provide IV hydralazine as needed for blood pressure control. (6) History of CVA (cerebrovascular accident) Is this a current diagnosis for this admission?: Yes Plan: With right-sided deficits, expressive aphasia, requirement for PEG tube for feedings. - Time Time Spent with patient: 25-34 minutes Medications reviewed and adjusted accordingly: Yes Anticipated discharge: Home with Homehealth Within: within 24 hours
[2019-05-15] MEDS: ATORVASTATIN CALCIUM 10 MG TABLET PO SCH (21:48)
[2019-05-16] MEDS: HYDRALAZINE HCL 10 MG TABLET PO SCH ×3 (01:05→14:20)
[2019-05-16] MEDS: LISINOPRIL 10 MG TABLET PO SCH (09:49)
[2019-05-16] MEDS: BACLOFEN 10 MG TABLET PO SCH ×2 (09:49→14:20)
[2019-05-16] MEDS: DOCUSATE SODIUM 100 MG CAPSULE PO SCH (09:50)
[2019-05-16] MEDS: FAMOTIDINE INJ/PF 20 MG/2 ML SDV IV SCH (09:50)
[2019-05-16] MEDS: CARVEDILOL 12.5 MG TABLET PO SCH (09:50)
[2019-05-16] MEDS: LEVETIRACETAM 500 MG TABLET PO SCH (09:55)
[2019-05-16] MEDS ORDERED: AMLODIPINE BESYLATE 2.5 MG TABLET PO SCH (10:00)
[2019-05-16] MEDS ORDERED: AMLODIPINE BESYLATE 5 MG TABLET PO SCH (10:00)
[2019-05-16] MEDS ORDERED: APIXABAN 2.5 MG TABLET PO SCH (10:00)
--- NOTE | 2019-05-16 11:47 | PDOC DISCHARGE SUMMARY ---
Impression - Admit/DC Date/PCP Admission Date/Primary Care Provider: 05/14/19 11:46 ADAM MERIDA MD Discharge Date: 05/16/19 - Discharge Diagnosis (1) Seizure Is this a current diagnosis for this admission?: Yes (2) Postictal state Is this a current diagnosis for this admission?: Yes (3) Acute encephalopathy Is this a current diagnosis for this admission?: Yes (4) Chronic kidney disease (CKD) Is this a current diagnosis for this admission?: Yes (5) Hypertension Is this a current diagnosis for this admission?: Yes (6) History of CVA (cerebrovascular accident) Is this a current diagnosis for this admission?: Yes - Additional Information Resuscitation Status: Full Code Discharge Diet: Cardiac Discharge Activity: Activity As Tolerated, Balance Activity w/Rest, Slowly Increase Activity Referrals: ADAM MERIDA MD [Primary Care Provider] - (Follow up within 1 week.) JASON ELLIS MD [NO LOCAL MD] - (Follow up at earliest available appointment. Previous strokes, now with new onset seizures.) Prescriptions: Levetiracetam [Keppra 500 mg Tablet] 500 mg PO Q12 #60 tablet Atorvastatin Calcium [Lipitor 10 mg Tablet] 10 mg PO QHS #60 tablet Amlodipine Besylate [Norvasc 5 mg Tablet] 5 mg PO Q12 #60 tablet Home Medications: Apixaban [Eliquis 2.5 mg Tablet] 2.5 mg PO Q12 05/14/19 Baclofen [Baclofen 10 mg Tablet] 5 mg PO TID 05/14/19 Carvedilol 25 mg PO BID 05/14/19 Hydralazine HCl [Apresoline 10 mg Tablet] 10 mg PO QID 05/14/19 Lisinopril [Zestril] 40 mg PO DAILY 05/14/19 Acetaminophen [Tylenol 325 mg Tablet] 650 mg PO Q4HP PRN tablet 05/16/19 Amlodipine Besylate [Norvasc 5 mg Tablet] 5 mg PO Q12 #60 tablet 05/16/19 Atorvastatin Calcium [Lipitor 10 mg Tablet] 10 mg PO QHS #60 tablet 05/16/19 Levetiracetam [Keppra 500 mg Tablet] 500 mg PO Q12 #60 tablet 05/16/19 History of Present Illiness History of Present Illness: OLYA RACHEL is a 59 year old male with a past medical history of non-STEMI, chronic renal CKD, multiple previous ischemic CVAs, hypertension, CHF, nonverbal at baseline utilizes PEG tube for feedings and was found outside in prone position and minimally responsive by a neighbor. Upon arrival to the emergency department, he was noted to have 30 seconds of seizure-like activity followed by postictal state. There is no known history of seizure activity. However, family members have been unreachable; have not been able to verify more recent past medical history. Of note, neighbors informed EMS that the patient is often left unattended for several hours at a time. Evaluation in the emergency department revealed low-grade temperature (99.1), hypertension (180s/103) tachypnea (21) unremarkable CBC, mildly elevated INR (1.34), [place] [id number]) normal troponin, negative urinalysis negative tox screen. EKG showed sinus tachycardia with LBBB (unchanged from prior), head and cervical spine CT were negative (other than multiple previous CVAs). Follow-up MRI was negative for acute findings but did demonstrate multiple old infarcts. Plan he was provided a loading dose of IV Keppra and referred to the hospitalist service for admission and management of the above-stated complaints of findings. Hospital Course Hospital Course: (1) Seizure 30 seconds of seizure activity noted upon arrival to the emergency department after being found down, outside, for an unknown period of time by neighbors. CT and MRI demonstrate old CVAs; no acute findings. EEG pending; unfortunately not available unit mid-week. Will need outpatient neurology follow up. Chemistry are unremarkable. UDS and tox screen are negative. No known history of the same. Patient was admitted to [facility] on continuous cardiac telemetry. No abnormal cardiac rhythms noted. He received a loading dose of IV Keppra in the ED and continued on IV Keppra x 24hrs. He was then transitioned to p.o Keppra. He has had no further seizure activity. Recommend outpatient neurology follow-up. (2) Postictal state Resolved. (3) Acute encephalopathy Resolved. Secondary to #1 and 2; in the setting of expressive aphasia related to prior CVA. Head CT and MRI today are negative for acute findings. (4) Chronic kidney disease (CKD) At baseline. (5) Hypertension The patient's amlodipine was increased to 5 mg twice daily. His remaining home regimen of carvedilol, lisinopril, and hydralazine remain unchanged. (6) History of CVA (cerebrovascular accident) With right-sided deficits, expressive aphasia Physical Exam Vital Signs: Temp Pulse Resp BP Pulse Ox 97.5 F 81 16 147/60 H 98 05/16/19 08:38 05/16/19 08:38 05/16/19 08:38 05/16/19 08:38 05/16/19 08:38 Intake & Output 05/15/19 05/16/19 05/17/19 06:59 06:59 06:59 Intake Total 1950 3720 Balance 1950 3720 Weight 61.4 kg 63.3 kg General appearance: PRESENT: no acute distress, cooperative, thin, well- developed, well-nourished Head exam: PRESENT: atraumatic, normocephalic Eye exam: PRESENT: conjunctiva pink, EOMI, PERRLA. ABSENT: scleral icterus Ear exam: PRESENT: normal external ear exam Mouth exam: PRESENT: moist, tongue midline Teeth exam: PRESENT: poor dentation Neck exam: ABSENT: carotid bruit, JVD, lymphadenopathy, thyromegaly Respiratory exam: PRESENT: clear to auscultation ubaldo, symmetrical, unlabored. ABSENT: rales, rhonchi, wheezes Cardiovascular exam: PRESENT: RRR, +S1, +S2. ABSENT: diastolic murmur, rubs, systolic murmur Pulses: PRESENT: normal dorsalis pedis pul Vascular exam: PRESENT: normal capillary refill GI/Abdominal exam: PRESENT: normal bowel sounds, soft, other - PEG. ABSENT: distended, guarding, mass, organolmegaly, rebound, tenderness Rectal exam: PRESENT: deferred Extremities exam: PRESENT: full ROM. ABSENT: calf tenderness, clubbing, pedal edema Musculoskeletal exam: PRESENT: ambulatory Neurological exam: PRESENT: alert, awake, oriented to person, oriented to place, oriented to situation, CN II-XII grossly intact, aphasic - Expressive aphasia; communicates well, other - Baseline right sided weakness. ABSENT: motor sensory deficit Psychiatric exam: PRESENT: appropriate affect, normal mood. ABSENT: homicidal ideation, suicidal ideation Skin exam: PRESENT: dry, intact, warm. ABSENT: cyanosis, rash Results Laboratory Results: WBC 5.7 10^3/uL (4.0-10.5) 05/15/19 06:00 RBC 3.76 10^6/uL (4.35-5.55) L 05/15/19 06:00 Hgb 11.1 g/dL (13.5-17.0) L D 05/15/19 06:00 Hct 33.5 % (37.9-51.0) L 05/15/19 06:00 MCV 89 fl (80-97) 05/15/19 06:00 MCH 29.4 pg (27.0-33.4) 05/15/19 06:00 MCHC 33.0 g/dL (32.0-36.0) 05/15/19 06:00 RDW 15.4 % (11.5-14.0) H 05/15/19 06:00 Plt Count 149 10^3/uL (150-450) L 05/15/19 06:00 Lymph % (Auto) 23.1 % (13-45) 05/14/19 09:45 Mckinley % (Auto) 7.8 % (3-13) 05/14/19 09:45 Eos % (Auto) 1.4 % (0-6) 05/14/19 09:45 Baso % (Auto) 0.8 % (0-2) 05/14/19 09:45 Absolute Neuts (auto) 5.6 10^3/uL (1.7-8.2) 05/14/19 09:45 Absolute Lymphs (auto) 1.9 10^3/uL (0.5-4.7) 05/14/19 09:45 Absolute Monos (auto) 0.7 10^3/uL (0.1-1.4) 05/14/19 09:45 Absolute Eos (auto) 0.1 10^3/uL (0.0-0.6) 05/14/19 09:45 Absolute Basos (auto) 0.1 10^3/uL (0.0-0.2) 05/14/19 09:45 Seg Neutrophils % 66.9 % (42-78) 05/14/19 09:45 PT 16.7 SEC (11.4-15.4) H 05/14/19 09:45 INR 1.34 05/14/19 09:45 APTT 32.7 SEC (23.5-35.8) 05/14/19 09:45 Sodium 137.1 mmol/L (137-145) 05/15/19 06:00 Potassium 4.2 mmol/L (3.6-5.0) 05/15/19 06:00 Chloride 111 mmol/L (98-107) H 05/15/19 06:00 Carbon Dioxide 20 mmol/L (22-30) L 05/15/19 06:00 Anion Gap 6 (5-19) 05/15/19 06:00 BUN 26 mg/dL (7-20) H 05/15/19 06:00 Creatinine 2.03 mg/dL (0.52-1.25) H 05/15/19 06:00 Est GFR ( Amer) 41 (>60) L 05/15/19 06:00 Est GFR (MDRD) Non-Af 34 (>60) L 05/15/19 06:00 Glucose 84 mg/dL (75-110) 05/15/19 06:00 Hemoglobin A1c % 5.3 % (4.7-6.0) 05/15/19 06:00 Calcium 8.6 mg/dL (8.4-10.2) 05/15/19 06:00 Total Bilirubin 0.6 mg/dL (0.2-1.3) 05/14/19 09:45 Direct Bilirubin 0.4 mg/dL (0.0-0.4) 05/14/19 09:45 Neonat Total Bilirubin Not Reportable 05/14/19 09:45 Neonat Direct Bilirubin Not Reportable 05/14/19 09:45 Neonat Indirect Bili Not Reportable 05/14/19 09:45 AST 29 U/L (17-59) 05/14/19 09:45 ALT 26 U/L (<50) 05/14/19 09:45 Alkaline Phosphatase 148 U/L (38-126) H 05/14/19 09:45 Creatine Kinase 233 U/L (55-170) H 05/14/19 09:45 CK-MB (CK-2) 3.71 ng/mL (<4.55) 05/14/19 09:45 Troponin I 0.022 ng/mL 05/14/19 09:45 Total Protein 8.5 g/dL (6.3-8.2) H 05/14/19 09:45 Albumin 4.2 g/dL (3.5-5.0) 05/14/19 09:45 Triglycerides 62 mg/dL (<150) 05/15/19 06:00 Cholesterol 113.36 mg/dL (0-200) 05/15/19 06:00 LDL Cholesterol Direct 40 mg/dL (<100) 05/15/19 06:00 VLDL Cholesterol 12.0 mg/dL (10-31) 05/15/19 06:00 HDL Cholesterol 44 mg/dL (>40) 05/15/19 06:00 Urine Color STRAW 05/14/19 10:32 Urine Appearance CLEAR 05/14/19 10:32 Urine pH 6.0 (5.0-9.0) 05/14/19 10:32 Ur Specific Percy 1.009 05/14/19 10:32 Urine Protein 30 mg/dL (NEGATIVE) H 05/14/19 10:32 Urine Glucose (UA) NEGATIVE mg/dL (NEGATIVE) 05/14/19 10:32 Urine Ketones NEGATIVE mg/dL (NEGATIVE) 05/14/19 10:32 Urine Blood NEGATIVE (NEGATIVE) 05/14/19 10:32 Urine Nitrite NEGATIVE (NEGATIVE) 05/14/19 10:32 Urine Bilirubin NEGATIVE (NEGATIVE) 05/14/19 10:32 Urine Urobilinogen NEGATIVE mg/dL (<2.0) 05/14/19 10:32 Ur Leukocyte Esterase NEGATIVE (NEGATIVE) 05/14/19 10:32 Urine Mucus (Auto) RARE /LPF 05/14/19 10:32 Urine Ascorbic Acid NEGATIVE (NEGATIVE) 05/14/19 10:32 Salicylates < 1.0 mg/dL (2.0-20.0) L 05/14/19 09:45 Urine Opiates Screen NEGATIVE 05/14/19 10:32 Urine Methadone Screen NEGATIVE 05/14/19 10:32 Acetaminophen < 10 ug/mL (10-30) L 05/14/19 09:45 Ur Barbiturates Screen NEGATIVE 05/14/19 10:32 Ur Phencyclidine Scrn NEGATIVE 05/14/19 10:32 Ur Amphetamines Screen NEGATIVE 05/14/19 10:32 U Benzodiazepines Scrn NEGATIVE 05/14/19 10:32 Urine Cocaine Screen NEGATIVE 05/14/19 10:32 U Marijuana (THC) Screen NEGATIVE 05/14/19 10:32 Serum Alcohol < 10 mg/dL (NONE DETECTED) 05/14/19 09:45 05/14/19 05/14/19 09:45 09:45 CK-MB (CK-2) 3.71 Troponin I 0.022 Impressions: Head MRI 05/14/19 00:00 IMPRESSION: No acute findings. Multiple old infarcts as above. EVIDENCE OF ACUTE STROKE: NO. Head CT 05/14/19 09:26 IMPRESSION: Multiple old infarcts. No acute findings. EVIDENCE OF ACUTE STROKE: NO. Cervical Spine CT 05/14/19 09:31 IMPRESSION: No acute fracture or malalignment of the cervical spine. Plan Plan of Treatment: Patient is discharged home in the care of family members with home health services. He is advised to follow-up with his primary care provider within 1 week. He is instructed to follow-up with Dr. Ellis at the earliest available appointment. He is instructed to take his medications as prescribed. Return to the emergency department as needed for concerning symptoms. Time Spent: Greater than 30 Minutes Stroke Is this a Stroke Patient?: No Acute Heart Failure - Is this a Heart Failure Patient?: No
[2019-05-16 13:35] VITALS: BP 147/80
== END 2019-05-16 15:05 | disposition home health service (06) | DRG 101 ==
LOC: ER 09:03 → EH 11:46 → 3W 14:03
PROVIDERS: ADMIT Internal Medicine; ATTEND Internal Medicine
DX: R56.9 Unspecified convulsions (principal); I13.0 Hypertensive heart and chronic kidney disease with heart failure and stage 1 through stage 4 chronic kidney disease, or unspecified chronic kidney disease; N18.4 Chronic kidney disease, stage 4 (severe); R00.0 Tachycardia, unspecified; I50.9 Heart failure, unspecified; M16.0 Bilateral primary osteoarthritis of hip; I44.7 Left bundle-branch block, unspecified; I25.2 Old myocardial infarction; Z79.01 Long term (current) use of anticoagulants; Z88.8 Allergy status to other drugs, medicaments and biological substances; I69.320 Aphasia following cerebral infarction; Z93.1 Gastrostomy status; Z79.899 Other long term (current) drug therapy
CPT/HCPCS: 36415; 70450; 70551; 72125; 80048; 80053; 80061; 80307; 81001; 82550; 82553; 83036; 84484; 85025; 85027; 85610; 85730; 87040; 93005; 93010; 99285; J1953; J3490; J7030; S0028

== ENCOUNTER 2019-05-17 14:13 | Emergency (ER) | payer MEDICARE, OTHER ==
--- NOTE | 2019-05-17 15:44 | ER Document Report ---
ED Medical Screen (RME) - General Chief Complaint: High Blood Pressure Stated Complaint: BLOOD PRESSURE PROBLEM Time Seen by Provider: 05/17/19 15:37 Primary Care Provider: ADAM MERIDA MD [Primary Care Provider] - Follow up as needed Notes: HPI: History is limited, patient unable to provide substantial history. Patient was brought in by EMS apparently they were called out by home health nurse because of continued altered mentation and hypertension. Patient is not sure whether he received all of his blood pressure medications today. Patient with history of CVA and hypertension. On review of the chart patient was recently seen in the emergency department 2 days ago for altered mentation and questionable seizure. Patient denies any complaints at this time. I have greeted and performed a rapid initial assessment of this patient. A comprehensive ED assessment and evaluation of the patient, analysis of test results and completion of the medical decision making process will be conducted by additional ED providers PHYSICAL EXAMINATION: GENERAL: Chronically ill appearing, well-nourished and in no acute distress. HEAD: Atraumatic, normocephalic. EYES: sclera anicteric, conjunctiva are normal. ENT: Moist mucous membranes. Very poor dentition NECK: Normal range of motion LUNGS: Normal work of breathing, lung sounds clear to auscultation HEART: 2+ radial pulses bilaterally, mild tachycardia ABD: limited by positioning for exam in triage. PEG tube is noted in the left abdomen EXTREMITIES: Limited range of motion right upper extremity right lower extremity. There is an abrasion on the dorsal aspect of the left hand with erythema extending over the dorsum of the left hand from the MCP region to the wrist NEUROLOGICAL: Limited movement of the right side secondary to stroke history PSYCH: Patient does attempt to answer questions but some answers are intelligible SKIN: Warm, Dry, normal turgor, no rashes or lesions noted. TRAVEL OUTSIDE OF THE [place] IN LAST 30 DAYS: No - Related Data Allergies/Adverse Reactions: lisinopril Allergy (Verified 03/09/18 09:47) Past Medical History - Past Medical History Cardiac Medical History: Reports: Hx Congestive Heart Failure, Hx Heart Attack, Hx Hypertension Denies: Hx Atrial Fibrillation, Hx Coronary Artery Disease, Hx Hypercholesterolemia, Hx Peripheral Vascular Disease, Hx Heart Murmur Pulmonary Medical History: Denies: Hx Asthma, Hx Bronchitis, Hx COPD Neurological Medical History: Denies: Hx Cerebrovascular Accident, Hx Seizures Endocrine Medical History: Denies: Hx Diabetes Mellitus Type 1, Hx Diabetes Mellitus Type 2 Renal/ Medical History: Denies: Hx Kidney Stones, Hx Peritoneal Dialysis GI Medical History: Denies: Hx Gastroesophageal Reflux Disease Musculoskeltal Medical History: Reports Hx Arthritis - hips, Denies Hx Gout, Denies Hx Muscular Dystrophy Psychiatric Medical History: Denies: Hx Bipolar Disorder, Hx Depression, Hx Post Traumatic Stress Disorder Traumatic Medical History: Denies: Hx Fractures Past Surgical History: Reports: Other - PEG tube. Denies: Hx Pacemaker Physical Exam - Vital signs Vitals: Temp Pulse Resp BP Pulse Ox 97.5 F 81 16 184/106 H 98 05/17/19 14:24 05/17/19 14:24 05/17/19 14:24 05/17/19 14:24 05/17/19 14:24 Course - Vital Signs Vital signs: Temp Pulse Resp BP Pulse Ox 97.5 F 81 16 184/106 H 98 05/17/19 14:24 05/17/19 14:24 05/17/19 14:24 05/17/19 14:24 05/17/19 14:24 Doctor's Discharge - Discharge Referrals: ADAM MERIDA MD [Primary Care Provider] - Follow up as needed
[2019-05-17 16:19] LABS: ABSOLUTE BASOPHILS # (AUTO) 0.1 10^3/uL (0.0-0.2); ABSOLUTE EOSINOPHILS # (AUTO) 0.1 10^3/uL (0.0-0.6); ABSOLUTE LYMPHOCYTES (AUTO) 1.2 10^3/uL (0.5-4.7); ABSOLUTE MONOCYTES (AUTO) 0.8 10^3/uL (0.1-1.4); ABSOLUTE NEUT (AUTO) 5.7 10^3/uL (1.7-8.2); BASOPHILS % (AUTO) 0.8 % (0-2); EOSINOPHILS % (AUTO) 1.2 % (0-6); LYMPHOCYTES % (AUTO) 15.8 % (13-45); MEAN CORPUSCULAR HEMOGLOBIN 29.2 pg (27.0-33.4); MEAN CORPUSCULAR HGB CONC 33.1 g/dL (32.0-36.0); MEAN CORPUSCULAR VOLUME 89 fl (80-97); MONOCYTES % (AUTO) 9.6 % (3-13); PLATELET COUNT 194 10^3/uL (150-450); RED BLOOD COUNT 4.64 10^6/uL (4.35-5.55); RED CELL DISTRIBUTION WIDTH 15.2 % (11.5-14.0); SEGMENTED NEUTROPHILS % (AUTO) 72.6 % (42-78); TOTAL CELLS COUNTED % (AUTO) 100 %; WHITE BLOOD COUNT 7.8 10^3/uL (4.0-10.5)
--- NOTE | 2019-05-17 16:24 | ER Document Report ---
ED General - General Chief Complaint: High Blood Sugar Stated Complaint: BLOOD PRESSURE PROBLEM Time Seen by Provider: 05/17/19 15:37 Primary Care Provider: ADAM MERIDA MD [Primary Care Provider] - Follow up as needed Notes: Patient is a 59-year-old male with a history of CVA, hypertension, chronic kidney disease and new diagnosis of a seizure who presents the emergency department with a chief complaint of continued altered mental status and high blood pressure. EMS was called by the home health nurse who was concerned that the patient's blood pressure was elevated. Patient was discharged from this facility yesterday after being admitted for new onset seizures and altered mental status. Unable to obtain a thorough history as the patient is a poor historian. There is no family or home health nurse at the bedside. Patient denies pain. TRAVEL OUTSIDE OF THE [place] IN LAST 30 DAYS: No - Related Data Allergies/Adverse Reactions: lisinopril Allergy (Verified 03/09/18 09:47) Home Medications: Metoprolol Past Medical History - Social History Smoking Status: Unknown if Ever Smoked Family History: Reviewed & Not Pertinent Patient has suicidal ideation: No Patient has homicidal ideation: No - Past Medical History Cardiac Medical History: Reports: Hx Congestive Heart Failure, Hx Heart Attack, Hx Hypertension Denies: Hx Atrial Fibrillation, Hx Coronary Artery Disease, Hx Hypercholesterolemia, Hx Peripheral Vascular Disease, Hx Heart Murmur Pulmonary Medical History: Denies: Hx Asthma, Hx Bronchitis, Hx COPD Neurological Medical History: Denies: Hx Cerebrovascular Accident, Hx Seizures Endocrine Medical History: Denies: Hx Diabetes Mellitus Type 1, Hx Diabetes Mellitus Type 2 Renal/ Medical History: Denies: Hx Kidney Stones, Hx Peritoneal Dialysis GI Medical History: Denies: Hx Gastroesophageal Reflux Disease Musculoskeletal Medical History: Reports Hx Arthritis - hips, Denies Hx Gout, Denies Hx Muscular Dystrophy Psychiatric Medical History: Denies: Hx Bipolar Disorder, Hx Depression, Hx Post Traumatic Stress Disorder Traumatic Medical History: Denies: Hx Fractures Past Surgical History: Reports: Other - PEG tube. Denies: Hx Pacemaker Physical Exam - Vital signs Vitals: Temp Pulse Resp BP Pulse Ox 97.5 F 81 16 184/106 H 98 05/17/19 14:24 05/17/19 14:24 05/17/19 14:24 05/17/19 14:24 05/17/19 14:24 Interpretation: Hypertensive - Notes Notes: GENERAL: No acute distress. HEAD: Atraumatic, normocephalic. EYES: Pupils equal round and reactive to light, extraocular movements intact, sclera anicteric, conjunctiva are normal. ENT: Poor dentation, nares patent, oropharynx clear without exudates. Moist mucous membranes. NECK: Normal range of motion, supple without lymphadenopathy or JVD. LUNGS: Breath sounds clear to auscultation bilaterally and equal. No wheezes rales or rhonchi. HEART: Regular rate and rhythm without murmurs, rubs or gallops. ABDOMEN: Soft, nontender, normoactive bowel sounds. G-tube to left abdomen, site benign. No guarding, no rebound. No masses appreciated. BACK: No cervical, thoracic, lumbar midline tenderness. No saddle anesthesia, normal distal neurovascular exam. GENITOURINARY: Deferred. EXTREMITIES: Normal range of motion, no pitting or edema. No clubbing or cyanosis. NEUROLOGICAL: Alert and oriented to self, unable to state correct date, date. Hx. aphasia from previous stroke. PSYCH: Normal mood, normal affect. SKIN: Patient has edema and erythema noted to the left hand. Patient's third digit significantly swollen, limited range of motion due to pain, there is point tenderness to the DIP and PIP joint of the left third digit, patient can flex and extend this digit although its limited due to pain and swelling, patient does have an abrasion to the dorsal aspect of the left hand with surrounding erythema. There is no drainage. <2 sec cap refill in all digits of the left hand. + 2 left radial pulse. Course - Re-evaluation Re-evalutation: 05/17/19 16:35 I did speak with Jerry who is the patient's spouse. She states the home health nurse came out to evaluate the patient today and that she was concerned because the blood pressure was elevated. She states that the home health nurse asked the patient if he had blurred vision, he reported yes, and that she told the she needed to call 911 for an evaluation. Significant other is concerned because although home health comes out she cannot take care of the patient. She reports since coming home from the hospital yesterday he is acted more confused. She reports that he can normally get up and ambulate without much assistance and that he cannot at this time. I did read a previous ER visit from a few days ago as he does have baseline edema to his left hand. It was not recorded that he had erythema which is new. does state that the patient has not fallen or had an injury since coming home from the hospital yesterday. Besides what is noted above I did not get much of a history from the . She also appears to be a poor historian. I will obtain basic labs, chest x-ray, head CT to start. 05/17/19 18:28 I did review the chart when the patient was admitted to the hospital. It appears that his IV was in the left forearm and not the left hand. I did speak with Birgit Rouse NP who discharged the patient from the hospital yesterday. She reports that the plan was for the to call the primary care physician to get him admitted to a long-term facility as he did not qualify for this here in the hospital. She reports that an APS referral was placed as the did leave and go to [place] for 5 days. Birgit Rouse TELEGRAPH PRINTER MECHANIC to come evaluate the patient in the ER. Birgit Rouse did come to the emergency department reports that the patient is at his baseline and is the same as he was when he was discharged from the hospital yesterday. She reports that the left hand redness is new. She reports that an APS referral is currently placed. 05/17/19 20:37 Dr. Crespo did go to the bedside and reports the patient does have a left hand cellulitis. Recommends oral antibiotics. Will give first dose here in emergency department. I did speak with who will get the son to pick him up. I did discuss the diagnosis of left hand cellulitis and that she needs to get the prescription filled and started tomorrow. I did give her strict return precautions to include worsening of redness that streaks up the arm, fever, increased swelling or any new or worsening symptoms. I did also speak with the patient regards to his diagnosis. Patient is able to understand and I did inform him to elevate his left upper extremity to help with the swelling. 05/17/19 21:14 I did speak with the frank who states he is able to come and get the patient but that the patient cannot stay at his house and he does not feel comfortable taking the patient home to his as she possibly has the flu. He did ask if the patient was able to stay in the emergency department overnight and that he will come and get him in the morning. Frank reports he does have a follow-up appointment with Dr. Miles tomorrow at 1030 and that he will pick them up and take him to this appointment. I did speak with charge nurse Sanjuanita who is in agreement with this plan. - Vital Signs Vital signs: Temp Pulse Resp BP Pulse Ox 98.5 F 81 15 144/75 H 94 05/18/19 10:06 05/17/19 14:24 05/18/19 10:06 05/18/19 10:06 05/18/19 10:06 - Laboratory Result Diagrams: 05/17/19 15:50 05/17/19 15:50 Laboratory results interpreted by me: 05/17/19 05/17/19 05/17/19 15:50 15:50 16:01 RDW 15.2 H Chloride 110 H Carbon Dioxide 19 L Creatinine 2.11 H Est GFR ( Amer) 39 L Est GFR (MDRD) Non-Af 32 L Alkaline Phosphatase 151 H Urine Protein 100 H Urine Ketones TRACE H - Diagnostic Test Radiology reviewed: Reports reviewed Radiology results interpreted by me: 05/17/19 18:27 Chest X-Ray 05/17/19 16:19 IMPRESSION: Mild cardiomegaly. No acute infiltrates Hand X-Ray 05/17/19 16:19 IMPRESSION: Focal soft tissue swelling left 3rd finger PIP joint region without radiopaque foreign body or soft tissue gas. Head CT 05/17/19 16:29 IMPRESSION: No acute findings. Old left frontal infarct. Diffuse chronic white matter disease. EVIDENCE OF ACUTE STROKE: NO. Discharge - Discharge Clinical Impression: Cellulitis of left hand Altered mental status Qualifiers: Altered mental status type: unspecified Qualified Code(s): R41.82 - Altered mental status, unspecified Condition: Stable Disposition: HOME, SELF-CARE Additional Instructions: *Today you are seen in the emergency department for possible altered mental status. Your work-up including blood, urine and chest x-ray were negative. It does appear that you have left hand cellulitis. We have given you an IV dose of medications here in the emergency department. You will be placed on oral antibiotics. Please get this filled tomorrow and start the antibiotics. Please return to the emergency department if you develop fever, chills, area of infection becomes more swollen or painful and the redness starts to streak up the arm. Please keep the left hand elevated to help with the swelling. Cellulitis You have an infection of your skin and underlying soft tissues called cellulitis. This is due to bacteria, which can enter through any break in the skin, or even through an irritated hair follicle. Untreated, cellulitis will usually worsen. Antibiotics are required. Usually, warm packs or warm soaks, and elevation of the infected area are recommended. You should start getting better within 24 to 36 hours. Most infections respond quickly to the right medication. Follow-up care is important, however, to check for abscess (boil) formation, unsuspected foreign body, or resistant infection. If you develop fever, chills, or if the area of infection is becoming rapidly more swollen or painful, call the doctor at once. Prescriptions: Clindamycin HCl [Cleocin HCl] 450 mg PO TID 7 Days #63 capsule Referrals: ADAM MERIDA MD [Primary Care Provider] - Follow up as needed
[2019-05-17 16:34] LABS: HEMOGLOBIN 13.6 g/dL (13.5-17.0)
[2019-05-17 16:35] LABS: ALBUMIN 3.9 g/dL (3.5-5.0); ALKALINE PHOSPHATASE 151 U/L (38-126); ANION GAP 12 (5-19); ASPARTATE AMINO TRANSFERASE 27 U/L (17-59); BILIRUBIN,DIRECT 0.3 mg/dL (0.0-0.4); BLOOD UREA NITROGEN 20 mg/dL (7-20); CALCIUM 9.6 mg/dL (8.4-10.2); CARBON DIOXIDE 19 mmol/L (22-30); CHLORIDE 110 mmol/L (98-107); GLUCOSE 95 mg/dL (75-110); POTASSIUM 4.5 mmol/L (3.6-5.0); TOTAL PROTEIN 8.1 g/dL (6.3-8.2)
[2019-05-17 17:06] LABS: APPEARANCE,URINE CLEAR; BILIRUBIN,URINE NEGATIVE (NEGATIVE); COLOR,URINE YELLOW; GLUCOSE, URINE NEGATIVE (NEGATIVE); KETONES,URINE TRACE mg/dL (NEGATIVE); LEUKOCYTE ESTERASE,URINE NEGATIVE (NEGATIVE); NITRITE,URINE NEGATIVE (NEGATIVE); PROTEIN,URINE 100 mg/dL (NEGATIVE); URINE SPECIFIC GRAVITY 1.013; UROBILINOGEN,URINE NEGATIVE mg/dL (<2.0)
--- NOTE | 2019-05-17 17:32 | RADIOLOGY REPORT (SQ) ---
EXAM DESCRIPTION: CT HEAD WITHOUT COMPLETED DATE/TIME: 05/17/2019 5:21 pm REASON FOR STUDY: AMS COMPARISON: MRI brain 05/14/2019 CT brain 05/14/2019, 12/19/2018, 08/21/2018 TECHNIQUE: Axial images acquired through the brain without intravenous contrast. Images reviewed wi th bone, brain and subdural windows. Additional sagittal and coronal reconstructions were generated. Images stored on PACS. All CT scanners at this facility use dose modulation, iterative reconstruction, and/or weight based d osing when appropriate to reduce radiation dose to as low as reasonably achievable (ALARA). [facility]: Dose Right [facility]: CareDose [facility]: Dose Right [facility]: Teradose 4D [facility]: Smart [employer] RADIATION DOSE: CT Rad equipment meets quality standard of care and radiation dose reduction techniq ues were employed. CTDIvol: 53.2 mGy. DLP: 1070 mGy-cm. mGy. LIMITATIONS: Mild motion artifact FINDINGS: VENTRICLES: Normal size and contour. CEREBRUM: Old infarct left posterior frontal cortex and subcortical white matter left perisylvian reg ion. This is similar compared to 12/19/2018 and 05/14/2019. No CT evidence of acute large territory isc hemic change, acute intracranial hemorrhage, mass effect, or midline shift. Moderate diffuse chronic small vessel ischemic change in the hemispheric white matter. CEREBELLUM: No masses. No hemorrhage. No alteration of density. No evidence for acute infarction. EXTRAAXIAL SPACES: No fluid collections. No masses. ORBITS AND GLOBE: No intra- or extraconal masses. Normal contour of globe without masses. CALVARIUM: No fracture. PARANASAL SINUSES: No fluid or mucosal thickening. SOFT TISSUES: No mass or hematoma. OTHER: No other significant finding. IMPRESSION: No acute findings. Old left frontal infarct. Diffuse chronic white matter disease. EVIDENCE OF ACUTE STROKE: NO. COMMENT: Quality ID # [id number]: Final reports with documentation of one or more dose reduction techniques (e.g., Automated exposure control, adjustment of the mA and/or kV according to patient size, use of iterative reconstruction technique) TECHNICAL DOCUMENTATION: JOB ID: [id number] [employer]- All Rights Reserved Reading location - IP/workstation name: [email or web address]
--- NOTE | 2019-05-17 17:35 | RADIOLOGY REPORT (SQ) ---
EXAM DESCRIPTION: CHEST SINGLE VIEW COMPLETED DATE/TIME: 05/17/2019 5:25 pm REASON FOR STUDY: AMS COMPARISON: 12/19/2018, 02/09/2018 chest films EXAM PARAMETERS: NUMBER OF VIEWS: One view. TECHNIQUE: Single frontal radiographic view of the chest acquired. RADIATION DOSE: NA LIMITATIONS: None. FINDINGS: LUNGS AND PLEURA: No opacities, masses or pneumothorax. No pleural effusion. MEDIASTINUM AND HILAR STRUCTURES: No masses. Contour normal. HEART AND VASCULAR STRUCTURES: Stable mild cardiomegaly BONES: No acute findings. HARDWARE: None in the chest. OTHER: No other significant finding. IMPRESSION: Mild cardiomegaly. No acute infiltrates TECHNICAL DOCUMENTATION: JOB ID: [id number] [employer]- All Rights Reserved Reading location - IP/workstation name: [email or web address]
--- NOTE | 2019-05-17 17:37 | RADIOLOGY REPORT (SQ) ---
EXAM DESCRIPTION: HAND LEFT 3 VIEWS COMPLETED DATE/TIME: 05/17/2019 5:25 pm REASON FOR STUDY: Left hand swelling, + redness COMPARISON: None. EXAM PARAMETERS: NUMBER OF VIEWS: Three views. TECHNIQUE: AP, lateral and oblique radiographic images acquired of the left hand. LIMITATIONS: None. FINDINGS: Normal bone density. Along the left 3rd (middle) finger, there is focal soft tissue swelling along the PIP joint. No chary inal erosions. No joint space widening. Findings could reflect focal cellulitis. Early changes of seronegative spondyloarthropathy possible. Infected 3rd finger PIP joint could not entirely be exclu ded. No soft tissue gas. No radiopaque foreign body. Remainder of the bones of the hand are otherwise unremarkable. IMPRESSION: Focal soft tissue swelling left 3rd finger PIP joint region without radiopaque foreign b héctor or soft tissue gas. TECHNICAL DOCUMENTATION: JOB ID: [id number] [employer]- All Rights Reserved Reading location - IP/workstation name: [email or web address]
[2019-05-17] MEDS ORDERED: CLINDAMYCIN 600 MG/D5W RTU 600 MG/50 ML RTUPB IV ONE (20:45)
[2019-05-17] MEDS ORDERED: AMLODIPINE BESYLATE 5 MG TABLET PEG SCH (21:30)
[2019-05-17] MEDS ORDERED: APIXABAN 2.5 MG TABLET PEG SCH (21:30)
[2019-05-17] MEDS ORDERED: LEVETIRACETAM 500 MG TABLET PO SCH (21:30)
[2019-05-17] MEDS ORDERED: BACLOFEN 10 MG TABLET PEG SCH (21:30)
--- NOTE | 2019-05-17 21:52 | EKG REPORT ---
SEVERITY:- ABNORMAL ECG - SINUS RHYTHM LEFT ATRIAL ABNORMALITY LEFT BUNDLE BRANCH BLOCK : Confirmed by: Maeve Pitts MD 17-May-2019 21:51:51
[2019-05-17] MEDS ORDERED: CARVEDILOL 12.5 MG TABLET PO SCH (22:00)
[2019-05-17] MEDS ORDERED: HYDRALAZINE HCL 10 MG TABLET PEG SCH (22:00)
[2019-05-17] MEDS ORDERED: ATORVASTATIN CALCIUM 10 MG TABLET PEG SCH (22:00)
[2019-05-18 10:09] VITALS: BP 144/75
== END 2019-05-18 11:06 | disposition home or self-care (01) ==
LOC: ER 14:13
DX: L03.114 Cellulitis of left upper limb (principal); S60.512A Abrasion of left hand, initial encounter; X58.XXXA Exposure to other specified factors, initial encounter; R90.82 White matter disease, unspecified; R41.82 Altered mental status, unspecified; I11.0 Hypertensive heart disease with heart failure; I50.9 Heart failure, unspecified; Z79.899 Other long term (current) drug therapy; Z93.1 Gastrostomy status; Z86.73 Personal history of transient ischemic attack (TIA), and cerebral infarction without residual deficits; Z88.8 Allergy status to other drugs, medicaments and biological substances
CPT/HCPCS: 93005; 99285; 96365; 36415; 85025; 80053; 81001; 71045; 73130; 70450; 93010; A9270 ×7; J3490

== ENCOUNTER → 2019-06-25 | Outpatient (CLI) | payer MEDICARE, OTHER | LOC: OD 09:22 | PROVIDERS: ATTEND Family Medicine Geriatric Medicine | DX: I10 Essential (primary) hypertension (principal); Z53.8 Procedure and treatment not carried out for other reasons ==

== ENCOUNTER 2019-08-10 12:28 | Emergency (ER) | payer MEDICARE ==
--- NOTE | 2019-08-10 12:52 | ER Document Report ---
ED Fall - General Stated Complaint: FALL Time Seen by Provider: 08/10/19 12:36 Primary Care Provider: JACKI JOHNSON MD [Primary Care Provider] - Follow up as needed Notes: CHIEF COMPLAINT: Fall HPI: 59-year-old male with history of CVA with right-sided hemiparesis brought in for evaluation of a fall off the toilet. Patient was leaning forward and apparently fell forward striking his head on the ground. Unknown loss of consciousness. Patient is on aspirin but no other blood thinners per EMS report. Limited history from the patient. ROS: See HPI -limited by patient mentation MEDICATIONS: I agree with the patient medications as charted by the RN. ALLERGIES: I agree with the allergies as charted by the RN. PAST MEDICAL HISTORY/PAST SURGICAL HISTORY: Reviewed and agree as charted by RN. SOCIAL HISTORY: Reviewed and agree as charted by RN. FAMILY HISTORY: No significant familial comorbid conditions directly related to patient complaint EXAM: Reviewed vital signs as charted by RN. CONSTITUTIONAL: Alert to name. Chronically ill a small bruise on the right forehead is noted-appearing; well-nourished HEAD: Normocephalic; atraumatic EYES: PERRL; Conjunctivae clear, sclerae non-icteric ENT: normal nose; no rhinorrhea; moist mucous membranes; pharynx without lesions noted, multiple missing teeth are noted. There does appear to be a small laceration on the underside of the right tongue NECK: non-tender; no cervical lymphadenopathy, no masses CARD: RRR; no murmurs, no clicks, no rubs, no gallops; symmetric distal pulses RESP: Normal chest excursion without splinting or tachypnea; breath sounds clear and equal bilaterally; no wheezes, no rhonchi, no rales, pulse oximetry 96% on room air not hypoxic PEG tube is present ABD/GI: Normal bowel sounds; non-distended; soft, non-tender, no rebound, no guarding; no palpable organomegaly or masses. BACK: The back appears normal and is non-tender to palpation no palpable step- off. Over the thoracic and lumbar spine EXT: Contractures are noted in the right upper and lower extremity with limited movement SKIN: Normal color for age and race; warm; dry; good turgor; no acute lesions noted NEURO: Moves all extremities equally; Motor and sensory function intact PSYCH: The patient's mood and manner are alert, intelligible speech. Grooming and personal hygiene are appropriate. MDM: 59-year-old male brought for a fall with head injury. Does have some blood in the oral cavity no visible dental injuries, no visible bleeding from the gums. There is a small laceration on the underside of the right tongue that does not bisect the lateral edge of the tongue. Will obtain CT of the head and cervical spine given the contractures and limited ability to protect the head from a fall. Will obtain an AP pelvis to ensure no hip or pelvis fracture TRAVEL OUTSIDE OF THE [place] IN LAST 30 DAYS: No - Related data Allergies/Adverse Reactions: lisinopril Allergy (Verified 03/09/18 09:47) Past Medical History - Social History Smoking Status: Unknown if Ever Smoked Family History: Reviewed & Not Pertinent - Past Medical History Cardiac Medical History: Reports: Hx Congestive Heart Failure, Hx Heart Attack, Hx Hypertension Denies: Hx Atrial Fibrillation, Hx Coronary Artery Disease, Hx Hypercholesterolemia, Hx Peripheral Vascular Disease, Hx Heart Murmur Pulmonary Medical History: Denies: Hx Asthma, Hx Bronchitis, Hx COPD Neurological Medical History: Denies: Hx Cerebrovascular Accident, Hx Seizures Endocrine Medical History: Denies: Hx Diabetes Mellitus Type 1, Hx Diabetes Mellitus Type 2 Renal/ Medical History: Denies: Hx Kidney Stones, Hx Peritoneal Dialysis GI Medical History: Denies: Hx Gastroesophageal Reflux Disease Musculoskeletal Medical History: Reports Hx Arthritis - hips, Denies Hx Gout, Denies Hx Muscular Dystrophy Psychiatric Medical History: Denies: Hx Bipolar Disorder, Hx Depression, Hx Post Traumatic Stress Disorder Traumatic Medical History: Denies: Hx Fractures Past Surgical History: Reports: Other - PEG tube. Denies: Hx Pacemaker Physical Exam - Vital signs Vitals: Pulse Ox 99 08/10/19 12:52 Course - Re-evaluation Re-evalutation: 08/10/19 14:14 CT and x-ray imaging does not show acute fracture or bleed. The wound under the tongue does appear to be occasionally oozing some blood. Patient is still responsive answers questions reasonably accurately. Is able to make needs known. Will discharge home - Vital Signs Vital signs: Temp Pulse Resp BP Pulse Ox 98.7 F 174/93 H 98 08/10/19 13:31 08/10/19 14:02 08/10/19 14:02 Discharge - Discharge Clinical Impression: Fall Qualifiers: Encounter type: initial encounter Qualified Code(s): W19.XXXA - Unspecified fall, initial encounter Laceration of tongue Qualifiers: Encounter type: initial encounter Qualified Code(s): S01.512A - Laceration without foreign body of oral cavity, initial encounter Condition: Stable Disposition: HOME, SELF-CARE Additional Instructions: Soft foods for the next 24 hours. Imaging studies did not show evidence of fracture or bleed. Follow-up with primary care provider for reevaluation of symptoms, call for appointment. Referrals: JACKI JOHNSON MD [Primary Care Provider] - Follow up as needed
--- NOTE | 2019-08-10 13:30 | RADIOLOGY REPORT (SQ) ---
EXAM DESCRIPTION: PELVIS AP IMAGES COMPLETED DATE/TIME: 08/10/2019 1:18 pm REASON FOR STUDY: fall COMPARISON: None. NUMBER OF VIEWS: One view TECHNIQUE: AP Pelvis LIMITATIONS: None. FINDINGS: MINERALIZATION: Normal. HIPS: Prior right hip arthroplasty. No acute fracture or dislocation. There is lucency in the left femoral head. This is increased since February 2018. Avascular necrosis cannot be excluded. PELVIS AND SACRUM: No acute fracture or dislocation. No worrisome bone lesions. PUBIS AND ISCHIUM: No acute fracture. LOWER LUMBAR SPINE: No significant findings as visualized. SOFT TISSUES: No findings. OTHER: No other significant finding. IMPRESSION: No acute fracture dislocation. Lucency in the left femoral head. Avascular necrosis ca nnot be excluded. Prior total right hip arthroplasty. COMMENT: Pelvic fractures are often occult on plain radiographs. If strong clinical suspicion for f racture, recommend CT or MR. TECHNICAL DOCUMENTATION: JOB ID: [id number] 2010 [employer]- All Rights Reserved Reading location - IP/workstation name: [email or web address]
--- NOTE | 2019-08-10 13:59 | RADIOLOGY REPORT (SQ) ---
EXAM DESCRIPTION: CT CERVICAL SPINE WITHOUT IMAGES COMPLETED DATE/TIME: 08/10/2019 1:49 pm REASON FOR STUDY: fall COMPARISON: 05/14/2019. TECHNIQUE: Axial images acquired through the cervical spine without intravenous contrast. Images re viewed with lung, soft tissue and bone windows. Reconstructed coronal and sagittal MPR images review ed. Images stored on PACS. All CT scanners at this facility use dose modulation, iterative reconstruction, and/or weight based d osing when appropriate to reduce radiation dose to as low as reasonably achievable (ALARA). [facility]: Dose Right [facility]: CareDose [facility]: Dose Right [facility]: Teradose 4D [facility]: Smart [employer] RADIATION DOSE: CT Rad equipment meets quality standard of care and radiation dose reduction techniq ues were employed. CTDIvol: 23.5 mGy. DLP: 496 mGy-cm. mGy. LIMITATIONS: None. FINDINGS: ALIGNMENT: Anatomic. MINERALIZATION: Normal. VERTEBRAL BODIES: No fractures or dislocation. DISCS: No significant disc disease. FACETS, LATERAL MASSES, POSTERIOR ELEMENTS: No fractures. No dislocation. No acute findings. HARDWARE: None in the spine. VISUALIZED RIBS: No fractures. LUNG APICES AND SOFT TISSUES: No significant or acute findings. OTHER: No other significant finding. IMPRESSION: NO ACUTE OR SIGNIFICANT FINDINGS IN THE CERVICAL SPINE. TECHNICAL DOCUMENTATION: JOB ID: [id number] Quality ID # [id number]: Final reports with documentation of one or more dose reduction techniques (e.g., Au tomated exposure control, adjustment of the mA and/or kV according to patient size, use of iterative reconstruction technique) 2010 [employer]- All Rights Reserved Reading location - IP/workstation name: [email or web address]
--- NOTE | 2019-08-10 14:02 | RADIOLOGY REPORT (SQ) ---
EXAM DESCRIPTION: CT HEAD WITHOUT IMAGES COMPLETED DATE/TIME: 08/10/2019 1:49 pm REASON FOR STUDY: trauma COMPARISON: 05/17/2019. TECHNIQUE: Axial images acquired through the brain without intravenous contrast. Images reviewed wi th bone, brain and subdural windows. Additional sagittal and coronal reconstructions were generated. Images stored on PACS. All CT scanners at this facility use dose modulation, iterative reconstruction, and/or weight based d osing when appropriate to reduce radiation dose to as low as reasonably achievable (ALARA). [facility]: Dose Right [facility]: CareDose [facility]: Dose Right [facility]: Teradose 4D [facility]: Smart Say2me RADIATION DOSE: CT Rad equipment meets quality standard of care and radiation dose reduction techniq ues were employed. CTDIvol: 53.2 mGy. DLP: 991 mGy-cm.mGy. LIMITATIONS: None. FINDINGS: VENTRICLES: Prominent. CEREBRUM: No masses. No hemorrhage. No midline shift. Areas of low density in the white matter mos t likely due to chronic micro-vascular ischemic change. Old left frontal lobe infarct. No evidence for acute infarction. CEREBELLUM: No masses. No hemorrhage. No alteration of density. No evidence for acute infarction. EXTRAAXIAL SPACES: Age-related involutional change. No fluid collections. No masses. ORBITS AND GLOBE: No intra- or extraconal masses. Normal contour of globe without masses. CALVARIUM: No fracture. PARANASAL SINUSES: No fluid or mucosal thickening. SOFT TISSUES: No mass or hematoma. OTHER: No other significant finding. IMPRESSION: CHRONIC CHANGES OF ATROPHY AND MICROVASCULAR ISCHEMIA. OLD LEFT FRONTAL LOBE INFARCT. NO ACUTE PROCESS. EVIDENCE OF ACUTE STROKE: NO. TECHNICAL DOCUMENTATION: JOB ID: [id number] Quality ID # [id number]: Final reports with documentation of one or more dose reduction techniques (e.g., Au tomated exposure control, adjustment of the mA and/or kV according to patient size, use of iterative reconstruction technique) 2010 [employer]- All Rights Reserved Reading location - IP/workstation name: [email or web address]
[2019-08-10 15:33] VITALS: BP 171/95
== END 2019-08-10 15:34 | disposition home or self-care (01) ==
LOC: ER 12:28
DX: S01.512A Laceration without foreign body of oral cavity, initial encounter (principal); W19.XXXA Unspecified fall, initial encounter; Z79.82 Long term (current) use of aspirin; Z86.73 Personal history of transient ischemic attack (TIA), and cerebral infarction without residual deficits; I50.9 Heart failure, unspecified; I11.0 Hypertensive heart disease with heart failure
CPT/HCPCS: 70450; 72125; 72170; 99284

== ENCOUNTER 2019-09-09 14:24 | Emergency (ER) | payer MEDICARE, OTHER ==
--- NOTE | 2019-09-09 15:24 | ER Document Report ---
ED Medical Screen (RME) - General Chief Complaint: Leg Pain Stated Complaint: LEG PAIN Time Seen by Provider: 09/09/19 15:15 Primary Care Provider: JACKI JOHNSON MD [Primary Care Provider] - Follow up as needed TRAVEL OUTSIDE OF THE [place] IN LAST 30 DAYS: No - HPI Notes: 09/09/19 15:21 59-year-old male with a history of left-sided strokes with right-sided deficit x3 presents to the emergency room via EMS for lethargy, weakness and pain to bilateral knees status post fall x2 days ago. Patient's blood pressure and heart rate were elevated in triage. Patient is partially aphasic. Patient states he did run out of his blood pressure medications. Patient states that he fell onto a rug, denies hitting head or change in level consciousness. Denies any belly pain, denies any nausea vomiting, chest pain, shortness of breath, lower back pain. I have greeted and performed a rapid initial assessment of this patient. A comprehensive ED assessment and evaluation of the patient, analysis of test results and completion of the medical decision making process will be conducted by additional ED providers. PHYSICAL EXAMINATION: NECK: Normal range of motion CV: s1, s2 regular LUNGS: No respiratory distress Musculoskeletal: Normal range of motion NEUROLOGICAL: Normal speech, normal gait. SKIN: Warm, Dry, normal turgor, no rashes or lesions noted. Left knee with abrasion - Related Data Allergies/Adverse Reactions: lisinopril Allergy (Verified 03/09/18 09:47) Past Medical History - Past Medical History Cardiac Medical History: Reports: Hx Congestive Heart Failure, Hx Heart Attack, Hx Hypertension Denies: Hx Atrial Fibrillation, Hx Coronary Artery Disease, Hx Hypercholesterolemia, Hx Peripheral Vascular Disease, Hx Heart Murmur Pulmonary Medical History: Denies: Hx Asthma, Hx Bronchitis, Hx COPD Neurological Medical History: Denies: Hx Cerebrovascular Accident, Hx Seizures Endocrine Medical History: Denies: Hx Diabetes Mellitus Type 1, Hx Diabetes Mellitus Type 2 Renal/ Medical History: Denies: Hx Kidney Stones, Hx Peritoneal Dialysis GI Medical History: Denies: Hx Gastroesophageal Reflux Disease Musculoskeltal Medical History: Reports Hx Arthritis - hips, Denies Hx Gout, Denies Hx Muscular Dystrophy Psychiatric Medical History: Denies: Hx Bipolar Disorder, Hx Depression, Hx Post Traumatic Stress Disorder Traumatic Medical History: Denies: Hx Fractures Past Surgical History: Reports: Other - PEG tube. Denies: Hx Pacemaker Doctor's Discharge - Discharge Referrals: JACKI JOHNSON MD [Primary Care Provider] - Follow up as needed
--- NOTE | 2019-09-09 16:00 | RADIOLOGY REPORT (SQ) ---
EXAM DESCRIPTION: KNEE BILATERAL 1-2 VIEWS IMAGES COMPLETED DATE/TIME: 09/09/2019 3:45 pm REASON FOR STUDY: pain, s/p fall COMPARISON: 01/21/2018. NUMBER OF VIEWS: Two views. TECHNIQUE: AP and lateral radiographic images acquired of the right and left knee. LIMITATIONS: None. FINDINGS: MINERALIZATION: Normal. BONES: No acute fracture or dislocation. No worrisome bone lesions. No significant osteophytes. JOINT: Suprapatellar fusion in the left knee. No chondrocalcinosis. OTHER: No other significant finding. IMPRESSION: LEFT KNEE JOINT EFFUSION. NO OTHER SIGNIFICANT FINDINGS. TECHNICAL DOCUMENTATION: JOB ID: [id number] 2010 [employer]- All Rights Reserved Reading location - IP/workstation name: [email or web address]
--- NOTE | 2019-09-09 16:02 | RADIOLOGY REPORT (SQ) ---
EXAM DESCRIPTION: CHEST SINGLE VIEW IMAGES COMPLETED DATE/TIME: 09/09/2019 3:45 pm REASON FOR STUDY: weakness, lethargy COMPARISON: 05/17/2019. EXAM PARAMETERS: NUMBER OF VIEWS: One view. TECHNIQUE: Single frontal radiographic view of the chest acquired. RADIATION DOSE: NA LIMITATIONS: None. FINDINGS: LUNGS AND PLEURA: No opacities, masses or pneumothorax. No pleural effusion. MEDIASTINUM AND HILAR STRUCTURES: No masses. Contour normal. HEART AND VASCULAR STRUCTURES: Heart upper limits of normal in size. Normal vasculature. BONES: No acute findings. HARDWARE: None in the chest. OTHER: No other significant finding. IMPRESSION: NO ACUTE RADIOGRAPHIC FINDING IN THE CHEST. TECHNICAL DOCUMENTATION: JOB ID: [id number] 2010 [employer]- All Rights Reserved Reading location - IP/workstation name: [email or web address]
--- NOTE | 2019-09-09 19:00 | EKG REPORT ---
SEVERITY:- ABNORMAL ECG - SINUS TACHYCARDIA LEFT BUNDLE BRANCH BLOCK CONSIDER HYPEKALEMIA : Confirmed by: Scout Perez MD 09-Sep-2019 19:00:04
[2019-09-09 19:09] LABS: ABSOLUTE BASOPHILS # (AUTO) 0.1 10^3/uL (0.0-0.2); ABSOLUTE LYMPHOCYTES (AUTO) 1.5 10^3/uL (0.5-4.7); ABSOLUTE MONOCYTES (AUTO) 1.6 10^3/uL (0.1-1.4); ABSOLUTE NEUT (AUTO) 9.2 10^3/uL (1.7-8.2); BASOPHILS % (AUTO) 0.7 % (0-2); EOSINOPHILS % (AUTO) 0.1 % (0-6); HEMATOCRIT 44.4 % (37.9-51.0); HEMOGLOBIN 14.6 g/dL (13.5-17.0); LYMPHOCYTES % (AUTO) 11.9 % (13-45); MEAN CORPUSCULAR HEMOGLOBIN 28.5 pg (27.0-33.4); MEAN CORPUSCULAR VOLUME 87 fl (80-97); MONOCYTES % (AUTO) 12.6 % (3-13); PLATELET COUNT 160 10^3/uL (150-450); RED BLOOD COUNT 5.14 10^6/uL (4.35-5.55); RED CELL DISTRIBUTION WIDTH 16.4 % (11.5-14.0); SEGMENTED NEUTROPHILS % (AUTO) 74.7 % (42-78); TOTAL CELLS COUNTED % (AUTO) 100 %; WHITE BLOOD COUNT 12.4 10^3/uL (4.0-10.5)
[2019-09-09 19:20] LABS: ALBUMIN 4.1 g/dL (3.5-5.0); ALKALINE PHOSPHATASE 157 U/L (38-126); ANION GAP 14 (5-19); ASPARTATE AMINO TRANSFERASE 62 U/L (17-59); BILIRUBIN,DIRECT 0.8 mg/dL (0.0-0.4); BILIRUBIN,TOTAL 1.9 mg/dL (0.2-1.3); BLOOD UREA NITROGEN 67 mg/dL (7-20); CALCIUM 9.5 mg/dL (8.4-10.2); CARBON DIOXIDE 19 mmol/L (22-30); CHLORIDE 107 mmol/L (98-107); GLUCOSE 99 mg/dL (75-110); PHOSPHORUS 4.5 mg/dL (2.5-4.5); POTASSIUM 5.1 mmol/L (3.6-5.0); TOTAL PROTEIN 8.5 g/dL (6.3-8.2)
[2019-09-09 19:30] LABS: APPEARANCE,URINE SLIGHTLY-CLOUDY; BILIRUBIN,URINE NEGATIVE (NEGATIVE); COLOR,URINE YELLOW; GLUCOSE, URINE NEGATIVE (NEGATIVE); KETONES,URINE NEGATIVE (NEGATIVE); LEUKOCYTE ESTERASE,URINE NEGATIVE (NEGATIVE); NITRITE,URINE NEGATIVE (NEGATIVE); PROTEIN,URINE 100 mg/dL (NEGATIVE); URINE SPECIFIC GRAVITY 1.013
--- NOTE | 2019-09-10 01:33 | RADIOLOGY REPORT (SQ) ---
CLINICAL HISTORY: weakness COMPARISON: 08/10/2019. TECHNIQUE: CT HEAD WITHOUT IV CONTRAST on 09/10/2019 12:40 AM CDT This exam was performed according to our departmental dose-optimization program, which includes automated exposure control, adjustment of the mA and/or kV according to patient size and/or use of iterative reconstruction technique. FINDINGS: There is a slightly heterogeneous but predominantly low density extra-axial fluid collection in the left frontoparietal region measuring 5 mm in depth. There is posterior left frontal lobe encephalomalacia. There is no hydrocephalus. There is no significant volume loss for age. There are mild patchy hypodensities within the periventricular and subcortical white matter, consistent with microangiopathic ischemic changes. The calvarium is intact. Orbits and globes are unremarkable. The paranasal sinuses are clear. Mastoid air cells are clear. IMPRESSION: Slightly more heterogeneous appearance of chronic left subdural hematoma. This may be secondary to a small acute component.
--- NOTE | 2019-09-10 02:01 | ER Document Report ---
ED Dizziness/Weakness - General Chief Complaint: Weakness Stated Complaint: LEG PAIN Time Seen by Provider: 09/09/19 15:15 Primary Care Provider: JACKI JOHNSON MD [Primary Care Provider] - Follow up as needed Mode of Arrival: Wheelchair Information source: Patient Notes: 59-year-old male patient presenting to the emergency department chief complaint of generalized weakness. Patient reports this is been ongoing for the last 2 days, he states 2 days ago he fell and has been unable to walk since then. He does report a history of 3 strokes with right-sided residual deficits. He denies any new deficits other than the generalized weakness to his bilateral lower extremities. He has not traveled, he has not had a fever or otherwise been ill and has had no known exposure 20 COVID-19 patients. TRAVEL OUTSIDE OF THE [place] IN LAST 30 DAYS: No - Related Data Allergies/Adverse Reactions: lisinopril Allergy (Verified 09/09/19 15:24) Past Medical History - General Information source: Patient - Social History Smoking Status: Former Smoker Chew tobacco use (# tins/day): No Frequency of alcohol use: None Drug Abuse: None Family History: Reviewed & Not Pertinent Patient has homicidal ideation: No - Past Medical History Cardiac Medical History: Reports: Hx Congestive Heart Failure, Hx Heart Attack, Hx Hypertension Denies: Hx Atrial Fibrillation, Hx Coronary Artery Disease, Hx Hypercholesterolemia, Hx Peripheral Vascular Disease, Hx Heart Murmur Pulmonary Medical History: Denies: Hx Asthma, Hx Bronchitis, Hx COPD Neurological Medical History: Denies: Hx Cerebrovascular Accident, Hx Seizures Endocrine Medical History: Denies: Hx Diabetes Mellitus Type 1, Hx Diabetes Mellitus Type 2 Renal/ Medical History: Denies: Hx Kidney Stones, Hx Peritoneal Dialysis GI Medical History: Denies: Hx Gastroesophageal Reflux Disease Musculoskeletal Medical History: Reports Hx Arthritis - hips, Denies Hx Gout, Denies Hx Muscular Dystrophy Psychiatric Medical History: Denies: Hx Bipolar Disorder, Hx Depression, Hx Post Traumatic Stress Disorder Traumatic Medical History: Denies: Hx Fractures Past Surgical History: Reports: Other - PEG tube. Denies: Hx Pacemaker Review of Systems - Review of Systems Neurological/Psychological: Other - BILATERAL LOWER EXTREMITY WEAKNESS Physical Exam - Vital signs Vitals: Temp 97.8 F 09/09/19 15:17 - Notes Notes: GENERAL: No acute distress. HEAD: Atraumatic, normocephalic. EYES: Pupils equal round and reactive to light, extraocular movements intact, sclera anicteric, conjunctiva are normal. ENT: Poor dentation, nares patent, oropharynx clear without exudates. Moist mucous membranes. NECK: Normal range of motion, supple without lymphadenopathy or JVD. LUNGS: Breath sounds clear to auscultation bilaterally and equal. No wheezes rales or rhonchi. HEART: Regular rate and rhythm without murmurs, rubs or gallops. ABDOMEN: Soft, nontender, normoactive bowel sounds. G-tube to left abdomen, site benign. No guarding, no rebound. No masses appreciated. BACK: No cervical, thoracic, lumbar midline tenderness. No saddle anesthesia, normal distal neurovascular exam. GENITOURINARY: Deferred. EXTREMITIES: Normal range of motion, no pitting or edema. No clubbing or cyanosis. NEUROLOGICAL: Alert and oriented to self, unable to state correct date, date. Hx. aphasia from previous stroke. PSYCH: Normal mood, normal affect. SKIN: Abrasions to bilateral knees. Course - Re-evaluation Re-evalutation: 09/10/19 02:00 Call placed to [facility] after speaking with radiologist. Rad iologist called stating that there is an acute on chronic subdural hematoma. 09/10/19 03:27 Patient accepted for transfer to [facility]. Dr. Rene accepting. 09/10/19 04:20 Transport team is at bedside to take patient to [facility]. Patient reevaluated at this time. Patient stable for transfer. - Vital Signs Vital signs: Temp Pulse Resp BP Pulse Ox 98.6 F 108 H 17 159/90 H 99 09/10/19 04:31 09/10/19 00:43 09/10/19 04:01 09/10/19 04:00 09/10/19 04:01 - Laboratory Result Diagrams: 09/09/19 18:53 09/09/19 18:53 Laboratory results interpreted by me: 09/09/19 09/09/19 09/09/19 16:30 18:53 18:53 WBC 12.4 H RDW 16.4 H Lymph % (Auto) 11.9 L Absolute Neuts (auto) 9.2 H Absolute Monos (auto) 1.6 H Potassium 5.1 H Carbon Dioxide 19 L BUN 67 H Creatinine 2.96 H Est GFR ( Amer) 26 L Est GFR (MDRD) Non-Af 22 L Magnesium 2.5 H Total Bilirubin 1.9 H Direct Bilirubin 0.8 H AST 62 H Alkaline Phosphatase 157 H Total Protein 8.5 H Urine Protein 100 H Urine Blood SMALL H Urine Urobilinogen 2.0 H - Diagnostic Test Radiology reviewed: Image reviewed, Reports reviewed - EKG Interpretation by Me EKG shows normal: Sinus rhythm Discharge - Discharge Clinical Impression: Acute expansion of chronic intracranial subdural hematoma, Weakness Condition: Fair Disposition: [facility] Referrals: JACKI JOHNSON MD [Primary Care Provider] - Follow up as needed
[2019-09-10 04:04] VITALS: BP 159/90
== END 2019-09-10 04:31 | disposition short-term general hospital (02) ==
LOC: ER 14:24
DX: I62.03 Nontraumatic chronic subdural hemorrhage (principal); R53.1 Weakness; M79.606 Pain in leg, unspecified; R53.83 Other fatigue; M25.562 Pain in left knee; M25.561 Pain in right knee; I50.9 Heart failure, unspecified; I11.0 Hypertensive heart disease with heart failure; I25.2 Old myocardial infarction
CPT/HCPCS: 36415; 70450; 71045; 80053; 81001; 82962; 83735; 84100; 84484; 85025; 93005; 93010; 99285